=== PATIENT | female | born 1995 | race Caucasian/White ===

== ENCOUNTER 2020-10-21 16:30 | Emergency (ER) | payer OTHER, SELFPAY ==
[2020-10-21 16:40] VITALS: BP 132/86; PULSE 106; RESP 18; TEMP 36.2; O2SAT 98
--- NOTE | 2020-10-21 17:03 | ED.ALLEREA ---
HPI - Allergic Reaction General Chief complaint: Allergic Reaction Stated complaint: Allergic rx to COVID vaccine Time Seen by Provider: 10/21/20 16:32 History of Present Illness HPI narrative: 24 yo female w/ h/o asthma presents to the ED for possible allergic reaction. She just received the second dose of the COVID-19 vaccine. Shortly following that she began to feeling tingling in her lips, and a sensation of swelling in her throat. Observers thought her lips may be bigger than usual. She took benadryl. She had similar, but more mild symptoms after the first dose. No CP, SOB, nausea, rash Related Data Home Medications Medication Instructions Recorded Confirmed albuterol sulfate INHALATION 10/21/20 10/21/20 cetirizine mg 10/21/20 dextroamphetamine-amphetamine 10/21/20 Allergies Allergy/AdvReac Type Severity Reaction Status Date / Time No Known Allergies Allergy Verified 10/21/20 16:47 Review of Systems Review of Systems: All systems reviewed & are unremarkable except as noted in HPI and below Constitutional: Constitutional: Denies fever(s) and Denies weakness ENT: Denies sore throat Cardiovascular: Cardiovascular: Denies chest pain Respiratory: Respiratory: Denies dyspnea Gastrointestinal: Gastrointestinal: Denies abdominal pain and Denies nausea Neurologic: Denies dizziness and Denies weakness Allergic/Immunologic: Allergic/Immunologic: Reports lip swelling and Reports throat swelling PMF Past Medical History Medical History (Updated 10/21/20 @ 19:51 by Carlos Hensley MD) Asthma Social History Social History (Updated 10/21/20 @ 19:51 by Carlos Hensley MD) Smoking status: Never smoker Gender identity (if verbalized by the patient): Female Exam Const: General: healthy appearing, no acute distress and alert Orientation/consciousness: patient oriented x3 HENMT: Head: normal to inspection Other: No significant swelling of the lips tongue pallate or visable portion of the throat. Neck: Neck: normal visual inspection Resp: Effort & Inspection: normal respiratory effort Auscultation: clear to auscultation bilaterally Other: No stridor Cardio: Rate: regular rate Rhythm: regular rhythm GI: GI Palp: Yes Soft to palpation and No Tenderness to palpation present (GI) Skin: General skin exam: normal color Rashes: no rashes Neuro: General: patient oriented x3 and CN's II-XI intact bilaterally Speech: normal speech Extrem: General: normal to inspection Course Vital Signs Vital signs: Vital Signs Temperature 36.2 C L 10/21/20 16:40 Pulse Rate 106 H 10/21/20 16:40 Respiratory Rate 18 10/21/20 16:40 Blood Pressure 132/86 10/21/20 16:40 Pulse Oximetry 98 10/21/20 16:40 Temperature 36.2 C L 10/21/20 16:40 Pulse Rate 83 10/21/20 17:16 Respiratory Rate 25 H 10/21/20 17:16 Blood Pressure 116/91 H 10/21/20 17:16 Pulse Oximetry 99 10/21/20 17:16 MDM - Allergic Reaction MDM Narrative Medical decision making narrative: I see no objective evidence of allergic reaction at this time. I will observe her on the monitor an intervene if her condition changes. After 1 hour she says that her symptoms have resolve and her exam is unchanged. I believe that she is safe for discharge at this time. Differential Diagnosis Differential diagnosis: Likely anaphylaxis, allergic reaction, angioedema, adverse reaction to drug and other (anxiety) Discharge Plan Discharge Clinical Impression: Adverse reaction to drug Qualifiers: Encounter type: initial encounter Qualified Code(s): T50.905A - Adverse effect of unspecified drugs, medicaments and biological substances, initial encounter Patient Disposition: Home, Self-Care Condition: Stable Instructions: Allergies (ED) Prescriptions: No Action cetirizine 10 mg tablet RF: 0 dextroamphetamine-amphetamine 15 mg tablet RF: 0 albuterol sulfate 90 mcg/actuation HFA aerosol inhaler
[2020-10-21 17:16] VITALS: BP 116/91; PULSE 83; RESP 25; O2SAT 99
--- NOTE | 2020-10-21 17:23 | PC.NURSE ---
Pt states all sxs have resolved at this time. Dr. Hensley made aware.
== END 2020-10-21 17:41 | disposition home or self-care (01) ==
PROVIDERS: Emergency Provider Emergency Medicine; PCP Physician Assistant
DX: R09.89 Other specified symptoms and signs involving the circulatory and respiratory systems (principal); R20.2 Paresthesia of skin; T50.B95A Adverse effect of other viral vaccines, initial encounter; J45.909 Unspecified asthma, uncomplicated
CPT/HCPCS: 99281

== ENCOUNTER 2021-10-23 00:09 | Day surgery (SDC) | payer OTHER, SELFPAY ==
[2021-10-12 12:45] VITALS: BMI 47.3
[2021-10-23 11:41] VITALS: BP 135/92; PULSE 83; RESP 16; TEMP 35.9; O2SAT 98; BMI 45.8
--- NOTE | 2021-10-23 11:51 | WPDANESEPPF ---
Anes - Initial Pre Proc Eval Procedure: Operation Date: 10/23/21 13:00 Proposed Procedures p Colonoscopy - Kahlil Wallace MD Date/Time: 10/23/21 11:51 Surgeon: Kahlil Wallace MD Pre Op Diagnosis: hemorrhoids Patient Data Age: 25 Gender: F Height: 1.49 m Weight: 101.2 kg Last Vital Signs Temp 96.6 F L 10/23/21 11:41 Pulse 83 10/23/21 11:41 Resp 16 10/23/21 11:41 BP 135/92 H 10/23/21 11:41 Pulse Ox 98 10/23/21 11:41 Allergies Allergy/AdvReac Type Severity Reaction Status Date / Time No Known Allergies Allergy Verified 10/23/21 11:39 Home Medications Medication Instructions Recorded Confirmed Type albuterol sulfate 1 puff INHALATION PRN PRN 10/21/20 10/23/21 History cetirizine 10 mg PO DAILY 10/21/20 10/23/21 History dextroamphetamine-amphetamine 15 mg PO BID 10/21/20 10/23/21 History Patient hx anesthesia problems: none Family hx anesthesia problems: none Results Review: All pre-operative results and documents have been reviewed as part of the pre-operative evaluation. [facility] Past Medical History Medical History (Updated 09/07/21 @ 15:52 by Nelia Ramires MA) Acrochordon Anemia Asthma Obese Family History Family History (Updated 09/08/21 @ 08:21 by Nelia Ramires MA) Father Malignant neoplasm of prostate Hypertension Depression Mother Asthma Depression Cerebrovascular accident Thyroid disorder Sibling Thyroid disorder Depression Grandparent Diabetes mellitus Depression Hypertension Social History Social History (Updated 09/08/21 @ 08:27 by Nelia Ramires MA) Smoking status: Never smoker Second hand tobacco smoke exposure: No Alcohol intake: current Drinks per week: 1 Alcohol use details: vodka, tequila, whisky, & beer Substance use: never Substance use type: does not use Living arrangements: with family 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 Gender identity (if verbalized by the patient): Female Spiritual care concerns: No Agree to blood products: Yes Anes - Eval Final PreProcedure Day of Procedure 10/23/21 11:51 Patient weight: morbidly obese Heart: regular rate and rhythm Lungs: clear to auscultation Airway: Mallampati scale class II Neurological: alert and oriented Last oral intake: >/= 8 hours ASA classification: III Emergent: no Anesthetic plan: proceed Anesthesia type and monitoring: general GIVS and standard monitoring Results Review: All pre-operative results and documents have been reviewed as part of the pre-operative evaluation. Informed Consent: The patient's anesthetic plan and its attendant risks and benefits were discussed with the patient/family/POA. Questions were solicited and answers provided to the satisfaction of the patient/family/POA.
--- NOTE | 2021-10-23 11:54 | PM.HPGS ---
History of Present Illness History of Present Illness Consent: Risks, benefits, and alternatives have been discussed and questions answered. Patient agrees to proceed with procedure. Chief complaint: hemorrhoids Narrative: Mckayla Orellana is a 25 year old female with sensation of rectal protrusion and anal itching, never had colonoscopy Review of Systems Constitutional: Constitutional: Denies headache(s) and Denies weakness Eyes: Eyes: Denies blurry vision ENT: Reports Normal hearing present, Denies headache(s) and Denies neck pain Cardiovascular: Cardiovascular: Denies chest pain and Denies dyspnea Respiratory: Respiratory: Denies dyspnea Gastrointestinal: Gastrointestinal: Reports no additional gastrointestinal complaints Genitourinary: Genitourinary: Denies dysuria Musculoskeletal: Musculoskeletal: Denies neck pain Integumentary/Breasts: Skin/Breast: Denies dry skin Neurologic: Reports Normal hearing present, Denies headache(s) and Denies weakness Psychiatric: Psychiatric: Denies anxiety Endocrine: Endocrine: Denies change in body appearance Hematologic/Lymphatic: Hematologic/Lymphatic: Denies easy bleeding Allergic/Immunologic: Allergic/Immunologic: Denies urticaria PMFSH Past Medical History Medical History (Updated 10/23/21 @ 11:55 by Kahlil Wallace MD) Acrochordon Anemia Asthma Obese Rectal itching Family History Family History (Updated 09/08/21 @ 08:21 by Nelia Ramires MA) Father Malignant neoplasm of prostate Hypertension Depression Mother Asthma Depression Cerebrovascular accident Thyroid disorder Sibling Thyroid disorder Depression Grandparent Diabetes mellitus Depression Hypertension Social History Social History (Updated 09/08/21 @ 08:27 by Nelia Ramires MA) Smoking status: Never smoker Second hand tobacco smoke exposure: No Alcohol intake: current Drinks per week: 1 Alcohol use details: vodka, tequila, whisky, & beer Substance use: never Substance use type: does not use Living arrangements: with family 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 Gender identity (if verbalized by the patient): Female Spiritual care concerns: No Agree to blood products: Yes Meds Home Medications and Allergies Home Medications Medication Instructions Recorded Confirmed Type albuterol sulfate 1 puff INHALATION PRN PRN 10/21/20 10/23/21 History cetirizine 10 mg PO DAILY 10/21/20 10/23/21 History dextroamphetamine-amphetamine 15 mg PO BID 10/21/20 10/23/21 History Allergies Allergy/AdvReac Type Severity Reaction Status Date / Time No Known Allergies Allergy Verified 10/23/21 11:39 Vital Signs Vital Signs - 24 hr 10/23/21 11:41 Temperature 96.6 F L Pulse Rate 83 Respiratory Rate 16 Blood Pressure 135/92 H Pulse Oximetry 98 Exam Const: General: comfortable and no acute distress HENMT: General nose exam: Normal nares present Eyes: General: appearance normal, both eyes and all related structures Neck: Neck: no JVD Resp: Auscultation: clear to auscultation bilaterally Cardio: Rate: regular rate Rhythm: regular rhythm GI: Inspection: non-distended GI Palp: Yes Soft to palpation Skin: General skin exam: normal color Neuro: General: gait normal Speech: normal speech Extrem: General: normal to inspection Psych: Mental Status: mental status grossly normal Assessment and Plan Assessment and plan (1) Rectal itching: Code(s): L29.0 - Pruritus ani Status: Acute Assessment and Plan: sensation of protrusion and itching, probably hemorrhoids will assess with colonoscopy
[2021-10-23] MEDS: LACTATED RINGERS 1,000 ML 150 ML IV CONT (11:59)
[2021-10-23 12:22] VITALS: BP 128/95; PULSE 96; RESP 20; O2SAT 98
[2021-10-23 12:32] VITALS: BP 119/89; PULSE 67; RESP 17; O2SAT 100
--- NOTE | 2021-10-23 12:41 | SUR.PHASEII ---
RN updated family
[2021-10-23 12:42] VITALS: BP 132/83; PULSE 59; RESP 20; O2SAT 100
== END 2021-10-23 12:50 | disposition home or self-care (01) ==
PROVIDERS: PCP Physician Assistant; Visit Provider Internal Medicine Gastroenterology
PROC: 0DJD8ZZ Inspection of Lower Intestinal Tract, Via Natural or Artificial Opening Endoscopic (ICD-10-PCS; CPT 45378; principal; 2021-10-23 13:00)
DX: K64.9 Unspecified hemorrhoids (principal); D64.9 Anemia, unspecified; J45.909 Unspecified asthma, uncomplicated; E66.01 Morbid (severe) obesity due to excess calories; Z68.42 Body mass index [BMI] 45.0-49.9, adult; Z79.51 Long term (current) use of inhaled steroids; L29.0 Pruritus ani
CPT/HCPCS: 45378; J2704; J7120

== ENCOUNTER 2021-11-15 18:05 | Emergency (ER) | payer OTHER, SELFPAY ==
--- NOTE | ~2021-11-15 | XR_ITS ---
EXAMINATION: XR forearm LT 2V EXAM DATE: 11/15/2021 18:21 INDICATION: Fall on outstretched hand, left forearm pain. TECHNIQUE: Left forearm frontal and lateral projections obtained and reviewed. There is no prior alberto dy for comparison. FINDINGS: There are no acute fractures or dislocations identified. There is no subcutaneous gas. Th e soft tissue is unremarkable. There are no radiopaque foreign bodies. IMPRESSION: 1. XR forearm LT 2V exam without acute osseous findings. Reviewed, dictated and finalized at location G. ER PRESS OPERATOR
[2021-11-15 18:15] VITALS: BP 127/70; PULSE 82; RESP 16; TEMP 37.2; O2SAT 99
--- NOTE | 2021-11-15 18:21 | PC.NURSE ---
PT DECLINED ICE FOR COMFORT
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
== END 2021-11-15 18:44 | disposition home or self-care (01) ==
PROVIDERS: Emergency Provider Nurse Practitioner; PCP Physician Assistant
DX: S63.502A Unspecified sprain of left wrist, initial encounter (principal); X58.XXXA Exposure to other specified factors, initial encounter; J45.909 Unspecified asthma, uncomplicated; E66.9 Obesity, unspecified; Z68.42 Body mass index [BMI] 45.0-49.9, adult
CPT/HCPCS: 73090; 99213; G0463

== ENCOUNTER 2021-11-23 02:20 | Day surgery (SDC) | payer OTHER, SELFPAY ==
[2021-11-10 13:52] VITALS: BMI 47.0
[2021-11-23 12:15] VITALS: BP 138/90; PULSE 86; RESP 16; TEMP 36.3; O2SAT 100
--- NOTE | 2021-11-23 12:35 | WPDHPUPDATE1 ---
History and Physical Update Update Date/Time: 11/23/21 12:35 History and Physical has been reviewed, including an updated exam of the patient. There are NO changes in the patient's condition. Risks, benefits, and alternatives have been discussed and questions answered. Patient agrees to proceed with procedure.
--- NOTE | 2021-11-23 12:36 | W.PM.PROC2 ---
Procedure Note - Detailed Date of Procedure 11/23/21 Pre-op Diagnosis hemorrhoids Post-op Diagnosis same Procedure Performed IRC (infrared coagulation of hemorhoids) Surgeon Kahlil Wallace MD Anesthesia none Indications hemorrhoids Description of Procedure rectal exam no fissure, then introduced anoscope and found grade II internal hemorrhoids, no bleeding. Then used IRC probe and hemorrhoids treated x5, 1.5 seconds each time, patient tolerated procedure. Complications No immediate complications Condition stable
[2021-11-23 12:42] VITALS: BP 131/89; PULSE 89; RESP 16; O2SAT 100
== END 2021-11-23 12:36 | disposition home or self-care (01) ==
PROVIDERS: PCP Physician Assistant; Visit Provider Internal Medicine Gastroenterology
PROC: (CPT 46930; principal; 2021-11-23 12:30)
DX: K64.1 Second degree hemorrhoids (principal); J45.909 Unspecified asthma, uncomplicated; Z79.51 Long term (current) use of inhaled steroids
CPT/HCPCS: 46930

== ENCOUNTER 2022-03-05 16:04 | Outpatient (CLI) | payer OTHER, SELFPAY ==
--- NOTE | ~2022-03-05 | US_ITS ---
EXAMINATION: US OB /maternal detail DATE: 03/05/2022 17:25 INDICATION: survey TECHNIQUE: Multiple obstetric sonographic images performed. FINDINGS: No prior studies for comparison. There is a single living fetus in variable presentation. The placenta is posterior without placenta previa. Amniotic fluid volume is normal. cardiac activity and movement is noted with a heart rate of 150 beats per minute. The following anatomy was identified as normal: 4 chamber heart 3 vessel cord cord insertion kidneys urinary bladder stomach spine diaphragm ventricles cisterna magna cerebellum The following biometric data were obtained: BPD: 45mm corresponds to gestational age 19 weeks 5 days. Head circumference: 161 mm corresponds to gestational age 18 weeks 6 days. Abdominal circumference: 136 mm corresponds to gestational age 19 weeks 0 days. Femur length: 27 mm corresponds to gestational age 18 weeks 3 days. Head circumference to abdominal circumference ratio: 1.18 (normal range for expected gestational age is 1.09-1.26). Estimated weight: 257 grams +/- 39 grams using Hadlock method. IMPRESSION: 1: Single living intrauterine with an estimated gestational age of 19weeks 0days by current ultrasound measurements, with an EDC of 07/30/2022 in variable presentation. 2. Normal survey. Reviewed, dictated and finalized at location A. IMPRESSION: 1: Single living intrauterine with an estimated gestational age of 19 weeks 0days by current ultrasound measurements, with an EDC of 07/30/2022 in va riable presentation. 2. Normal survey.
== END 2022-03-05 16:05 | disposition home or self-care (01) ==
LOC: ANHIMG 16:13
PROVIDERS: PCP Physician Assistant; Visit Provider Obstetrics & Gynecology
DX: Z34.90 Encounter for supervision of normal pregnancy, unspecified, unspecified trimester (principal); Z3A.19 19 weeks gestation of pregnancy
CPT/HCPCS: 76805

== ENCOUNTER 2023-03-24 08:16 | Outpatient (CLI) | payer OTHER, SELFPAY ==
[2023-03-24 19:48] LABS: Basophils Absolute Auto 0.1 K/mm3 (0.0-0.1); Basophils Percent Auto 0.7 % (0.2-1.2); Eosinophils Absolute Auto 0.7 K/mm3 (0-0.3); Eosinophils Percent Auto 5.5 % (0-4.4); Hematocrit 45.4 % (37.0-47.0); Hemoglobin 14.4 g/dL (12.0-15.0); Immature Granulocyte Absolute 0.06 K/mm3 (0.00-0.031); Immature Granulocyte Percent A 0.5 % (0-0.5); Lymphocytes Absolute Auto 2.97 K/mm3 (0.9-3.2); Lymphocytes Percent Auto 24.7 % (18.3-44.2); Mean Corpuscular HGB Conc 31.7 g/dl (32-36); Mean Corpuscular Hemoglobin 29.3 pg (26-34); Mean Corpuscular Volume 92.5 fl (80-100); Mean Platelet Volume 10.1 fl (7.4-10.4); Monocytes Absolute Auto 0.6 K/mm3 (0.1-0.6); Monocytes Percent Auto 4.6 % (2.6-8.5); Neutrophils Absolute Auto 7.7 K/mm3 (1.3-6.7); Platelet Count Result 354 k/mm3 (150-375); Red Blood Count 4.91 M/mm3 (4.2-5.4); Red Cell Distribution Width 13.1 % (11.5-14.5)
[2023-03-24 22:07] LABS: Alanine Aminotransferase 41 U/L (6-35); Albumin Level 4.6 g/dL (3.5-5.1); Alkaline Phosphatase 73 U/L (38-126); Anion Gap 5 mmol/L (8-16); Aspartate Amino Transferase 50 U/L (14-36); Bilirubin,Total 0.8 mg/dL (0.2-1.3); Blood Urea Nitrogen 10 mg/dL (7-17); Calcium 8.9 mg/dL (8.4-10.2); Carbon Dioxide 28 mmol/L (22-30); Chloride 103 mmol/L (98-107); Cholesterol 192 mg/dL (0-200); Estimated Glomerular Filt Rate > 60; Glucose 87 mg/dL (65-110); HDL Direct 50 mg/dL; Potassium 4.2 mmol/L (3.4-5.0); Sodium 136 mmol/L (137-145); Triglycerides 147 mg/dL (<150)
[2023-03-24 22:26] LABS: LDL Cholesterol Direct 112 mg/dL
[2023-03-24 23:10] LABS: Folic Acid 12.2 ng/mL (2.76->20)
[2023-03-25 00:51] LABS: Hemoglobin A1C 4.9 % (<5.7)
[2023-03-25 01:47] LABS: Free T4 Free Thyroxine 1.35 ng/mL (0.78-2.19); Vitamin D 25 Hydroxy 25.6 ng/mL
== END 2023-03-24 08:17 | disposition home or self-care (01) ==
LOC: ANHBWCLAB 08:18
PROVIDERS: PCP Physician Assistant; Visit Provider Physician Assistant
DX: R53.83 Other fatigue (principal); Z13.220 Encounter for screening for lipoid disorders; Z13.1 Encounter for screening for diabetes mellitus
CPT/HCPCS: 36415; 80053; 80061; 82306; 82607; 82746; 83036; 84439; 84443; 85025

== ENCOUNTER 2023-05-05 11:29 | Outpatient (CLI) | payer OTHER, SELFPAY ==
[2023-05-05 20:00] LABS: Alanine Aminotransferase 40 U/L (6-35); Albumin Level 4.5 g/dL (3.5-5.1); Alkaline Phosphatase 70 U/L (38-126); Aspartate Amino Transferase 47 U/L (14-36); Bilirubin,Total 0.5 mg/dL (0.2-1.3)
[2023-05-05 20:13] LABS: Basophils Absolute Auto 0.1 K/mm3 (0.0-0.1); Basophils Percent Auto 0.8 % (0.2-1.2); Eosinophils Absolute Auto 0.7 K/mm3 (0-0.3); Eosinophils Percent Auto 7.1 % (0-4.4); Hematocrit 45.4 % (37.0-47.0); Hemoglobin 14.4 g/dL (12.0-15.0); Immature Granulocyte Absolute 0.06 K/mm3 (0.00-0.031); Immature Granulocyte Percent A 0.6 % (0-0.5); Lymphocytes Absolute Auto 3.01 K/mm3 (0.9-3.2); Lymphocytes Percent Auto 31.9 % (18.3-44.2); Mean Corpuscular HGB Conc 31.7 g/dl (32-36); Mean Corpuscular Hemoglobin 28.9 pg (26-34); Mean Platelet Volume 9.9 fl (7.4-10.4); Monocytes Absolute Auto 0.6 K/mm3 (0.1-0.6); Monocytes Percent Auto 5.8 % (2.6-8.5); Neutrophils Absolute Auto 5.1 K/mm3 (1.3-6.7); Neutrophils Percent Auto 53.8 % (45.5-73.1); Platelet Count Result 392 k/mm3 (150-375); Red Blood Count 4.99 M/mm3 (4.2-5.4); Red Cell Distribution Width 12.3 % (11.5-14.5); White Blood Count 9.4 K/mm3 (4.5-10.0)
[2023-05-05 20:24] LABS: Hepatitis B Surface Antigen Negative (Negative)
[2023-05-05 20:30] LABS: HAV RESULT Negative (Negative); Hepatitis B Core IgM Result Negative (Negative)
[2023-05-05 20:41] LABS: Hepatitis C Virus Antibody Negative (Negative)
[2023-05-08 19:30] LABS: GGT 16 U/L (3-40)
== END 2023-05-05 11:30 | disposition home or self-care (01) ==
PROVIDERS: PCP Physician Assistant; Visit Provider Physician Assistant
DX: D72.829 Elevated white blood cell count, unspecified (principal); R74.01 Elevation of levels of liver transaminase levels
CPT/HCPCS: 36415; 80074; 80076; 82977; 85025

== ENCOUNTER 2023-09-12 00:52 | Day surgery (SDC) | payer OTHER, SELFPAY ==
[2023-09-06 11:24] VITALS: BMI 49.7
--- NOTE | 2023-09-09 09:27 | SUR.PREOP ---
Patient called regarding upcoming procedure. Reviewed preop instructions, appointment times, and procedure prep.
--- NOTE | 2023-09-09 14:59 | PM.HPGS ---
History of Present Illness History of Present Illness Consent: Risks, benefits, and alternatives have been discussed and questions answered. Patient agrees to proceed with procedure. Chief complaint: Epigastric Pain Narrative: Mckayla Orellana is a 27 year old female Referred for endoscopy to investigate epigastric pain. she has a history of acid reflux with symptoms of heartburn and occasional vomiting. She also has a sensation that food is stuck in her throat. She is able to drink water but the sensation will last even after meal. She has not had weight loss. There is concern, because her grandmother developed ulcers and eventually from that. Just a couple weeks ago she was switched from omeprazole to pantoprazole and is doing better with that. Review of Systems Review of Systems: All systems reviewed & are unremarkable except as noted in HPI and below PMFSH Past Medical History Medical History Acrochordon Anemia Asthma Obese Rectal itching Surgical History Surgical History No pertinent past surgical history Family History Family History Father Malignant neoplasm of prostate Hypertension Depression Mother Asthma Depression Cerebrovascular accident Thyroid disorder Sibling Thyroid disorder Depression Grandparent Diabetes mellitus Depression Hypertension Social History Social History Smoking status: Never smoker Second hand tobacco smoke exposure: No Alcohol intake: never Drinks per week: 1 Alcohol use details: SOCIALLY Substance use: never Substance use type: does not use Living arrangements: with family Occupation/Education: occupation 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 Gender identity (if verbalized by the patient): Female Spiritual care concerns: No Agree to blood products: Yes Meds Home Medications and Allergies Home Medications Medication Instructions Recorded Confirmed Type albuterol sulfate 90 mcg/actuation 1 puff inhalation PRN PRN Cough 10/21/20 09/12/23 History aerosol inhaler cetirizine 10 mg tablet 10 mg PO DAILY 10/21/20 09/12/23 History dextroamphetamine-amphetamine 15 15 mg PO BID 10/21/20 09/12/23 History mg tablet famotidine 40 mg tablet 40 mg PO DAILY 09/06/23 09/12/23 History pantoprazole 40 mg tablet,delayed 40 mg PO DAILY 09/06/23 09/12/23 History release Allergies Allergy/AdvReac Type Severity Reaction Status Date / Time No Known Allergies Allergy Verified 09/12/23 11:52 Exam Const: General: alert Orientation/consciousness: patient oriented x3 Resp: Auscultation: clear to auscultation bilaterally Cardio: Rhythm: regular rhythm GI: GI Palp: Yes Soft to palpation and No Tenderness to palpation present (GI) Neuro: General: patient oriented x3 Assessment and Plan Assessment and plan (1) Epigastric pain: Code(s): R10.13 - Epigastric pain Status: Acute Assessment and Plan: EGD with possible biopsy or dilatation or cautery.
[2023-09-12 11:40] VITALS: BP 134/91; PULSE 69; RESP 18; TEMP 36.2; O2SAT 100; BMI 49.6
[2023-09-12] MEDS: LACTATED RINGERS 1,000 ML 150 ML IV CONT (12:03)
--- NOTE | 2023-09-12 12:29 | WPDANESEPPF ---
Anes - Initial Pre Proc Eval Procedure: Operation Date: 09/12/23 13:00 Proposed Procedures p Esophagogastroduodenoscopy - Mike Valles MD Date/Time: 09/12/23 12:29 Surgeon: Mike Valles MD Pre Op Diagnosis: Epigastric Pain Patient Data Age: 27 Gender: F Height: 1.47 m Weight: 107.7 kg Last Vital Signs Temp 97.2 F L 09/12/23 11:40 Pulse 69 09/12/23 11:40 Resp 18 09/12/23 11:40 BP 134/91 H 09/12/23 11:40 Pulse Ox 100 09/12/23 11:40 O2 Del Method Room Air 09/12/23 11:40 Allergies Allergy/AdvReac Type Severity Reaction Status Date / Time No Known Allergies Allergy Verified 09/12/23 11:52 Home Medications Medication Instructions Recorded Confirmed Type albuterol sulfate 90 mcg/actuation 1 puff inhalation PRN PRN Cough 10/21/20 09/12/23 History aerosol inhaler cetirizine 10 mg tablet 10 mg PO DAILY 10/21/20 09/12/23 History dextroamphetamine-amphetamine 15 15 mg PO BID 10/21/20 09/12/23 History mg tablet famotidine 40 mg tablet 40 mg PO DAILY 09/06/23 09/12/23 History pantoprazole 40 mg tablet,delayed 40 mg PO DAILY 09/06/23 09/12/23 History release Patient hx anesthesia problems: none Family hx anesthesia problems: none Results Review: All pre-operative results and documents have been reviewed as part of the pre-operative evaluation. [facility] Past Medical History Medical History Acrochordon Anemia Asthma Obese Rectal itching Surgical History Surgical History No pertinent past surgical history Family History Family History Father Malignant neoplasm of prostate Hypertension Depression Mother Asthma Depression Cerebrovascular accident Thyroid disorder Sibling Thyroid disorder Depression Grandparent Diabetes mellitus Depression Hypertension Social History Social History Smoking status: Never smoker Second hand tobacco smoke exposure: No Alcohol intake: never Drinks per week: 1 Alcohol use details: SOCIALLY Substance use: never Substance use type: does not use Living arrangements: with family Occupation/Education: occupation 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 Informed Consent: The patient's anesthetic plan and its attendant risks and benefits were discussed with the patient/family/POA. Questions were solicited and answers provided to the satisfaction of the patient/family/POA.
[2023-09-12] MEDS: SIMETHICONE ORAL SUSPENSION 20 MG/0.3 ML 30 ML BOTTLE 0.6 ML IRRIGATION (12:37)
[2023-09-12 12:43] VITALS: BP 120/77; PULSE 83; RESP 19; O2SAT 100
[2023-09-12 12:53] VITALS: BP 127/84; PULSE 80; RESP 24; O2SAT 100
[2023-09-12 13:03] VITALS: BP 119/87; PULSE 62; RESP 20; O2SAT 100
== END 2023-09-12 13:10 | disposition home or self-care (01) ==
PROVIDERS: PCP Physician Assistant; Visit Provider Internal Medicine Gastroenterology
PROC: 0DJ08ZZ Inspection of Upper Intestinal Tract, Via Natural or Artificial Opening Endoscopic (ICD-10-PCS; CPT 43235; principal; 2023-09-12 13:00)
DX: K21.9 Gastro-esophageal reflux disease without esophagitis (principal); D64.9 Anemia, unspecified; J45.909 Unspecified asthma, uncomplicated; E66.01 Morbid (severe) obesity due to excess calories; Z68.42 Body mass index [BMI] 45.0-49.9, adult; Z79.51 Long term (current) use of inhaled steroids; Z80.42 Family history of malignant neoplasm of prostate; Z82.49 Family history of ischemic heart disease and other diseases of the circulatory system
CPT/HCPCS: 43235; J2704; J7120

== ENCOUNTER 2023-09-16 08:54 | Outpatient (CLI) | payer OTHER, SELFPAY ==
--- NOTE | ~2023-09-16 | US_ITS ---
US abdomen complete EXAMINATION: US Abdomen Complete INDICATION: Epigastric pain PROCEDURE: Realtime High Resolution abdomen ultrasound. COMPARISON: No prior studies for comparison FINDINGS: Gallbladder within normal limits. No gallstones, pericholecystic fluid, gallbladder wall t hickening or biliary dilatation. Common bile duct measures 4.5 mm. Liver echotexture is increased, consistent with fatty infiltration.. Pancreas within normal limits. Pancreatic tail is obscured by bowel gas. Spleen is unremarkeable. Renal echotexture is within norm al limits bilaterally without hydronephrosis, contour deforming mass or renal stone. Right kidney daron sures 10.2 cm. Left kidney measures 10.4 cm. There is a small 1.3 cm right renal cyst with layering m ilk of calcium. Visualized aspects of the aorta and IVC are within normal limits. Portal vein is patent. No sonograph ic Whitley's sign indicated by the technologist. IMPRESSION: 1: Fatty infiltration of the liver. 2: Right renal cyst measuring 1.3 cm with layering milk of calcium. Reviewed, dictated and finalized at location B. [employer]
--- NOTE | ~2023-09-16 | XR_ITS ---
EXAMINATION: XR UGIAC wo kub DATE: 09/16/2023 10:52 INDICATION: Gastroesophageal reflux disease TECHNIQUE: The patient drank thick barium, gas-producing crystals, and thin barium. A total of 472 fl uoroscopic images of the esophagus, stomach, and proximal small bowel were obtained. Fluoroscopy expo sure time was 1.4 minutes. Total DAP was 14.148 Gycm^2 COMPARISON: None. FINDINGS: The esophagus is normal without mass or stricture. Esophageal motility is normal. There is no hiatal hernia. There was no gastroesophageal reflux with provocative maneuvers. A small diverticul um arising from the second portion of the duodenum. The stomach and proximal small bowel are otherwis e normal. IMPRESSION: 1. Very small duodenal diverticulum. Otherwise normal upper GI study. Reviewed, dictated and finalized at location A. [employer]
== END 2023-09-16 08:55 | disposition home or self-care (01) ==
PROVIDERS: PCP Physician Assistant; Visit Provider Physician Assistant
DX: K57.10 Diverticulosis of small intestine without perforation or abscess without bleeding (principal); N28.1 Cyst of kidney, acquired; K76.0 Fatty (change of) liver, not elsewhere classified; R74.01 Elevation of levels of liver transaminase levels; K21.9 Gastro-esophageal reflux disease without esophagitis
CPT/HCPCS: 74246; 76700

== ENCOUNTER 2024-09-17 15:37 | Outpatient (CLI) | payer OTHER, MEDICAID, SELFPAY ==
[2024-09-17 16:31] VITALS: BP 113/67; PULSE 84; BMI 59.2
[2024-09-17 16:46] VITALS: BP 94/69; PULSE 102
[2024-09-17 16:49] LABS: Basophils Absolute Auto 0.1 K/mm3 (0.0-0.1); Basophils Percent Auto 0.5 % (0.2-1.2); Eosinophils Absolute Auto 0.4 K/mm3 (0-0.3); Hematocrit 34.6 % (37.0-47.0); Hemoglobin 11.5 g/dL (12.0-15.0); Immature Granulocyte Absolute 0.08 K/mm3 (0.00-0.031); Immature Granulocyte Percent A 0.7 % (0-0.5); Lymphocytes Absolute Auto 2.44 K/mm3 (0.9-3.2); Lymphocytes Percent Auto 22.1 % (18.3-44.2); Mean Corpuscular HGB Conc 33.2 g/dl (32-36); Mean Corpuscular Hemoglobin 27.4 pg (26-34); Mean Corpuscular Volume 82.4 fl (80-100); Monocytes Absolute Auto 0.7 K/mm3 (0.1-0.6); Monocytes Percent Auto 6.7 % (2.6-8.5); Neutrophils Absolute Auto 7.3 K/mm3 (1.3-6.7); Platelet Count Result 266 k/mm3 (150-375); Red Cell Distribution Width 13.4 % (11.5-14.5)
[2024-09-17 16:53] VITALS: BP 124/80; PULSE 88
[2024-09-17 17:01] VITALS: BP 124/74; PULSE 76
[2024-09-17 17:01] LABS: Alanine Aminotransferase 13 U/L (6-35); Albumin Level 3.4 g/dL (3.5-5.1); Alkaline Phosphatase 114 U/L (38-126); Anion Gap 5 mmol/L (4-12); Aspartate Amino Transferase 18 U/L (14-36); Bilirubin,Total 0.3 mg/dL (0.2-1.3); Blood Urea Nitrogen 9 mg/dL (7-17); Calcium 8.6 mg/dL (8.4-10.2); Carbon Dioxide 21 mmol/L (22-30); Chloride 107 mmol/L (98-107); Estimated Glomerular Filt Rate > 60; Glucose 87 mg/dL (65-110); Potassium 3.8 mmol/L (3.4-5.0); Sodium 133 mmol/L (137-145); Uric Acid 5.4 mg/dL (2.5-7.5)
[2024-09-17 17:08] LABS: Add Urine Microscopic? YES; Appearance Urine Turbid (Clear); Bacteria Urine 4+ /hpf; Bilirubin Urine Negative (Negative); Blood Urine Negative (Negative); Color Urine Yellow (Yellow); Glucose Urine UA Negative (Negative); Ketones Urine Negative (Negative); Leukocyte Esterase Ur 2+ LEU/UL (Negative); Need Manual Microscopic Reviewed; Nitrate Urine Negative (Negative); Non Pathogenic Casts 0-2; Protein Urine Trace mg/dL (Negative); RBC Urine 21-50 /hpf (0-2); Specific Grav Ur 1.013 (1.001-1.035); Squamous Epithelial Cell Urine Moderate /hpf (Few); Urobilinogen Urine 0.2 mg/dL (<2.0); WBC Urine 21-50 /hpf (0-3)
[2024-09-17 17:16] VITALS: BP 124/75; PULSE 83
[2024-09-17 17:20] LABS: Creatinine Urine 73.6 mg/dL; Total Protein Urine Random 11 mg/dL; Ur Ttl Prot Creatinine Ratio 0.15 mg/mg (0-0.20)
[2024-09-17 17:32] VITALS: BP 128/64; PULSE 81
[2024-09-24 16:53] LABS: Chenodeoxycholic Acid 0.6 umol/L (< OR = 3.9); Cholic Acid <0.5 umol/L (< OR = 2.8); Deoxycholic Acid <0.5 umol/L (< OR = 2.3); Total Bile Acids <1.5 umol/L (< OR = 8.3)
== END 2024-09-17 17:45 | disposition home or self-care (01) ==
LOC: ANHOBOP 15:47 → ANHOBPP 09-24 08:29
PROVIDERS: PCP Physician Assistant; Visit Provider Obstetrics & Gynecology
DX: O13.9 Gestational [pregnancy-induced] hypertension without significant proteinuria, unspecified trimester (principal); Z3A.00 Weeks of gestation of pregnancy not specified
CPT/HCPCS: 36415; 59025; 80053; 81001; 82542; 82570; 84156; 84550; 85025; 87086; 99199

== ENCOUNTER 2024-09-28 15:56 | Outpatient (CLI) | payer OTHER, MEDICAID, SELFPAY ==
[2024-09-28 16:27] VITALS: BP 156/92; PULSE 79
[2024-09-28 16:31] VITALS: BP 156/93; PULSE 83
[2024-09-28 16:34] LABS: Basophils Absolute Auto 0.1 K/mm3 (0.0-0.1); Basophils Percent Auto 0.5 % (0.2-1.2); Eosinophils Absolute Auto 0.4 K/mm3 (0-0.3); Eosinophils Percent Auto 3.6 % (0-4.4); Hemoglobin 12.6 g/dL (12.0-15.0); Immature Granulocyte Absolute 0.08 K/mm3 (0.00-0.031); Immature Granulocyte Percent A 0.7 % (0-0.5); Immature Platelet Fraction Pct 7.8 % (0.9-11.2); Lymphocytes Absolute Auto 2.71 K/mm3 (0.9-3.2); Lymphocytes Percent Auto 25.3 % (18.3-44.2); Mean Corpuscular HGB Conc 33.2 g/dl (32-36); Mean Corpuscular Hemoglobin 27.3 pg (26-34); Mean Corpuscular Volume 82.4 fl (80-100); Mean Platelet Volume 11.4 fl (7.4-10.4); Monocytes Absolute Auto 0.7 K/mm3 (0.1-0.6); Monocytes Percent Auto 6.9 % (2.6-8.5); Neutrophils Absolute Auto 6.7 K/mm3 (1.3-6.7); Platelet Count Result 282 k/mm3 (150-375); Red Blood Count 4.61 M/mm3 (4.2-5.4); Red Cell Distribution Width 13.6 % (11.5-14.5); White Blood Count 10.7 K/mm3 (4.5-10.0)
[2024-09-28 16:37] LABS: Add Urine Microscopic? NO; Appearance Urine Clear (Clear); Bilirubin Urine Negative (Negative); Blood Urine Negative (Negative); Color Urine Yellow (Yellow); Glucose Urine UA Negative (Negative); Ketones Urine Negative (Negative); Leukocyte Esterase Ur Negative LEU/UL (Negative); Nitrate Urine Negative (Negative); Protein Urine Negative (Negative)
[2024-09-28 16:42] LABS: Creatinine Urine 61.9 mg/dL; Total Protein Urine Random 11 mg/dL; Ur Ttl Prot Creatinine Ratio 0.18 mg/mg (0-0.20)
[2024-09-28 16:44] LABS: Alanine Aminotransferase 14 U/L (6-35); Albumin Level 3.6 g/dL (3.5-5.1); Alkaline Phosphatase 133 U/L (38-126); Anion Gap 5 mmol/L (4-12); Aspartate Amino Transferase 23 U/L (14-36); Bilirubin,Total 0.4 mg/dL (0.2-1.3); Blood Urea Nitrogen 7 mg/dL (7-17); Calcium 8.9 mg/dL (8.4-10.2); Carbon Dioxide 21 mmol/L (22-30); Chloride 106 mmol/L (98-107); Estimated Glomerular Filt Rate > 60; Glucose 89 mg/dL (65-110); Potassium 4.3 mmol/L (3.4-5.0); Sodium 132 mmol/L (137-145); Uric Acid 4.8 mg/dL (2.5-7.5)
[2024-09-28 16:46] VITALS: BP 150/88; PULSE 78
[2024-09-28 16:57] LABS: Platelet Estimate Adequate (Adequate); Schistocytes None Seen
== END 2024-09-28 17:30 | disposition home or self-care (01) ==
LOC: ANHOBOP 16:02 → ANHLDR 16:04
PROVIDERS: PCP Physician Assistant; Visit Provider Obstetrics & Gynecology
DX: O13.9 Gestational [pregnancy-induced] hypertension without significant proteinuria, unspecified trimester (principal); Z3A.00 Weeks of gestation of pregnancy not specified
CPT/HCPCS: 36415; 59025; 80053; 81003; 82570; 84156; 84550; 85025; 85055; 99199

== ENCOUNTER 2024-09-29 16:46 | Inpatient (IN) | payer OTHER, MEDICAID, SELFPAY ==
[2024-09-29] VITALS (25 sets, daily range): BP systolic 123–154; BP diastolic 73–112; PULSE 79–93; TEMP 36.6–36.7; BMI 60.8
--- NOTE | 2024-09-29 16:46 | LDADM ---
This patient, Mckayla Orellana, was admitted to Labor/Delivery/Recovery 104 on 09/29/24 at 16:46. Plans for labor, pain management and were discussed with patient. Patient/family oriented to hospital policies and general routines including ID bracelet, bed and alarms, visiting hours, pain management, procedures, bathroom and other care routines, personal items, smoking policy, room service/diet and guest tray routines, infant security routines, and visiting hours. Patient/Family are encouraged to report perceived risks to care and to ask questions if they do not understand what they are told or what they should do. See OBIX for further documentation.
[2024-09-29 17:41] LABS: Basophils Percent Auto 0.4 % (0.2-1.2); Eosinophils Absolute Auto 0.3 K/mm3 (0-0.3); Eosinophils Percent Auto 2.4 % (0-4.4); Hematocrit 35.5 % (37.0-47.0); Hemoglobin 11.9 g/dL (12.0-15.0); Immature Granulocyte Absolute 0.09 K/mm3 (0.00-0.031); Immature Granulocyte Percent A 0.8 % (0-0.5); Lymphocytes Absolute Auto 2.44 K/mm3 (0.9-3.2); Lymphocytes Percent Auto 21.7 % (18.3-44.2); Mean Corpuscular HGB Conc 33.5 g/dl (32-36); Mean Corpuscular Hemoglobin 27.2 pg (26-34); Mean Corpuscular Volume 81.2 fl (80-100); Mean Platelet Volume 10.9 fl (7.4-10.4); Monocytes Absolute Auto 0.6 K/mm3 (0.1-0.6); Monocytes Percent Auto 5.4 % (2.6-8.5); Neutrophils Absolute Auto 7.8 K/mm3 (1.3-6.7); Neutrophils Percent Auto 69.3 % (45.5-73.1); Platelet Count Result 313 k/mm3 (150-375); Red Blood Count 4.37 M/mm3 (4.2-5.4); Red Cell Distribution Width 13.4 % (11.5-14.5); White Blood Count 11.3 K/mm3 (4.5-10.0)
[2024-09-29 17:52] LABS: Alanine Aminotransferase 14 U/L (6-35); Albumin Level 3.5 g/dL (3.5-5.1); Alkaline Phosphatase 139 U/L (38-126); Anion Gap 4 mmol/L (4-12); Aspartate Amino Transferase 20 U/L (14-36); Bilirubin,Total 0.3 mg/dL (0.2-1.3); Blood Urea Nitrogen 7 mg/dL (7-17); Calcium 8.9 mg/dL (8.4-10.2); Carbon Dioxide 21 mmol/L (22-30); Chloride 107 mmol/L (98-107); Estimated Glomerular Filt Rate > 60; Glucose 108 mg/dL (65-110); Potassium 3.8 mmol/L (3.4-5.0); Sodium 132 mmol/L (137-145); Uric Acid 5.4 mg/dL (2.5-7.5)
[2024-09-29 18:01] LABS: Rapid Plasma Reagin Non-Reactive (NonReactive)
[2024-09-29] MEDS: DINOPROSTONE 10 MG VAG INSERT VAGINAL (18:18)
[2024-09-29 18:33] LABS: HIV 1/2 Ab P24 Ag Result Negative (Negative)
[2024-09-29] MEDS: ONDANSETRON INJ 4 MG/2 ML VIAL IV PUSH (23:41)
[2024-09-30] VITALS (226 sets, daily range): BP systolic 78–158; BP diastolic 42–126; PULSE 56–135; RESP 15–19; TEMP 36.2–37.1; O2SAT 89–100
[2024-09-30] MEDS: fentaNYL CITRATE INJ (*CRX) 100 MCG/2 ML VIAL IV PUSH (02:30)
[2024-09-30] MEDS: OXYTOCIN 30 UNITS/NS 500 ML 30 UNITS/500 ML BAG IV CONT (05:27)
[2024-09-30] MEDS: LACTATED RINGERS 1,000 ML 125 ML IV CONT ×3 (05:32→13:02)
--- NOTE | 2024-09-30 06:47 | P.PNAN_ITS ---
Anes - Eval Pre Procedure Procedure: labor epidural Date/Time: 09/30/24 06:47 Surgeon: ami Preop Diagnosis: pain during labor Pre Op Diagnosis: Induction of Labor Patient Data Age: 28 Gender: F Height: 1.47 m Weight: 132 kg Last Vital Signs Temp 36.2 C L 09/30/24 06:32 Pulse 84 09/30/24 06:46 BP 122/73 09/30/24 06:46 O2 Del Method Room Air 09/29/24 22:52 Allergies Allergy/AdvReac Type Severity Reaction Status Date / Time No Known Allergies Allergy Verified 09/29/24 17:50 Home Medications ?Medication ?Instructions ?Recorded ?Confirmed ?Type albuterol sulfate 90 mcg/actuation 1 puff inhalation PRN PRN Cough 10/21/20 09/25/24 History aerosol inhaler cetirizine 10 mg tablet 10 mg PO DAILY 10/21/20 09/29/24 History vit no.95-ferrous 1 tablet PO DAILY 09/25/24 09/29/24 History fumarate 28 mg-folic acid 800 mcg tablet () Laboratory Tests 09/29/24 17:00 WBC 11.3 H K/mm3 (4.5-10.0) RBC 4.37 M/mm3 (4.2-5.4) Hgb 11.9 L g/dL (12.0-15.0) Hct 35.5 L % (37.0-47.0) MCV 81.2 fl (80-100) MCH 27.2 pg (26-34) MCHC 33.5 g/dl (32-36) RDW 13.4 % (11.5-14.5) Plt Count 313 k/mm3 (150-375) MPV 10.9 H fl (7.4-10.4) Immature Gran % (Auto) 0.8 H % (0-0.5) Neut % (Auto) 69.3 % (45.5-73.1) Lymph % (Auto) 21.7 % (18.3-44.2) [place] % (Auto) 5.4 % (2.6-8.5) Eos % (Auto) 2.4 % (0-4.4) Baso % (Auto) 0.4 % (0.2-1.2) Lymph # (Auto) 2.44 K/mm3 (0.9-3.2) [place] # (Auto) 0.6 K/mm3 (0.1-0.6) Eos # (Auto) 0.3 K/mm3 (0-0.3) Baso # (Auto) 0.0 K/mm3 (0.0-0.1) Abs Immat Gran (auto) 0.09 H K/mm3 (0.00-0.031) Absolute Neuts (auto) 7.8 H K/mm3 (1.3-6.7) Absolute Nucleated RBC 0.000 K/mm3 (0.0-0.012) Nucleated RBC % 0.0 % (0.0-0.2) Sodium 132 L mmol/L (137-145) Potassium 3.8 mmol/L (3.4-5.0) Chloride 107 mmol/L (98-107) Carbon Dioxide 21 L mmol/L (22-30) Anion Gap 4 mmol/L (4-12) BUN 7 mg/dL (7-17) Creatinine 0.60 L mg/dL (0.7-1.0) Estim Creat Clear Calc Not Reportable Estimated GFR > 60 (59 - ) Glucose 108 mg/dL (65-110) Uric Acid 5.4 mg/dL (2.5-7.5) Calcium 8.9 mg/dL (8.4-10.2) Total Bilirubin 0.3 mg/dL (0.2-1.3) AST 20 U/L (14-36) ALT 14 U/L (6-35) Alkaline Phosphatase 139 H U/L (38-126) Total Protein 7.0 g/dL (6.3-8.2) Albumin 3.5 g/dL (3.5-5.1) RPR Non-reactive (NonReactive) HIV 1&2 Ab/P24 Ag 4thGn Negative (Negative) Blood Type O Positive Antibody Screen Negative Patient hx anesthesia problems: none Family hx anesthesia problems: none Results Review: All pre-operative results and documents have been reviewed as part of the pre- operative evaluation. [facility]LY [facility] Past Medical History Medical History Rectal itching Acrochordon Anemia Obese Asthma Surgical History Surgical History No pertinent past surgical history Family History Family History Father Malignant neoplasm of prostate Hypertension Depression Mother Asthma Depression Cerebrovascular accident Thyroid disorder Sibling Thyroid disorder Depression Grandparent Diabetes mellitus Depression Hypertension Social History Social History Smoking status: Never smoker Second hand tobacco smoke exposure: No Alcohol intake: never Drinks per week: 1 Alcohol use details: SOCIALLY Substance use: never Substance use type: does not use Do You Feel Safe in your Home?: Yes Lack of Transportation: No Lack of Food: Never True Current Housing: I Have Housing Concerned About Future Housing: No Difficulty Paying Gas/Electric Bills: No Difficulty Paying for Meds: No Currently Unemployed: No Education: Trade/Vocational Certificate Difficulty w/ Childcare or Family Care: No Living arrangements: with family Occupation/Education: occupation 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
[2024-09-30] MEDS: ONDANSETRON INJ 4 MG/2 ML VIAL IV PUSH ×2 (08:14→18:18)
--- NOTE | 2024-09-30 08:25 | PM.IMHP ---
H&P: HPI History of Present Illness Date/Time: 09/30/24 08:25 Chief Complaint: Here for induction of labor Narrative: 28 y/o at 38 weeks with gestational HTN and rising bp. First labor was induced because of preeclampsia at 37 weeks. She has no headache, no visual field change, no abdominal pain. We had offered induction of labor. Cervidil overnight, has been withdrawn. She is now comfortable with epidural. Review of Systems Review of Systems: All systems reviewed & are unremarkable except as noted in HPI and below PMFSH Past Medical History Medical History Rectal itching Acrochordon Anemia Obese Asthma Surgical History Surgical History No pertinent past surgical history Family History Family History Father Malignant neoplasm of prostate Hypertension Depression Mother Asthma Depression Cerebrovascular accident Thyroid disorder Sibling Thyroid disorder Depression Grandparent Diabetes mellitus Depression Hypertension Social History Social History Smoking status: Never smoker Second hand tobacco smoke exposure: No Alcohol intake: never Drinks per week: 1 Alcohol use details: SOCIALLY Substance use: never Substance use type: does not use Do You Feel Safe in your Home?: Yes Lack of Transportation: No Lack of Food: Never True Current Housing: I Have Housing Concerned About Future Housing: No Difficulty Paying Gas/Electric Bills: No Difficulty Paying for Meds: No Currently Unemployed: No Education: Trade/Vocational Certificate Difficulty w/ Childcare or Family Care: No Living arrangements: with family Occupation/Education: occupation 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 [employer] Gender identity (if verbalized by the patient): Female Spiritual care concerns: No Agree to blood products: Yes Meds Home Medications and Allergies Home Medications ?Medication ?Instructions ?Recorded ?Confirmed ?Type albuterol sulfate 90 mcg/actuation 1 puff inhalation PRN PRN Cough 10/21/20 09/25/24 History aerosol inhaler cetirizine 10 mg tablet 10 mg PO DAILY 10/21/20 09/29/24 History vit no.95-ferrous 1 tablet PO DAILY 09/25/24 09/29/24 History fumarate 28 mg-folic acid 800 mcg tablet () Allergies Allergy/AdvReac Type Severity Reaction Status Date / Time No Known Allergies Allergy Verified 09/29/24 17:50 Vital Signs Vital Signs - 24 hr 09/29/24 17:35 09/29/24 17:46 09/29/24 18:01 Temperature Pulse Rate 83 81 80 Blood Pressure 151/103 H 152/97 H 154/86 H Pulse Oximetry Oxygen Delivery 09/29/24 18:31 09/29/24 18:46 09/29/24 19:01 Temperature Pulse Rate 90 79 87 Blood Pressure 147/95 H 153/99 H 145/100 H Pulse Oximetry Oxygen Delivery 09/29/24 19:16 09/29/24 19:31 09/29/24 19:46 Temperature Pulse Rate 80 86 93 Blood Pressure 152/102 H 142/99 H 136/86 Pulse Oximetry Oxygen Delivery 09/29/24 20:00 09/29/24 20:01 09/29/24 20:16 Temperature 36.6 C Pulse Rate 81 86 Blood Pressure 152/87 H 140/88 Pulse Oximetry Oxygen Delivery 09/29/24 20:31 09/29/24 20:46 09/29/24 21:01 Temperature Pulse Rate 82 84 89 Blood Pressure 136/91 H 143/93 H 144/99 H Pulse Oximetry Oxygen Delivery 09/29/24 21:16 09/29/24 21:31 09/29/24 21:46 Temperature Pulse Rate 82 86 90 Blood Pressure 138/95 H 133/76 142/93 H Pulse Oximetry Oxygen Delivery 09/29/24 22:00 09/29/24 22:01 09/29/24 22:16 Temperature 36.7 C Pulse Rate 91 88 Blood Pressure 131/75 124/78 Pulse Oximetry Oxygen Delivery 09/29/24 22:31 09/29/24 22:46 09/29/24 22:52 Temperature Pulse Rate 91 83 Blood Pressure 137/96 H 124/75 Pulse Oximetry Oxygen Delivery Room Air 09/29/24 23:01 09/29/24 23:16 09/30/24 00:00 Temperature 36.6 C Pulse Rate 81 Blood Pressure 123/73 125/112 H Pulse Oximetry Oxygen Delivery 09/30/24 00:25 09/30/24 02:23 09/30/24 04:57 Temperature Pulse Rate 86 75 94 Blood Pressure 126/62 154/102 H 144/89 H Pulse Oximetry Oxygen Delivery 09/30/24 05:00 09/30/24 05:31 09/30/24 05:46 Temperature 36.7 C Pulse Rate 87 86 Blood Pressure 131/76 143/79 H Pulse Oximetry Oxygen Delivery 09/30/24 06:01 09/30/24 06:32 09/30/24 06:46 Temperature 36.2 C L Pulse Rate 85 84 Blood Pressure 137/91 H 122/73 Pulse Oximetry Oxygen Delivery 09/30/24 07:01 09/30/24 07:16 09/30/24 07:29 Temperature Pulse Rate 78 79 Blood Pressure 131/73 134/79 Pulse Oximetry 98 Oxygen Delivery 09/30/24 07:31 09/30/24 07:34 09/30/24 07:39 Temperature Pulse Rate 78 Blood Pressure 138/77 Pulse Oximetry 98 97 Oxygen Delivery 09/30/24 07:44 09/30/24 07:46 09/30/24 07:47 Temperature Pulse Rate 78 75 85 Blood Pressure 140/69 135/77 124/76 Pulse Oximetry 97 99 Oxygen Delivery 09/30/24 07:51 09/30/24 07:53 09/30/24 07:55 Temperature Pulse Rate 92 101 H 99 Blood Pressure 125/70 124/63 122/53 L Pulse Oximetry 97 Oxygen Delivery 09/30/24 07:56 09/30/24 07:58 09/30/24 08:01 Temperature Pulse Rate 93 93 Blood Pressure 125/69 122/70 Pulse Oximetry 97 95 Oxygen Delivery 09/30/24 08:04 09/30/24 08:06 09/30/24 08:07 Temperature Pulse Rate 90 90 Blood Pressure 120/68 113/64 Pulse Oximetry 97 Oxygen Delivery 09/30/24 08:10 09/30/24 08:11 09/30/24 08:13 Temperature Pulse Rate 100 Blood Pressure 97/61 L 114/87 Pulse Oximetry 98 Oxygen Delivery 09/30/24 08:15 09/30/24 08:16 09/30/24 08:17 Temperature Pulse Rate 84 90 Blood Pressure 131/76 138/78 Pulse Oximetry 100 Oxygen Delivery 09/30/24 08:19 09/30/24 08:22 09/30/24 08:23 Temperature Pulse Rate 102 H Blood Pressure 132/74 140/118 H Pulse Oximetry 96 96 Oxygen Delivery Exam Const: Orientation/consciousness: patient oriented x3 Other: Well-developed, well-nourished female in no acute distress. Neck: Thyroid: thyroid normal Lymphatic: no lymphadenopathy noted (in neck, axilla or inguinal nodes) Resp: Effort & Inspection: normal respiratory effort Auscultation: clear to auscultation bilaterally Cardio: Rate: regular rate Rhythm: regular rhythm Heart sounds: S1 normal heart sound present and S2 normal heart sound present GI: Other: ABD: Soft, nontender, nondistended, gravid. NST has been 140 reactive, now with some occasional variable decelerations TOCO: contractions every 3-4 min. No guarding or rebound tenderness. No hepatosplenomegaly. : General: Yes no CVA tenderness Other: Cervix 2/50/-2. AROM with clear fluid. IUPC placed. Back/Spine/Pelvis: Back: no CVA tenderness Skin: General skin exam: normal color and no rashes or lesions noted Neuro: General: patient oriented x3 Extrem: Other: Extremities: nontender with no edema Psych: Mental Status: mental status grossly normal Affect: normal affect H&P: Results Labs Labs: Short CBC 09/29/24 Range/Units 17:00 WBC 11.3 H (4.5-10.0) K/mm3 Hgb 11.9 L (12.0-15.0) g/dL Hct 35.5 L (37.0-47.0) % Plt Count 313 (150-375) k/mm3 BMP 09/29/24 17:00 Sodium 132 L Potassium 3.8 Chloride 107 Carbon Dioxide 21 L BUN 7 Creatinine 0.60 L Glucose 108 Calcium 8.9 Liver Function 09/29/24 Range/Units 17:00 Total Bilirubin 0.3 (0.2-1.3) mg/dL AST 20 (14-36) U/L ALT 14 (6-35) U/L Alkaline Phosphatase 139 H (38-126) U/L Albumin 3.5 (3.5-5.1) g/dL Assessment and Plan Assessment and plan (1) Term : Code(s): Z34.90 - Encounter for supervision of normal , unspecified, unspecified trimester Status: Acute Assessment and Plan: A: IUP at 38 weeks with gestational HTN, worsening bp control. P: Offered induction of labor. Reviewed risks, benefits, alternatives in detail, and she agreed. S/P Cervidil, now receiving oxytocin. Anticipate . (2) Gestational hypertension affecting second : Code(s): O13.9 - Gestational [-induced] hypertension without significant proteinuria, unspecified trimester Status: Acute
--- NOTE | 2024-09-30 19:25 | W.PM.OBCSD ---
OB - Delivery Note Procedure Delivery date: 09/30/24 Pre-op diagnosis: Non-Reassuring Status Post-op Diagnosis: Same Procedure Performed: Primary Surgeon: Nitin Cotto MD Anesthesia type: Epidural Description of Procedure/Findings: The patient was taken the operating room.? She was prepped and draped in dorsal supine position with a leftward tilt.? This was done after spinal anesthetic was applied.? A low-transverse skin incision was made and carried down till of the fascia with the knife.? The fascial incision was made with the knife.? The fascial incision was extended laterally with Jauregui scissors.? The fascia was tented upward superiorly and inferiorly the rectus muscles were dissected off bluntly.? The rectus muscles were the midline.? The preperitoneal fat and peritoneum were dissected open bluntly at the superior aspect of the rectus muscles.? The peritoneal incision was extended superior and inferior with good position of bladder.? The uterine incision was made with a scalpel down to the level of the amniotic cavity.? The amniotic cavity was entered bluntly.? The infant was delivered.? The cord was clamped and cut and the infant was handed off to waiting pediatric staff.? Cord bloods were obtained.? The placenta was removed manually.? The uterus was exteriorized.? The uterus was cleared of all clots, debris and membranes.? The uterus was closed in 0 Vicryl running lock fashion.? An imbricating over a was placed along the incision line as well.? The uterus was returned to the abdomen.? The gutters were cleared of all clots and debris.? The fascia was closed with 0 Vicryl running fashion.? The subcutaneous tissue was irrigated pinpoint bleeders were cauterized.? The skin was closed with subcuticular absorbable kathi.? The skin incision line was covered with glue.? The patient tolerated the procedure well.? She has taken recovery room in stable condition.? Sponge lap and needle counts were correct x2.?
--- NOTE | 2024-09-30 19:43 | PM.OBPNLAB ---
Pain Control Date/time seen: 09/30/24 19:43 Assessment and Plan Comments: She demonstrated slow progress in labor with oxytocin at 2 mU/min. BP have been in normal range and her pain was under good control with epidural. At 1800 the FHR tracing was reactive. At 1804 she began to have FHR decelerations. I was phoned at 1832 as she had a bradycardia. While I was en route to the hospital, nursing staff called another local OB, Dr. Cotto, and found he was closer to the hospital. Because the FHR bradycardia did not respond to resuscitative measures, she was taken to the OR for emergent . Please see Dr. Cotto's note for details. Time of delivery was 190.
[2024-09-30] MEDS: AZITHROMYCIN 500 MG/NS 250 ML 500 MG/250 ML BAG 250 MG IVPB (19:45)
[2024-09-30] MEDS: ceFAZolin 2 GM/D5W 50 ML 2 GM/50 ML BAG IVPB (19:45)
[2024-09-30] MEDS: HYDROmorphone HCL INJ (*CRX) 1 MG/ML SYR 0.5 MG IV PUSH ×3 (20:55→22:00)
[2024-09-30] MEDS: OXYTOCIN 30 UNITS/NS 500 ML 30 UNITS/500 ML BAG 125 UNITS IV CONT (22:01)
[2024-09-30] MEDS: LIDOCAINE 5% PATCH 1 PATCH (22:10)
[2024-09-30 22:51] LABS: Amphetamine Screen Urine Negative (Negative); Barbiturate Screen Urine Negative (Negative); Benzodiazepines Screen Urine Negative (Negative); Cannabinoid Screen Urine Negative (Negative); Cocaine Screen Urine Negative (Negative); Methadone Screen Urine Negative (Negative); Opiate Screen Urine Positive (Negative); Phencyclidine Screen Urine Negative (Negative)
[2024-09-30] MEDS: ACETAMINOPHEN 325 MG TABLET 650 MG PO (23:03)
[2024-09-30] MEDS: KETOROLAC 15 MG/ML VIAL (*BKC) IV PUSH (23:04)
[2024-09-30] MEDS: LORATADINE 10 MG TABLET PO (23:24)
[2024-10-01] VITALS (7 sets, daily range): BP systolic 107–151; BP diastolic 64–99; PULSE 75–96; RESP 14–18; TEMP 36.4–37.3; O2SAT 96–99
--- NOTE | 2024-10-01 00:30 | PC.NURSE ---
2220 09/30/2024 Patient's pericare done. Patient resting comfortably in bed. Patient take in bed to the nursery to visit baby in Level II nursery. Mother's significant other accompanied mother to visit baby. Mother visited with baby for approximately 20 minutes. Mother then taken to room 112 for assessment and rest. Mother oriented to room, visiting hours, plan of care for mother and baby, and safety and security measures. Parents state understanding.
[2024-10-01] MEDS: HYDROcodone/acetaminophen (*CRX) 5-325 MG TABLET 1 TAB PO (02:51)
[2024-10-01] MEDS: FUROSEMIDE INJ 40 MG/4 ML VIAL 10 MG IV PUSH (03:06)
[2024-10-01] MEDS: ACETAMINOPHEN 325 MG TABLET 650 MG PO ×3 (05:15→17:58)
[2024-10-01] MEDS: KETOROLAC 15 MG/ML VIAL (*BKC) IV PUSH ×3 (05:15→18:00)
[2024-10-01] MEDS: DEXTROSE 5%/0.45% SOD CHL 1,000 ML 125 ML IV CONT (05:51)
--- NOTE | 2024-10-01 06:29 | P.PNOB_ITS ---
OB - PN: Subj Subjective Date/time seen: 10/01/24 06:29 Patient comments: no complaints, pain well controlled and tolerating diet [place] baby status: doing well OB - PN: Obj Data Labs 09/29/24 17:00 09/29/24 17:00 Labs: Laboratory Results - last 24 hr 09/30/24 22:28 Urine Opiates Screen Positive A Urine Methadone Screen Negative Ur Barbiturates Screen Negative Ur Phencyclidine Scrn Negative Ur Amphetamine Screen Negative U Benzodiazepines Scrn Negative Urine Cocaine Screen Negative U Cannabinoids Screen Negative OB - PN A/P Assessment and Plan (1) Gestational hypertension affecting second : Code(s): O13.9 - Gestational [-induced] hypertension without significant proteinuria, unspecified trimester Status: Acute (2) Term : Code(s): Z34.90 - Encounter for supervision of normal , unspecified, unspecified trimester Status: Acute Plan routine care Time Spent With Patient Time: Total time spent is greater than 50% in coordination of care (as documented) at patient's floor/unit and/or counseling patient: Exam 2 Const: General: cooperative, healthy appearing and comfortable Nutritional Appearance: obese Orientation/consciousness: patient oriented x3 Other: Well-developed, well-nourished female in no acute distress. HENMT: Head: normal to inspection Neck: Thyroid: thyroid normal Lymphatic: no lymphadenopathy noted (in neck, axilla or inguinal nodes) Resp: Effort & Inspection: normal respiratory effort Auscultation: clear to auscultation bilaterally Cardio: Rate: regular rate Rhythm: regular rhythm Heart sounds: S1 normal heart sound present and S2 normal heart sound present GI: Inspection: normal to inspection and incision ( wound clean dry and intact) Other: ABD: Soft, nontender, nondistended, gravid. NST has been 140 reactive, now with some occasional variable decelerations TOCO: contractions every 3-4 min. No guarding or rebound tenderness. No hepatosplenomegaly. : General: Yes no CVA tenderness Other: Cervix 2/50/-2. AROM with clear fluid. IUPC placed. Back/Spine/Pelvis: Back: no CVA tenderness Skin: General skin exam: normal color and no rashes or lesions noted Neuro: General: patient oriented x3 Extrem: Other: Extremities: nontender with no edema Psych: Mental Status: mental status grossly normal Affect: normal affect
--- NOTE | 2024-10-01 06:33 | P.DS_ITS ---
DS: Admitting Diagnosis Discharge Date 10/03/2024 Admitting Diagnosis elevated blood pressure at term DS: Discharge Diagnosis Discharge Diagnosis (1) Gestational hypertension affecting second : Code(s): O13.9 - Gestational [-induced] hypertension without significant proteinuria, unspecified trimester Status: Acute (2) Term : Code(s): Z34.90 - Encounter for supervision of normal , unspecified, unspecified trimester Status: Acute DS: Summary Hospital Course Reason for hospitalization: patient was admitted for induction of labor the p.m. of 1221 24 she underwent emergent low-transverse section Hospital Course: patient's hospital course unremarkable she remained afebrile. She was up, voiding without difficulty, eating regular diet, ambulating, generally without complaints. Time Spent with Patient Time attestation: Total time spent providing and/or coordinating discharge services: Exam Const: General: cooperative, healthy appearing and comfortable Nutritional Appearance: overweight Orientation/consciousness: oriented to person, oriented to place and oriented to time Resp: Effort & Inspection: normal respiratory effort Cardio: Rate: regular rate Rhythm: regular rhythm Heart sounds: S1 normal heart sound present and S2 normal heart sound present GI: Inspection: normal to inspection and incision ( Wound is clean dry and intact) DS: Data Data Completed and Pending Labs on day of discharge: Labs from last 24 hours 09/30/24 22:28 Urine Opiates Screen Positive A Urine Methadone Screen Negative Ur Barbiturates Screen Negative Ur Phencyclidine Scrn Negative Ur Amphetamine Screen Negative U Benzodiazepines Scrn Negative Urine Cocaine Screen Negative U Cannabinoids Screen Negative Discharge Plan Discharge Attending physician on discharge: Imtiaz Lipscomb Discharging Clinician: Imtiaz Lipscomb Patient Disposition: Home, Self-Care Activity: may shower, no straining, may drive after 2 weeks and pelvic rest Diet: regular Wound Care Instructions: incision open to air Discharge Instructions: Call or return if temperature above 100.4? F, increased abdominal pain, increased vaginal bleeding or any new problems. Education: Mom and Baby Guide Given to: Mother Follow-Up: Call your delivering provider's office for an appointment to be seen in: 4 Weeks Mom and baby should come [facility] the [facility] for the follow-up appointment. Appointment Date/Time: October 04, 2024 at 10:00 am What to expect at your follow-up visit: Physical Assessment Call [phone] if you are unable to keep your appointment time. BREAST CARE: * Wear a snug supportive bra. * For engorgement discomfort: Breast Feeding: * Apply warm moist washcloths * Express milk as needed to relieve engorgement * Wear loose clothing * For sore nipples: * Identify correct latch-on * Apply warm moist washcloths before and after nursing * Air dry nipples after nursing * May apply Lansinoh cream to nipples ABDOMINAL INCISION: * Allow incision to air dry * Do NOT use lotions for powders on your incision * When showering, allow soap and water to run over the incision, but do not wash incision PERINEAL CARE: * Until bleeding stops, use your patrick bottle after urinating * Change your pad frequently throughout the day * No tub baths until seen by your physician - You may shower ACTIVITY: * Rest as much as possible. * Do not exercise or lift anything heavier than your baby (such as laundry or other children.) * Avoid stairs or driving as much as possible. * Do not put anything into the vagina. No douching, tampons, or sexual activity until seen by physician. NOTIFY PHYSICIAN IF YOU HAVE ANY QUESTIONS OR IF ANY OF THE FOLLOWING SYMPTOMS OCCUR: * If your incision becomes red, swollen, or more painful than what you have experienced in the hospital. * If your vaginal bleeding becomes foul smelling. * If your vaginal bleeding becomes more heavy than a period or if your bleeding changes from pink to bright red. However, you may pass an occasional walnut- sized clot once or twice for the first week . * If you experience a sharp, shooting pain in you calves. * If you discover a hard, reddened area on your breast or if you experience flu- like symptoms. DIET: * Eat regular, well-balanced meals. * Drink plenty of fluids daily. Patient Language: Icelandic Stand Alone Forms: General Discharge Information Follow-up/Referrals: Imtiaz Lipscomb MD [Physician] - 4 Weeks Discharge Medications: New hydrocodone-acetaminophen 5-300 mg tablet 1 tablet PO Q4H PRN (Reason: pain) Qty: 20 0RF ibuprofen 600 mg tablet 600 mg PO Q6H PRN (Reason: cramps) Qty: 30 0RF Continued cetirizine 10 mg tablet 10 mg PO DAILY albuterol sulfate 90 mcg/actuation HFA aerosol inhaler 1 puff INHALATION PRN PRN (Reason: Cough) PNV cmb#95-ferrous fumarate-FA [] 28 mg iron- 800 mcg tablet 1 tablet PO DAILY Date of admission: 09/29/24 16:46 Primary Care Provider: ReginaKaley Admitting Provider: Imtiaz Lipscomb Attending physician on admission: Imtiaz Lipscomb Condition: Stable
--- NOTE | 2024-10-01 09:00 | PC.NURSE ---
Patient set up with her own Spectra breast pump due to [baby in level 2]. Instructions given on cleaning, care, usage, that there should be no pain, pumping schedule for milk production, collection, and storage of human milk. Patient was assessed for correct placement, flange size (24mm), to pump for adequate milk production every 3 hours (8 times in 24 hours) 1-2 times at night. Baby is off CPAP and will try to breastfeed within the next hour, so we will pump after the attempt as needed.?Mother voiced understanding of the education shared along with mom/baby guide and the pump measurement, flange fit handout for additional resource information. Reported to the Primary RN.
[2024-10-01] MEDS: SIMETHICONE 80 MG TAB.CHEW PO ×3 (09:13→17:59)
[2024-10-01] MEDS: DOCUSATE SODIUM 100 MG CAPSULE PO ×2 (09:13→17:59)
[2024-10-01] MEDS: MULTIVIT/MIN/PREN/FOL AC/IRON TABLET 1 TAB PO (09:13)
[2024-10-01] MEDS: LORATADINE 10 MG TABLET PO (09:14)
[2024-10-01 09:26] LABS: Basophils Absolute Auto 0.1 K/mm3 (0.0-0.1); Basophils Percent Auto 0.4 % (0.2-1.2); Eosinophils Absolute Auto 0.3 K/mm3 (0-0.3); Eosinophils Percent Auto 1.6 % (0-4.4); Hematocrit 33.7 % (37.0-47.0); Hemoglobin 10.7 g/dL (12.0-15.0); Immature Granulocyte Absolute 0.08 K/mm3 (0.00-0.031); Immature Granulocyte Percent A 0.5 % (0-0.5); Lymphocytes Absolute Auto 1.53 K/mm3 (0.9-3.2); Lymphocytes Percent Auto 9.2 % (18.3-44.2); Mean Corpuscular HGB Conc 31.8 g/dl (32-36); Mean Corpuscular Volume 84.9 fl (80-100); Mean Platelet Volume 11.2 fl (7.4-10.4); Monocytes Percent Auto 5.9 % (2.6-8.5); Neutrophils Absolute Auto 13.7 K/mm3 (1.3-6.7); Neutrophils Percent Auto 82.4 % (45.5-73.1); Platelet Count Result 269 k/mm3 (150-375); Red Blood Count 3.97 M/mm3 (4.2-5.4); Red Cell Distribution Width 13.8 % (11.5-14.5); White Blood Count 16.6 K/mm3 (4.5-10.0)
--- NOTE | 2024-10-01 10:07 | WPDANLDNPN2 ---
Anes-Prog Note L&D-Neuraxial Date/Time: 10/01/24 10:07 Patient feedback: Patient satisfied with post-operative pain management.
--- NOTE | 2024-10-01 10:07 | WPDANLDPN2 ---
Anes-Prog Note L&D Date/Time: 10/01/24 10:07 Neuro status: Neuro function grossly intact. Cardiovascular status: normal Respiratory status: normal Airway patency: baseline Mental status: baseline Post-Op hydration status: normal Vital Signs: Last Vital Signs Temp 37.1 C 09/30/24 22:48 Pulse 84 10/01/24 03:15 Resp 16 10/01/24 03:15 BP 150/87 H 10/01/24 03:15 Pulse Ox 98 10/01/24 03:15 O2 Del Method Room Air 10/01/24 08:00 Pain score (VAS): 0 I/O: Intake & Output 09/30/24 10/01/24 10/01/24 23:59 07:59 15:59 Intake Total 1025.8 500 Output Total 755 650 Balance 270.8 -150 Post-procedural complaints: none Patient feedback: Patient satisfied with anesthetic care.
--- NOTE | 2024-10-01 10:28 | PC.NURSE ---
Observed mother latching to the [left] breast in [cradle] position. [was] able to maintain an appropriate latch. Mother [declines] nipple pain/discomfort [throughout feeding]. Encouraged mother to keep infant awake and nursing at the breast for 15 minutes. Mother taught to listen for infant swallowing during feedings. Stayed with mother throughout the feeding in the first floor nursery. Mom educated on colostrum and expectations in the immediate period. Mom would like to supplement with formula after this , baby's blood glucose was 53 and his D10 was not able to be turned down. Mother voiced understanding of the education shared, to call for assistance if the does not latch or if there is discomfort with . name/number on communication board. Reported to the primary nursery RN.
--- NOTE | 2024-10-01 11:40 | PC.NURSE ---
Patient called out regarding the color of her pumped colostrum. It is clary in appearance. Assured her this is normal and that it is safe for baby to eat. She is keeping the pumped milk at the bedside until the next feeding time. admission packet given and reviewed. Primary RN updated.
--- NOTE | 2024-10-01 13:00 | PC.NURSE ---
Called to first floor nursery to assist with . Baby was enticed with some pumped milk on his tongue and then he latched eagerly. He sucked lazily off and on for about five minutes with stimulation to suck, effectively nursing for 2-3 minutes. Mom then gave the 9ml of expressed milk and he took it from the bottle well. Mom agreed to offer some formula as well, but baby was very sleepy and wouldn't suck on the bottle nipple. Reported to nursery RN.
[2024-10-01] MEDS: LABETALOL HCL 100 MG TABLET 200 MG PO (14:42)
[2024-10-01] MEDS: HYDROcodone/acetaminophen (*CRX) 10-325 MG TABLET 1 TAB PO (14:44)
[2024-10-01] MEDS: ONDANSETRON INJ 4 MG/2 ML VIAL IV PUSH (14:45)
[2024-10-02] MEDS: ACETAMINOPHEN 325 MG TABLET 650 MG PO ×5 (00:07→18:34)
[2024-10-02] MEDS: IBUPROFEN 600 MG TABLET PO ×5 (00:07→18:34)
[2024-10-02 04:30] VITALS: BP 120/79; PULSE 87; RESP 16; TEMP 36.8; O2SAT 99
--- NOTE | 2024-10-02 06:44 | PM.OBPNVD ---
OB - PN: Subj Subjective Date/time seen: 10/02/24 06:44 Patient comments: no complaints, pain well controlled, tolerating diet and flatus present [place] baby status: doing well OB - PN: Obj Data Labs 10/01/24 09:05 09/29/24 17:00 Labs: Laboratory Results - last 24 hr 10/01/24 09:05 WBC 16.6 H RBC 3.97 L Hgb 10.7 L Hct 33.7 L MCV 84.9 MCH 27.0 MCHC 31.8 L RDW 13.8 Plt Count 269 MPV 11.2 H Immature Gran % (Auto) 0.5 Neut % (Auto) 82.4 H Lymph % (Auto) 9.2 L [place] % (Auto) 5.9 Eos % (Auto) 1.6 Baso % (Auto) 0.4 Lymph # (Auto) 1.53 [place] # (Auto) 1.0 H Eos # (Auto) 0.3 Baso # (Auto) 0.1 Abs Immat Gran (auto) 0.08 H Absolute Neuts (auto) 13.7 H Absolute Nucleated RBC 0.000 Nucleated RBC % 0.0 OB - PN A/P Assessment and Plan (1) Gestational hypertension affecting second : Code(s): O13.9 - Gestational [-induced] hypertension without significant proteinuria, unspecified trimester Status: Acute (2) Term : Code(s): Z34.90 - Encounter for supervision of normal , unspecified, unspecified trimester Status: Acute Plan Routine care Time Spent With Patient Time: Total time spent is greater than 50% in coordination of care (as documented) at patient's floor/unit and/or counseling patient: Review of Systems Review of Systems: All systems reviewed & are unremarkable except as noted in HPI and below Exam Const: General: cooperative, healthy appearing and comfortable Orientation/consciousness: oriented to person, oriented to place and oriented to time Resp: Effort & Inspection: normal respiratory effort Cardio: Rate: regular rate Rhythm: regular rhythm Heart sounds: S1 normal heart sound present and S2 normal heart sound present GI: Inspection: normal to inspection (Fundus firm below the umbilicus) and incision (Clean dry and intact)
[2024-10-02 08:05] VITALS: BP 132/79; PULSE 75; RESP 16; TEMP 36.8; O2SAT 99
[2024-10-02] MEDS: DOCUSATE SODIUM 100 MG CAPSULE PO ×2 (09:49→17:15)
[2024-10-02] MEDS: MULTIVIT/MIN/PREN/FOL AC/IRON TABLET 1 TAB PO (09:49)
[2024-10-02] MEDS: SIMETHICONE 80 MG TAB.CHEW PO ×3 (09:49→17:15)
[2024-10-02] MEDS: LORATADINE 10 MG TABLET PO (09:49)
[2024-10-02 11:49] VITALS: BP 131/79; PULSE 76; RESP 16; TEMP 36.8; O2SAT 100
[2024-10-02 17:10] VITALS: BP 124/78
[2024-10-02 20:05] VITALS: BP 132/80; PULSE 81; RESP 16; TEMP 37.1; O2SAT 99
[2024-10-03 00:25] VITALS: BP 128/78; PULSE 76; RESP 16; TEMP 37.2; O2SAT 100
[2024-10-03] MEDS: ACETAMINOPHEN 325 MG TABLET 650 MG PO ×2 (00:32→06:58)
[2024-10-03] MEDS: IBUPROFEN 600 MG TABLET PO ×2 (00:32→06:58)
[2024-10-03 04:13] VITALS: BP 126/83; PULSE 68; RESP 16; TEMP 36.9; O2SAT 100
[2024-10-03 05:23] VITALS: BP 124/86
[2024-10-03] MEDS: DOCUSATE SODIUM 100 MG CAPSULE PO (06:58)
[2024-10-03] MEDS: SIMETHICONE 80 MG TAB.CHEW PO (06:58)
[2024-10-03] MEDS: MULTIVIT/MIN/PREN/FOL AC/IRON TABLET 1 TAB PO (06:58)
[2024-10-03] MEDS: LORATADINE 10 MG TABLET PO (06:59)
[2024-10-03 07:00] VITALS: BP 117/67; PULSE 71; RESP 20; TEMP 36.6; O2SAT 97
[2024-10-03] MEDS: LIDOCAINE 5% PATCH 1 PATCH TRANSDERM (07:05)
--- NOTE | 2024-10-03 08:19 | P.PNOB_ITS ---
OB - PN: Subj Subjective Date/time seen: 10/03/24 08:20 Narrative: Pain OK. Tolerating diet. Would like to go home. OB - PN: Obj Data Labs 10/01/24 09:05 09/29/24 17:00 OB - PN A/P Plan day: 3 Comments: A: POD#3, doing well. P: Home to f/u 4 weeks. Exam 2 Narrative: AVSS ABD soft, nontender, fundus firm. Incision c/d/i. EXT nontender
--- NOTE | 2024-10-03 08:20 | PM.OBDSVD ---
DS: Admitting Diagnosis Discharge Date 10/03/24 Admitting Diagnosis IUP at 38 weeks Gestational hypertension DS: Discharge Diagnosis Discharge Diagnosis (1) delivery delivered: Code(s): O82 - Encounter for delivery without indication Status: Acute (2) Gestational hypertension affecting second : Code(s): O13.9 - Gestational [-induced] hypertension without significant proteinuria, unspecified trimester Status: Acute OB - DS: Summary OB Procedures : None OB Procedures Intrapartum: OB Procedures: : None Peripartum Data Procedures: Procedures Operation Date: 09/30/24 18:40 Actual Procedure Side Surgeon p Section Not Applicable Nitin Cotto MD Time Spent with Patient Time attestation: Total time spent providing and/or coordinating discharge services: DS: Data Data Completed and Pending Pending studies at discharge: Pending at discharge 10/01/24 06:47 Surgical [PTH] Routine Discharge Plan Discharge Attending physician on discharge: Imtiaz Lipscomb Discharging Clinician: Imtiaz Lipscomb Patient Disposition: Home, Self-Care Activity: may shower, no straining, may drive after 2 weeks and pelvic rest Diet: regular Wound Care Instructions: incision open to air Discharge Instructions: Call or return if temperature above 100.4? F, increased abdominal pain, increased vaginal bleeding or any new problems. Patient Language: Upper Sorbian Stand Alone Forms: General Discharge Information Follow-up/Referrals: Imtiaz Lipscomb MD [Physician] - 4 Weeks Discharge Medications: New hydrocodone-acetaminophen 5-300 mg tablet 1 tablet PO Q4H PRN (Reason: pain) Qty: 20 0RF ibuprofen 600 mg tablet 600 mg PO Q6H PRN (Reason: cramps) Qty: 30 0RF Continued cetirizine 10 mg tablet 10 mg PO DAILY albuterol sulfate 90 mcg/actuation HFA aerosol inhaler 1 puff INHALATION PRN PRN (Reason: Cough) PNV cmb#95-ferrous fumarate-FA [] 28 mg iron- 800 mcg tablet 1 tablet PO DAILY Date of admission: 09/29/24 16:46 Primary Care Provider: DanikaKaley Admitting Provider: Imtiaz Lipscomb Attending physician on admission: Imtiaz Lipscomb Condition: Stable
[2024-10-04 10:05] VITALS: BP 145/86; PULSE 89; RESP 18; TEMP 36.6; O2SAT 99
--- OUTSIDE RECORDS SUMMARY | 2024-10-06 23:21 | XMS_ITS | Encounter Summary ---
Author Organization [email or web address] Care Team Providers Care Dispatcher Service Name Role Phone Klaey Tapia Primary Care Provider [phone] Encounter Details Date Type Department Care Team (Latest Contact Info) Description 04/27/2021 Travel Social History Tobacco Use Types Packs/Day Years Used Date Smoking Tobacco: Never Smokeless Tobacco: Never Alcohol Use Standard Drinks/Week Comments Yes 5 (1 standard drink = 0.6 oz pur e alcohol) Comments No Sex and Gender Information Value Date Recorded Sex Assigned at Not on file Legal Sex Female 7:52 PM CDT Gender Identity Not on file Sexual Orientation Not on file COVID-19 Exposure Response Date Recorded In the last month, have you been in contact with someone who was confirmed or suspected to have Coronavirus / COVID-19? No / Unsure 04/27/2021 9:19 PM CDT documented as of this encounter Plan of Treatment Not on file documented as of this encounter Visit Diagnoses Not on filedocumented in this encounter Care Teams Dispatcher Service Relationship Specialty Start Date End Date Kaley Tapia PA PCP - General Family Medicine 06/18/16 documented as of this encounter
--- OUTSIDE RECORDS SUMMARY | 2024-10-06 23:21 | XMS_ITS | Clinical Summary ---
Author Organization [facility] Address [address] [place] [address] Phone Care Team Providers Care Music Arranger Name Role Phone Kaley Tapia Primary Care Provider [phone] Allergies No known active allergies Medications beclomethasone (QVAR) 80 MCG/ACT Aerosol Solution take 2 Puffs by inhalation daily. Active ALBUTEROL SULFATE INIndications:p rn take 1 Inhaler by inhalation every 6 hours. Indications: prn Active acetaminophen-c odeine (TYLENOL #3) 300-30 MG Tablet Take 1-2 Tabs by mouth every 6 hours as needed for Pain. 10 Tab 0 6 Active baclofen (LIORESAL) 10 MG Tablet Take 1 Tab by mouth nightly as needed. 9 Tab 0 6 Active ibuprofen (MOTRIN) 800 MG Tablet Take 1 Tab by mouth every 8 hours. 270 Tab 3 6 Active Social History Tobacco Use Types Packs/Day Years Used Date Smoking Tobacco: Never Smokeless Tobacco: Never Alcohol Use Standard Drinks/Week Comments Yes 5 (1 standard drink = 0.6 oz pur e alcohol) Comments No Sex and Gender Information Value Date Recorded Sex Assigned at Not on file Legal Sex Female 7:52 PM CDT Gender Identity Not on file Sexual Orientation Not on file Last Filed Vital Signs Vital Sign Reading Time Taken Comments Blood Pressure 125/79 04/28/2021 12:38 AM CDT Pulse 88 04/28/2021 12:38 AM CDT Temperature 36.2 ??C (97.1 ??F) 04/27/2021 9:20 PM CD T Respiratory Rate 16 04/28/2021 12:38 AM CDT Oxygen Saturation 98% 04/28/2021 12:38 AM CDT Inhaled Oxygen Concentration - - Weight 104.3 kg (230 lb) 04/27/2021 9:20 PM CDT Height 147.3 cm (4' 10 ) 04/27/2021 9:20 PM CDT Body Mass Index 48.07 04/27/2021 9:20 PM CDT Plan of Treatment Health Maintenance Due Date Last Done Comments Hepatitis C Virus (HCV) Screening 1993 Pap Smear 2014 Cervical Cancer Screening (CCS) 2023 HPV/Cotest 2023 Influenza Immunization (#1) 06/10/202406/2020, 07/20/2019, 05/26/2018 SARS-COV-2 Immunization ( season) 2024 09/07/2021, 10/21/2020, 09/30/2020 Respiratory Syncytial Virus (RSV) Immunization (Adult) (1 - 1-dose 75+ series) 2068 Hepatitis B Immunization Completed 994, 02/01/1994, 1993 DTaP/Tdap/Td Immunization Discontinued 2016, 03/22/1995, 07/09/1994, Additional history exists TdaP Immunization Completed 10/18/2016 Meningococcal Immunization (ACWY) Aged Out No longer eligible based on patient's age to complete this topic Pneumococcal Immunization Combined Aged Out No longer eligible based on patient's age to complete this topic Rotavirus Immunization Aged Out No lo nger eligible based on patient's age to complete this topic Insurance MEDICAID [employer] Care Teams Music Arranger Relationship Specialty Start Date End Date Kaley Tapia PA PCP - General Family Medicine 06/18/16
--- OUTSIDE RECORDS SUMMARY | 2024-10-06 23:21 | XMS_ITS | Referral Summary ---
Author Organization [facility] Address [address] [place] [address] Care Team Providers Care Dining Car Steward Name Role Phone Kaley Tapia Primary Care Pr ovider Allergies No known active allergies Medications albuterol (PROAIR RESPICLICK) 90 mcg/actuation inhaler Inhale 2 puffs every 4 (four) hours as needed for wheezing 12/21/2016 Active cetirizine (ZyrTEC) 10 mg capsule Take 10 mg by mouth daily 07/18/2018 Active HYDROcodone-james taminophen (NORCO) 5-325 mg per tabletIndicatio ns:Pain Take 1 tablet by mouth every 4 (four) hours as needed for pain 12 tablet 07/19/2022 Active ibuprofen (ADVIL,MOTRIN) 600 mg tabletIndicatio ns:Cramps Take 1 tablet (600 mg total) by mouth every 6 (six) hours as needed for pain 30 tablet 1 07/19/2022 Active Active Problems Problem Noted Date Diagnosed Date 36 weeks gestation of 07/16/2022 Immunizations Name Administration Dates Next Due Influenza, Unspecified 07/05/2022 Tdap 06/29/2022 Social History Tobacco Use Types Packs/Day Years Used Date Smoking Tobacco: Never Tobacco Cessation:Counseling Given: Not Answered AUDIT-C Answer Date Recorded Q1: How often do you have a drink containing alc ohol? Never 07/16/2022 Average Number of Drinks Not on file 022 Frequency of Binge Drinking Not on file 04/2022 Personal Safety Answer Date Recorded Have you ever been in or are you currently in a harmful physical or emotional relationship or is someone making you feel afraid or unsafe? 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 Gender Identity Not on file Sexual Orientation Not on file Last Filed Vital Signs Vital Sign Reading Time Taken Comments Blood Pressure 130/89 06/03/2023 3:54 PM CDT Pulse 97 06/03/2023 3:54 PM CDT Temperature 36 ??C (96.8 ??F) 06/03/2023 3:54 PM CDT Respiratory Rate 18 06/03/2023 3:54 PM CDT Oxygen Saturation 100% 06/03/2023 3:54 PM CDT Inhaled Oxygen Concentration - - Weight 109.3 kg (241 lb) 06/03/2023 3:54 PM CDT Height 147.3 cm (4' 10 ) 06/03/2023 3:54 PM CDT Body Mass Index 50.37 06/03/2023 3:54 PM CDT Plan of Treatment Not on file Insurance [facility] Advance Directives For more information, please contact: [phone] * Full Code (Latest Code Status on File) Date Activated Date Inactivated Comments 07/17/2022 10:59 PM 07/19/2022 8:51 PM * Full Code Date Activated Date Inactivated Comments 07/16/2022 7:26 PM 07/17/2022 10:59 PM Full CPR in case of cardiopulmonary arrest Healthcare Agents on File Name Relationship Healthcare Agent [facility] Communication Trever Bishop Significant Other Health Care Agent Care Teams Dining Car Steward Relationship Specialty Start Date End Date Kaley Tapia PA PCP - General 04/19/21
--- OUTSIDE RECORDS SUMMARY | 2024-10-06 23:21 | XMS_ITS | Encounter Summary ---
Author Organization [facility] Healthcare Address [address] [place] [address] Care Team Providers Care Rental Manager Name Role Phone Kaley Tapia Primary Care Pr ovider Reason for Visit * Reason Comments Vaginal Bleeding - Encounter Details Date Type Department Care Team (Late st Contact Info) Description 06/03/2023 3:49 PM CDT - 06/03/2023 8:30 PM CDT Emergency [facility] Emergency Department [address] [place] [address] Discharge Disposition: Left without being seen Social History Tobacco Use Types Packs/Day Years Used Date Smoking Tobacco: Never AUDIT-C Answer Date Recorded Q1: How often [...] on file 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 Gender Identity Not on file Sexual Orientation Not on file documented as of this encounter Last Filed Vital Signs Vital Sign Reading [...] Mass Index 50.37 06/03/2023 3:54 PM CDT documented in this encounter Medications at Time of Discharge albuterol (PROAIR RESPICLICK) 90 mcg/actuation inhaler Inhale 2 puffs every 4 (four) hours as needed for wheezing 12/21/2016 cetirizine (ZyrTEC) 10 mg capsule Take 10 mg by mouth daily 07/18/2018 HYDROcodone-aceta minophen (NORCO) 5-325 mg per tabletIndications :Pain Take 1 tablet by mouth every 4 (four) hours as needed for pain 12 tablet 07/19/2022 ibuprofen (ADVIL,MOTRIN) 600 mg tabletIndications :Cramps Take 1 tablet (600 mg total) by mouth every 6 (six) hours as needed for pain 30 tablet 1 07/19/2022 documented as of this encounter Discharge Disposition Disposition Code Departure Means Destination Left without being seen documented in this encounter ED Notes * Genny Bianchi RN - 06/03/2023 3:53 PM CDT Patient arrives for evaluation of vaginal bleeding and left lower abdominal pain x3 days. Patient states she is 5 weeks . documented in this encounter Plan of Treatment Not on file documented as of this encounter Procedures Procedure Name Priority Date/Time Associated Diagnosis Comments US OB UNDER 14 WEEKS W ENDOVAGINAL ED 06/03/2023 5:34 PM CDT DIFFERENTIAL AUTO STAT 06/03/2023 4:0 0 PM CDT CBC WITH AUTO DIFFERENTIAL STAT 06/03/2023 4:00 PM CDT HC BLD TYPING ABO STAT 06/03/2023 4:0 0 PM CDT HCG, BLOOD, QUANTITATIVE STAT 06/03/2023 4:00 PM CDT documented in this encounter Results * US Ob Under 14 Weeks W Endovaginal (06/03/2023 5:34 PM CDT) Anatomical Region Laterality Modality Abdomen N/A Ultrasound 06/03/2023 5:58 PM CDT Narrative 06/03/2023 6:05 PM CDT EXAM DESCRIPTION: ?? US OB UNDER 14 WEEKS W ENDOVAGINAL REASON FOR STUDY: ?? vaginal bleeding approx 5 weeks preg ?? Vaginal bleeding, LLQ dull pain x 3 days. Patient states blood was brownish in color. ?? Beta-hCG: ?83 TECHNIQUE: ?? Transabdominal and transvaginal ??images acquired of the pelvis. COMPARISON: ?? None FINDINGS: UTERUS: ??Uterus grossly normal in size. ??Cervix 3.4 cm. ??Endometrial stripe 1.4 cm. OTHER PELVIS: ??Ovaries appear normal. ??No free fluid. IMPRESSION: No acute abnormality or intrauterine/ectopic gestation identified. ?? Endometrial stripe 1.4 cm. ?? THIS IS AN ELECTRONICALLY VERIFIED FINAL REPORT 06/03/2023 6:05 PM - Electronically signed by ??Seth Grant M.D. AR: ROSALINDA D: ??06/03/2023 6:05 PM T: ??06/03/2023 6:05 PM Report ID: [id number] Reading Location: ??[id number] Procedure Note Seth Grant MD - 06/03/2023 EXAM DESCRIPTION: US OB UNDER 14 WEEKS W ENDOVAGINAL REASON FOR STUDY: vaginal bleeding approx 5 weeks preg Vaginal bleeding, LLQ dull pain x 3 days. Patient states blood wasbrownish in color. Beta-hC TECHNIQUE: Transabdominal and transvaginal images acquired of thepelvis. COMPARISON: None FINDINGS: UTERUS: Uterus grossly normal in size. Cervix 3.4 cm. Endometrialstripe 1.4 cm. OTHER PELVIS: Ovaries appear normal. No free fluid. IMPRESSION: No acute abnormality or intrauterine/ectopic gestation identified. Endometrial stripe 1.4 cm. THIS IS AN ELECTRONICALLY VERIFIED FINAL REPORT 06/03/2023 6:05 PM - Electronically signed by Seth Grant M.D. AR: ROSALINDA Report ID: [id number] Reading Location: [place] [address] [place] John Fang FISCAL MANAGER IMG OB US PROCEDURES Final Result * (ABNORMAL) Differential, auto (06/03/2023 4:00 PM CDT) Neutrophil abs 4.3 1.7 - 6.5 K/cumm [facility] ([facility]) Imm gran abs 0.1 0.0 - 0.1 K/cumm [facility]) Lymphocyte abs 3.0 0.8 - 3.3 K/cumm [facility]) Monocyte abs 0.5 0.2 - 0.8 K/cumm [facility]) Eosinophil abs 0.6(H) 0.0 - 0.5 K/cumm [facility]) Basophil abs 0.1 0.0 - 0.1 K/cumm [facility]) Neutrophil pct 50.0 % [facility] ([facility]) Comment: Interpretive Data Percent cell count reference ranges are not reported, since discordance with absolute values may lead to misinterpretation of CBC data. Current Interpretive Data was last revised on 2018. Imm gran pct 0.8 % [facility]) Comment: Interpretive Data Percent cell count reference ranges are not reported, since discordance with absolute values may lead to misinterpretation of CBC data. Current Interpretive Data was last revised on 2018. Lymphocyte pct 35.0 % [facility] Comment: Interpretive Data Percent cell count reference ranges are not reported, since discordance with absolute values may lead to misinterpretation of CBC data. Current Interpretive Data was last revised on 2018. Monocyte pct 6.1 % [facility] ([facility]) Comment: Interpretive Data Percent cell count reference ranges are not reported, since discordance with absolute values may lead to misinterpretation of CBC data. Current Interpretive Data was last revised on 2018. Eosinophil pct 7.2 % [facility] ([place]) Comment: Interpretive Data Percent cell count reference ranges are not reported, since discordance with absolute values may lead to misinterpretation of CBC data. Current Interpretive Data was last revised on 2018. Basophil pct 0.9 % [facility] ([place]) Comment: Interpretive Data Percent cell count reference ranges are not reported, since discordance with absolute values may lead to misinterpretation of CBC data. Current Interpretive Data was last revised on 2018. Blood 06/03/2023 4:0 0 PM CDT 06/03/2023 4:04 PM CDT Geeta Royal MD LAB BLOOD ORDERABLES Cheri l Result Performing Organization Address City/[facility]/ZIP Co de Phone Number [facility] ([place]) [address] [facility] [place] [address] * ABO/Rh (06/03/2023 4:00 PM CDT) ABO/Rh O Positive [facility] ([place]) Blood 06/03/2023 4:00 PM CDT 06/03/2023 4:04 PM CDT Geeta Royal MD LAB BLOOD BANK TEST ORDER DANIELLE Final Result Performing Organization Address City/[facility] Co de Phone Number [facility] ([place]) [address] [facility] [place] [address] * (ABNORMAL) hCG, blood, quantitative (06/03/2023 4:00 PM CDT) hCG, quant 83.0(H) 0.0 - 5.0 IUnits/L [facility] ([place]) Comment: Interpretive Data Non- Female premenopausal: < or = 5.0 IUnits/L Men: < 5.0 IUnits/L Weeks of Gestation ? Reference Interval ?? 3 to 6 ? 5.8-31,795 IUnits/L ?? 7 to 10 ? 3,697-186,977 IUnits/L ??12 to 15 ?27,832- 70,791 IUnits/L ??16 to 18 ? 9,040- 58,179 IUnits/L The Branden hCG Beta Quant assay procedure was used. Results from different manufacturers or methods may not be comparable. Serial testing should be performed using the same method. Current Interpretive Data was last revised on 2022. Blood 06/03/2023 4:00 PM CDT 06/03/2023 4:04 PM CDT Geeta Royal MD LAB BLOOD ORDERABLES Edit ed Result - Final [facility] ([place]) [address] [facility] [place] [address] * CBC with auto differential (06/03/2023 4:00 PM CDT) WBC 8.6 3.8 - 9.9 K/cumm [facility]) Hgb 13.2 11.9 - 15.5 g/dL [facility] Hct 39.7 35.6 - 45.5 % [facility] Plt 367 150 - 400 K/cumm [facility] MPV 9.6 9.1 - 12.3 fL [facility] RBC 4.57 3.90 - 5.20 M/cumm [facility] MCV 86.9 81.3 - 96.4 fL [facility] MCH 28.9 27.1 - 33.3 pg [facility] MCHC 33.2 32.3 - 35.7 g/dL [facility] RDW CV 12.1 11.1 - 14.9 % [facility] RDW SD 38.4 35.7 - 48.1 fL [facility]) NRBC abs 0.00 0.00 - 0.01 K/cumm [facility] ([facility]) Blood (Blood, Venous) 06/03/2023 4:00 PM CDT 06/03/2023 4:04 PM CDT Geeta Royal MD LAB BLOOD ORDERABLES Chrei reed Result [facility] ([facility]) 1 [facility] [place] [address] documented in this encounter Visit Diagnoses Not on filedocumented in this encounter Care Teams Rental Manager Relationship Specialty Start Date End Date Kaley Tapia PA PCP - General 04/19/21 documented as of this encounter
--- OUTSIDE RECORDS SUMMARY | 2024-10-06 23:21 | XMS_ITS | Clinical Summary ---
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 Gender Identity Not on file Sexual Orientation Not on file Obstetrics History Para Term AB IAB SAB Ectopic Multiple Livin g Live Births 1 1 1 0 1 1 Date Outcome GA Total Labor Labor/2nd/3rd Weight Sex Type Anes PTL Radha A1 A5 Name Clin 022 Term 37w 0d 4h 03m 2h 16m/1h 38m/0h 09m 2.671 kg (5 lb 14.2 oz) M Vag-S pont Epidu ral,L ocal N Livin g 9 9 CAMPB VENESSA,B OYHEA THER Hollie Kohli MD Complications:None Delivery Location:This [facility] Last Filed Vital Signs Vital Sign Reading [...] 06/03/2023 3:54 PM CDT Plan of Treatment Health Maintenance Due Date Last Done Comments Cervical Cancer Screening 1993 Depression Screening 1993 Hepatitis C Screening 1993 Pneumococcal vaccine <65 (1 of 2 - PCV) 1999 Varicella Vaccines (1 of 2 - 13+ 2-dose series) 2006 Regular Well Visit/Exam 18-64 2011 Covid-19 Vaccine ( season) 2024 06/21/2022, 09/07/2021, 06/22/2021, Additional history exists Influenza Vaccine (#1) 2024 , 07/14/2021, 07/14/2021, Additional history exists DTaP/Tdap/Td Vaccine (7 - Td or Tdap) 06/29/2032 06/29/2022, 10/18/2016, 03/22/1995, Additional history exists HPV Vaccines Aged Out No longer eligi ble based on patient's age to complete this topic Insurance [facility] Advance Directives For more information, please contact: [phone] * Full Code (Latest Code Status on File) Date Activated Date Inactivated Comments 07/17/2022 10:59 PM 07/19/2022 8:51 PM * Full Code Date Activated Date Inactivated Comments 07/16/2022 7:26 PM 07/17/2022 10:59 PM Full CPR in case of cardiopulmonary arrest Healthcare Agents on File Name Relationship Healthcare Agent [facility] p Communication Trever Bishop Significant Other Health Care Agent 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
--- OUTSIDE RECORDS SUMMARY | 2024-10-06 23:21 | XMS_ITS | Data Portability ---
Author Organization [facility] Address [address] [place] [address] Care Team Providers Care Pigs Feet Finisher Name Role Phone RAD HAWTHORNE Assistant [employer] Assessment Encounter Date Assessment Date Assessment LastModified by Organization Details LastModified Time 08/10/2022 08/10/2022 continuing BP meds for now back in 3 weeks for PP exam Not available 08/10/2022 12:08:10 08/31/2022 08/31/2022 normal PP visit after first delivery was induced at 37 weeks because of PIH baby had RSV recently, doing well now plans condoms for contraception as is still Not available 08/31/2022 11:35:34 06/20/2023 06/20/2023 Unclear where her BHCG is today, will get quant and arrange f/u as needed. Not available 06/20/2023 15:13:07 Plan of Treatment Reminders Order Date Submit Date Provider Last Modified By Organization Details Last Modified Time Details Appointments None recorded. Lab cytology report, thin prep, smear or scraping, cervical or vaginal 2021 022 [facility], [address], [address], [place], [address], 16:13:05 test, urine 2022 023 In-Office Order, Internal Use Only DO Not Attach Compendium DO Not Attach Compendium, Do Not Delete/merge, [id number] 15:11:59 HCG, intact + beta subunit, quant, serum or plasma 2022 023 [facility], [address], [address], [place], [address], 11:21:31 test, urine 2022 023 In-Office Order, Internal Use Only DO Not Attach Compendium DO Not Attach Compendium, Do Not Delete/merge, [id number] 11:07:07 Referral None recorded. Procedures None recorded. Surgeries None recorded. Imaging None recorded. Medication Orders None recorded. Patient TargetsNo targets recorded. Patient Instructions Encounter Date Encounter Id Patient Instructions Last Modified By Organization Details Last Modified Time 08/10/2022 [id number] edinburgh depression scale* Not available 08/10/2022 12:08:11 08/31/2022 [id number] edinburgh depression scale* Not available 08/31/2022 11:25:33 06/20/2023 [id number] miscarriage: car e instructions Not available 06/20/2023 15:11:59 03/16/2024 [id number] A healthy lifestyle: care instructions [email or web address] Not available 04/08/2024 19:17:31 Reason for Referral None Reported. Results Created Date Observation Date Name Description Value Unit Range Abnormal Flag Note LastModifiedBy Organization Detail LastModifiedTime 07/16/2007/16/2022 urina lysis , dipst ick Protein Trace Not Available In-Office Order Internal Use Only DO Not Attach Compendium DO Not Attach Compendium, Do Not Delete/merge, [id number] 07/15/2022 15:20:36 07/16/20 22 07/16/2022 urina lysis , dipst ick Glucose Negati ve Not Available In-Office Order Internal Use Only DO Not Attach Compendium DO Not Attach Compendium, Do Not Delete/merge, [id number] 07/15/2022 15:20:36 08/10/20 22 08/10/2022 edinb urgh postn atal depre ssion scale * Score 3 Not Available In-Office Order Internal Use Only DO Not Attach Compendium DO Not Attach Compendium, Do Not Delete/merge, [id number] 08/10/2022 11:49:48 08/31/20 22 09/08/2022 IGP, RFX APTIM A HPV ASCU diagnosis: Dany SMITH FOR INTRA EPITH ELIAL LESIO N OR RUBÉN ROSENBERG . Not Available [facility] ([facility]) [address] [place], [address], 09/08/2022 16:13:05 08/31/20 22 09/08/2022 IGP, RFX APTIM A HPV ASCU specimen adequacy: Dany middleton Satis facto ry for evalu ation . No endoc ervic al compo nent is ident ified . Not Available [facility] ([facility]) [address] [place], [address], 09/08/2022 16:13:05 08/31/20 22 09/08/2022 IGP, RFX APTIM A HPV ASCU clinician provided ICD10: Dany middleton Z39.2 Not Available [facility] ([facility]) [address] [place], [address], 09/08/2022 16:13:05 08/31/20 22 09/08/2022 IGP, RFX APTIM A HPV ASCU performed by: Mikaela Nichols (ASCP ) Not Available [facility] ([facility]) [address] [place], [address], 09/08/2022 16:13:05 08/31/20 22 09/08/2022 IGP, RFX APTIM A HPV ASCU . . Not Available [facility] ([facility]) [address] [place], [address], 09/08/2022 16:13:05 08/31/20 22 09/08/2022 IGP, RFX APTIM A HPV ASCU note: Commen t The Pap smear is a scree modesta test desig bella to aid in the detec tion of amaya ligna nt and malig nant condi tions of the uteri ne cervi x. It is not a diagn ostic proce dure and shoul d not be used as the sole means of detec ting cervi pepper cance r. Both false -posi tive and false -nega tive repor ts do occur . Not Available [facility] ([facility]) [address] [facility], [place], [address], 09/08/2022 16:13:05 08/31/20 22 09/08/2022 IGP, RFX APTIM A HPV ASCU test methodology: Commen t This liqui d based ThinP rep(R ) pap test was scree bella with the use of an image guide alyson santos. Not Available [facility] ([facility]) [address] [facility], [place], [address], 09/08/2022 16:13:05 08/31/20 22 09/08/2022 IGP, RFX APTIM A HPV ASCU . Commen t The HPV DNA refle x crite alfredo were not met with this speci men resul t there fore, no HPV testi ng was perfo rmed. Not Available [facility] ([facility]) [address] [facility], [place], [address], 09/08/2022 16:13:05 08/31/20 22 08/31/2022 edinb urgh postn atal depre ssion scale * Score 3 Not Available In-Office Order Internal Use Only DO Not Attach Compendium DO Not Attach Compendium, Do Not Delete/merge, [id number] 08/31/2022 11:19:21 06/20/20 23 06/21/2023 HCG,B ETA SUBUN IT, QNT HCG,beta subunit,qnt, serum 57 mIU/m L Femal e (Non- pregn ant) 0 - 5 (Post menop ausal ) 0 - 8 Femal e (Preg nant) Weeks of Gesta tion 3 6 - 71 4 10 - 750 5 217 - 7138 6 973 - 16475 7 2915 -5822 63 8 98641 -9594 71 9 94204 -1650 10 10 98228 -0709 77 12 57441 -4300 12 14 18375 - 74939 15 38892 - 96942 16 9781 - 35575 17 1084 - 50710 18 7768 - 14063 Branden ECLIA metho dolog y Not Available [facility] ([facility]) [address] [facility], [place], [address], 06/21/2023 11:21:31 06/20/20 23 06/20/2023 pregn yousif test, urine HCG positi ve Not Available In-Office Order Internal Use Only DO Not Attach Compendium DO Not Attach Compendium, Do Not Delete/merge, [id number] 06/20/2023 14:48:17 06/29/20 23 06/29/2023 pregn yousif test, urine HCG negati ve Not Available In-Office Order Internal Use Only DO Not Attach Compendium DO Not Attach Compendium, Do Not Delete/merge, [id number] 06/29/2023 17:02:55 06/06/20 23 US, obste tric, 1st trime ster No observ ation record ed. [email or web address] Not Available 2022 09:57:35 Result Notes None recorded. 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 Active 2023 Tiana More[place] [facility] 4 12:28:16 Leukocyt osis 745427421 Active 2023 T[place] [facility] 4 12:28:26 Gastroes ophageal reflux disease 891879815 Active 2023 T[place] [facility] 4 12:28:33 Attentio n deficit hyperact ivity disorder 496744390 Active 2023 Tiana [place] [facility] 4 12:28:57 Obesity 897165144 Active 2023 MAISHA Lanier Attn: Accounting ,[address] [place], [address] , [facility] - [facility] 4 19:17:28 Body mass index 40+ - severely obese 736170773 Active 2023 MAISHA Lanier Attn: Accounting ,[address] [place], [address] , [facility] - [facility] 4 19:17:29 Problem Notes None recorded. Procedures Surgical History Date Name Laterality Status Provider Name and Address Organization Details Recorded Time 08/31/20 Date of Last Pap Smear completed CHANDLER Frost [facility] 09/08/2022 16:38:49 colonoscopy completed CHANDLER Frost [facility] 01/20/2022 10:10:32 Imaging Results Imaging Date Name Status LastModified by Organiz ation Details LastModified Time 06/06/2023 US, obstetric, 1st trimester completed [email or web address] Information not available 06/06/2023 09:57:35 Procedure Notes None recorded. Medical Equipment None Reported. Allergies No known drug allergies Medications Name Sig Start Date Stop Date Status Note LastModified by Organization Details LastModified Time amoxicillin 500 mg capsule TAKE 2 CAPSULES BY MOUTH TWICE DAILY 06/20 completed Not Available Not Available Not Available labetalol 200 mg tablet TAKE 1 TABLET BY MOUTH TWICE DAILY 03/16 completed Not Available Not Available Not Available valacyclovi r 1 gram tablet active Not Available Not Available Not Available hydrocodone 5 mg-acetamin ophen 325 mg tablet TAKE 1 TO TWO TABLETS BY MOUTH EVERY 4 HOURS NEEDED FOR PAIN 03/16 completed Not Available Not Available Not Available ondansetron HCl 4 mg tablet TAKE 1 TO 2 TALETS BY MOUTH EVERY 6-8 HOURS FOR NAUSEA 03/16 completed Not Available Not Available Not Available prednisone 20 mg tablet TAKE 3 TABLETS BY MOUTH EVERY DAY FOR 2 DAYS THEN TAKE 2 TABLETS BY MOUTH EVERY DAY FOR 2 DAYS THEN TAKE 1 TABLET BY MOUTH EVERY DAY FOR 2 DAYS 06/11 completed Not Available Not Available Not Available valacyclovi r 500 mg tablet TAKE 1 TABLET BY MOUTH EVERY DAY 01/20 completed Not Available Not Available Not Available sulfamethox azole 800 mg-trimetho prim 160 mg tablet TAKE 1 TABLET BY MOUTH TWICE DAILY FOR 10 DAYS 01/20 completed Not Available Not Available Not Available cephalexin 500 mg capsule TAKE 1 CAPSULE BY MOUTH FOUR TIMES DAILY FOR 10 DAYS 06/20 completed Not Available Not Available Not Available pantoprazol e 40 mg tablet,sajan yed release TAKE 1 TABLET EVERY DAY BY ORAL ROUTE IN THE MORNING. active Not Available Not Available No t Available dextroamphe tamine-amph etamine 20 mg tablet TAKE 1 TABLET BY MOUTH TWICE DAILY active Not Available Not Available No t Available dextroamphe tamine-amph etamine 15 mg tablet TAKE 1 TABLET BY MOUTH TWICE DAILY 01/20 completed Not Available Not Available Not Available mupirocin 2 % topical ointment APPLY TOPICALLY TO RASH THREE TIMES DAILY FOR 7 DAYS 01/20 completed Not Available Not Available Not Available methylpredn isolone 4 mg tablets in a dose pack FOLLOW PACKAGE DIRECTION S 01/20 completed Not Available Not Available Not Available albuterol sulfate HFA 90 mcg/actuati on aerosol inhaler INHALE 2 PUFFS EVERY 4-6 HOURS BY INHALATIO N ROUTE NEEDED. active Not Available Not Available No t Available Zyrtec active Not Available Not Availa ble Not Available Vitals Date Recorded Body height Body mass index (BMI) Body weight Systolic blood pressure Diastolic blood pressure Provider Name and Address Organization Details Last Updated DateTime 08/10/2022 147.32 cm 52.2 kg/m2 527629.3 7 g 134 mm[Hg] 88 mm[Hg] Heidy Hernandez Radha [facility] 2 11:48:09 Date Recorded Body height Body mass index (BMI) Body weight Systolic blood pressure Diastolic blood pressure Provider Name and Address Organization Details Last Updated DateTime 08/31/2022 147.32 cm 52.9 kg/m2 808148.2 3 g 130 mm[Hg] 86 mm[Hg] Heidy Hernandez Radha [facility] 2 11:17:39 Date Recorded Body height Body mass index (BMI) Body weight Systolic blood pressure Diastolic blood pressure Provider Name and Address Organization Details Last Updated DateTime 06/20/2023 147.32 cm 50.4 kg/m2 288022.7 6 g 128 mm[Hg] 76 mm[Hg] Heidy Hernandez Radha [facility] 3 15:03:21 Date Recorded Body height Provider Name an d Address Organization Details Last Updated DateTime 06/29/2023 147.32 cm China Jiang RN [facility] 023 17:02:01 Date Recorded Body height Body mass index (BMI) Body weight Respiratory rate Oxygen saturation Oxygen saturation in Arterial blood by Pulse oximetry Heart rate Systolic blood pressure Diastolic blood pressure Provider Name and Address Organization Details Last Updated DateTime 4 147.32 cm 53.9 kg/m2 616045. 83 g 20 /min 99 % 99 % 96 /min 110 mm[Hg] 72 mm[Hg] Lauren Nelson MA [facility] 4 15:46:51 Social History Question Answer Notes LastModified by Organizat ion Details LastModified Time Tobacco Smoking Status Never Smoker Heidy Hernandez Radha [facility] 01/20/2022 10:10:07 Do You Have An Advance Directive? No Information not available 03/16/2024 What Is Your Level Of Alcohol Consumption? None Information not available 01/20/2022 Are You Blind Or Do You Have Difficulty Seeing? No Glasses Information not available 03/16/2024 What Is Your Level Of Caffeine Consumption? Occasional Information not available 03/16/2024 In The 14 Days Before Symptom Onset, Have You Had Close Contact With A Laboratory-confir med COVID-19 While That Case Was Ill? No Information not available 01/20/2022 In The 14 Days Before Symptom Onset, Have You Had Close Contact With A Person Who Is Under Investigation For COVID-19 While That Person Was Ill? No Information not available 01/20/2022 Have You Been To An Area Known To Be High Risk For COVID-19? No Information not available 01/20/2022 Are You Currently Employed? Yes [email or web address] Information not available 12/12/2023 Are You Deaf Or Do You Have Serious Difficulty Hearing? No Information not available 03/16/2024 What Type Of Diet Are You Following? REGULAR [email or web address] Information not available 12/12/2023 What Is Your Occupation? [employer] Information not available 03/16/2024 What Was The Date Of Your Most Recent Tobacco Screening? 03/16/2024 Information not available 03/16/2024 Do You Use Protection During Sex? No Information not available 01/20/2022 What Is Your Relationship Status? Single [email or web address] Information not available 12/12/2023 Do You Use Your Seat Belt Or Car Seat Routinely? Yes [email or web address] Information not available 12/12/2023 Are You Sexually Active? Yes Information not available 01/20/2022 Do You Have Smoke And Carbon Monoxide Detectors In Your Home? Yes [email or web address] Information not available 12/12/2023 Do You Feel Stressed (tense, Restless, Nervous, Or Anxious, Or Unable To Sleep At Night)? [id number] Information not available 03/16/2024 Do You Use Any Illicit Or Recreational Drugs? No Information not available 01/20/2022 Do You Use Sunscreen Routinely? Yes [email or web address] Information not available 12/12/2023 Has Tobacco Cessation Counseling Been Provided? Yes Information not available 03/16/2024 On What Date Was Tobacco Cessation Counseling Provided? 03/16/2024 Information not available 03/16/2024 Do You Or Have You Ever Used Any Other Forms Of Tobacco Or Nicotine? No Information not available 01/20/2022 Sex: Female Functional Status Question Answer Note LastModified by Organization D etails LastModified Time Are you able to care for yourself? Yes [email or web address] Information n ot available 12/12/2023 Mental Status None recorded. Family History Relationship Description Onset Age of this Age Resolved Age Notes LastModified by Organization Details LastModified Time Father Carcinoma of prostate [email or web address] Not available 2021 10:09:14 Father Hypertensive disorder [email or web address] Not available 2021 10:09:39 Father Hypercholest erolemia [email or web address] Not available 2021 10:09:50 Mother Cerebrovascu lar accident [email or web address] Not available 10:09:23 Medical History Condition Response Asthma Y Headaches Y Gynecological History Statement/Question Response Date of LMP 01/09/2024 Sexually Active? Y On BCP's at Conception? N Menses Monthly N STIs/STDs N HPV Vaccine N Date of Last Pap Smear 08/31/2022 Sexual Problems? N Current Control Method Age at Menarche 8 LMP Definite Obstetrics History GPAL:G 2 P 1 0 1 1 Type Value Full Term 1 Spontaneous 1 Living 1 Total 2 Immunizations Vaccine Type Date Status Note Provider Nam e and Address Organization Details Recorded Time DTP 4 completed Heidy Hernandez [place]MA [place] [facility] 06/11/2022 13:57:25 Hib, unspecified formulation 4 completed Heidy [place] [facility] 06/11/2022 13:57:25 COVID-19, mRNA, LNP-S, PF, 30 mcg/0.3 mL dose 1 completed Heidy [place] [facility] 06/11/2022 13:57:25 Hib, unspecified formulation 4 completed Heidy [place] [facility] 06/11/2022 13:57:25 OPV 4 completed Heidy [place] [facility] 06/11/2022 13:57:25 Tdap 7 completed Heidy [place] [facility] 06/11/2022 13:57:25 DTP 4 completed Heidy Mary, [place] [facility] 06/11/2022 13:57:25 OPV 5 completed Heidy Mary, [place] [facility] 06/11/2022 13:57:25 OPV 4 completed Heidy Mary, [place] [facility] 06/11/2022 13:57:25 Hep B, adolescent or pediatric 4 completed Heidy Mary, [place] [facility] 06/11/2022 13:57:25 Influenza, split virus, quadrivalent, preservative 9 completed Heidy Mary, [place] [facility] 06/11/2022 13:57:25 Hep B, adolescent or pediatric 4 completed Heidy Hernandez, [place] [facility] 06/11/2022 13:57:25 COVID-19, mRNA, LNP-S, PF, 30 mcg/0.3 mL dose 0 completed Heidy Hernandez, [place] [facility] 06/11/2022 13:57:25 Influenza, split virus, quadrivalent, PF 8 completed Heidy Hernandez, [place] [facility] 06/11/2022 13:57:25 MMR 5 completed Heidy Hernandez, [place] [facility] 06/11/2022 13:57:25 Hep B, adolescent or pediatric 4 completed Heidy Hernandez, [place] [facility] 06/11/2022 13:57:25 DTP-Hib 5 completed Heidy Mary, [place] [facility] 06/11/2022 13:57:25 Influenza, split virus, trivalent, preservative 1 completed Heidy Mary, [place] [facility] 06/11/2022 13:57:25 Influenza, split virus, quadrivalent, PF 0 completed Heidy Hernandez, [place] [facility] 06/11/2022 13:57:25 Hib, unspecified formulation 4 completed Heidy Hernandez, [place] [facility] 06/11/2022 13:57:25 COVID-19, mRNA, LNP-S, PF, 30 mcg/0.3 mL dose 1 completed Heidy Hernandez, [place] [facility] 06/11/2022 13:57:25 DTP 4 completed Heidy Valladaresce, [place] [facility] 06/11/2022 13:57:25 COVID-19, mRNA, LNP-S, bivalent, PF, 30 mcg/0.3 mL dose 2 completed Heidy Hernandez, [place] [facility] 06/29/2022 17:09:15 Influenza, split virus, quadrivalent, PF 2 completed Heidy [place] [facility] 07/16/2022 15:01:50 Tdap 2 completed [place]idy [place] [facility] 07/16/2022 15:01:51 Tdap 4 completed Lauren [place] [facility] 08/23/2024 15:20:43 Respiratory syncytial virus (RSV) vaccine, unspecified 4 completed Lauren [place] [facility] 08/23/2024 15:21:58 influenza, unspecified formulation 4 completed Lauren eNlson [place] [facility] 08/23/2024 15:22:53 Past Encounters Encounter ID Performer Location Encounter Start Date Encounter Closed Date Diagnosis/Indication Diagnosis SNOMED-CT Code Diagnosis ICD10 Code [id number] MD Seth Hickman 14 [facility] [place] [address] 01/20/2022 09:44:14 01/21/2022 06:04:56 Normal 80356941 Z34.90 [id number] MD Seth Hickman 14 OB [facility] [place] [address] 02/12/2022 14:10:53 02/15/2022 05:51:06 Normal 42734226 Z34.90 [id number] MD Seth Hickman [address] [place] [address] 03/12/2022 10:00:44 03/15/2022 08:05:46 Normal 33433811 Z34.90 [id number] MD Seth Hickman [address] [place] [address] 04/09/2022 13:40:28 04/13/2022 07:46:50 Normal 30057628 Z34.90 [id number] MD Seth Hickman [address] [place] [address] 04/30/2022 14:37:53 05/03/2022 15:11:46 Normal 33590938 Z34.90 [id number] MD Seth Hickman [address] [place] [address] 05/21/2022 10:02:07 05/24/2022 09:50:08 Normal 66917029 Z34.90 [id number] MD Seth Hickman 14 [address] [place] [address] 06/11/2022 13:45:03 06/15/2022 09:57:56 Normal 37333931 Z34.90 [id number] MD Seth Hickman [address] [place] [address] 06/29/2022 14:23:40 06/30/2022 08:25:41 Normal 43869867 Z34.90 Administra tion of diphtheria, pertussis, and tetanus vaccine 068297250 Z23 [id number] MD Seth Hickman [address] [place] [address] 07/16/2022 14:38:51 07/19/2022 08:39:54 Normal 63724215 Z34.90 Pre-eclampsia 191075205 O14.93 [id number] MD Seth Hickman [address] [place] [address] 07/23/2022 14:08:41 07/26/2022 09:17:11 Transient hypertension of - delivered 812079716 O13.9 [id number] Rad Hawthorne MD [place] [address] [place] [address] 07/28/2022 10:02:08 08/04/2022 12:33:41 Transient hypertension of - delivered 184511070 O13.9 [id number] Rad Hawthorne MD [place] [address] [place] [address] 08/10/2022 11:34:37 08/13/2022 13:29:36 care 576693638 Z39.2 Transient hypertension of - delivered 013737198 O13.9 [id number] Rad Hawthorne MD [place] [address] [place] [address] 08/31/2022 10:42:22 09/01/2022 16:29:05 care [id number] Z39.2 [id number] Rad Hawthorne MD [place] [address] OB [address] [place] [address] 06/20/2023 14:44:31 06/22/2023 11:36:51 Miscarriage [id number] O03.9 [id number] China Jiang RN [place] [address] [place] [address] 06/29/2023 16:52:40 06/30/2023 10:53:05 Miscarriage [id number] O03.9 [id number] MAISHA Lanier [facility] [place] [address] [place] [address] 03/16/2024 15:32:59 04/09/2024 16:08:15 Attention deficit hyperactivity disorder 013676216 F90.9 24187470 Z33.1 Body mass index 40+ - severely obese 659337441 Z68.43 Obesity 503116479 E66.8 Health Concerns Section Related Observation LastModified by Organization Detai ls LastModified Time None Recorded Concern Status LastModified by Organization Details LastModified Time None Recorded Advance Directives Directive N: Payers Encounter Date Sequence Insurance Name Policy Number Policy Montesinos Covered Member ID Montesinos Member ID Guarantor Name 08/10/2022 1 [facility] ON OR AFTER 04/09/21 (MEDICAID REPLACEMENT - HMO) Mckayla Orellana [id number] Mckayla Orellana 08/31/2022 1 [facility] ON OR AFTER 04/09/21 (MEDICAID REPLACEMENT - HMO) Mckayla Orellana [id number] Mckayla Orellana 06/20/2023 1 [facility] ON OR AFTER 04/09/21 (MEDICAID REPLACEMENT - HMO) Mckayla Orellana [id number] Mckayla Orellana 06/29/2023 1 [facility] ON OR AFTER 04/09/21 (MEDICAID REPLACEMENT - HMO) Mckayla Orellana [id number] Mckayla Orellana 03/16/2024 1 [facility] [id number] Mckayla Orellana [id number] Mckayla Orellana 03/16/2024 2 [facility] (MEDICARE REPLACEMENT/A DVANTAGE - HMO) Mckayla Orellana [id number] Mckayla Orellana Notes Date Note Type Note Provider Name and Address Organization Details Recorded Time 08/10/2022 text/html BP looks goodpatient feeling good Rad Hawthorne MD Attn: Accounting[address] [place], [address], [facility] 08/10/2022 12:08:25 06/20/2023 text/html SAB bleeding sti ll ongoing test faintly + today Of note on 06/03 her BHCG was 83 Rad Hawthorne MD Attn: Accounting[address] [place], [address], [facility] 06/20/2023 15:13:19 03/16/2024 text/html ADHD hx. pt is n ow off medication after recently finding out she is . 10 weeks gestation. MAISHA Lanier Attn: Accounting[address] [place], [address], [facility] 04/08/2024 19:17:43 OBGyn Episode Ob Episode Information Episode Created Date Number of Fetuses Patient Bloodtype Patient rh Status Prepregnancy Weight lbs Domestic Partner Domestic Partner Phone Father Name Security Compliance Specialist Status 01/21/20 22 1 O Positive CLOSED Fetus Data First Name Last Name Admitted to NICU Weight (g) Sex Living Outcome Pediatric Complications Fetus ID Race Codes Race Delivery Type false 2664.85 3 M true Full Term [id number] 2106-3 White Vaginal Connor Calculation CONNOR Calculation Method Initial Connor Date Initial Exam Date Initial Exam Provider Initial Ultrasound Date Last Menstrual Period Date Ultra Sound Weeks Gestation Conception by IVF Embryo Age at Transfer Date of Transfer 08/07/2001/21/20 20 [email or web address]/05/2022 10/31/2021 19 Eighteen To Twenty Week Connor Update Ultra Sound Date Fundal Height At Umbil Quickening Date Ultra Sound Latest Weeks Gestation Final Connor Confirmed By Final Connor Confirmed Date Final Connor Date Ultra Sound Latest Days Gestation 0 04/09/2022 08/07/20 22 0 Pre- Flowsheet Flowsheet Date 01/20/2022 Murillo Score Blood Edema Fundus Height Fundus Units Glucose Ketones Leukocytes Nitrite Labor Signs Protein Cervic Dilation Cervic Effacement Cervic Station 11 wks 0cm 0% -4 Type Weight in lbs Pre/Post Dialysis Refused With clothes 241.557768587588 BP Diastolic BP Location Tested BP Systolic BP Type 70 114 sitting Fetus Heart Rate Present A 172 Present Fetus Movement Comments doing well with first pregna ncy. Good FHTsno n/vOtherwise healthy, non-smoker Flowsheet Date 02/12/2022 Murillo Score Blood Edema Fundus Height Fundus Units Glucose Ketones Leukocytes Nitrite Labor Signs Protein Cervic Dilation Cervic Effacement Cervic Station none 14 wks none neg Type Weight in lbs Pre/Post Dialysis Refused With clothes 244.415383764394 BP Diastolic BP Location Tested BP Systolic BP Type 76 118 sitting Fetus Heart Rate Present A 152 Present Fetus Movement Comments Doing well, no complaintsall labs looked good, plan US in 3 weeks before next apt. Flowsheet Date 03/12/2022 Murillo Score Blood Edema Fundus Height Fundus Units Glucose Ketones Leukocytes Nitrite Labor Signs Protein Cervic Dilation Cervic Effacement Cervic Station 18 wks none neg Type Weight in lbs Pre/Post Dialysis Refused With clothes 251.56095781675 BP Diastolic BP Location Tested BP Systolic BP Type 76 112 sitting Fetus Heart Rate Present A 155 Present Fetus Movement A Yes Comments HAd US done, no report avail able as of yet. Per pt. she was 2 weeks further along Boy per US as wellwill await official report.feeling good, no issues Flowsheet Date 04/09/2022 Murillo Score Blood Edema Fundus Height Fundus Units Glucose Ketones Leukocytes Nitrite Labor Signs Protein Cervic Dilation Cervic Effacement Cervic Station 22 wks Type Weight in lbs Pre/Post Dialysis Refused With clothes 255.982091153060 BP Diastolic BP Location Tested BP Systolic BP Type 68 118 sitting Fetus Heart Rate Present A 154 Present Fetus Movement A Yes Comments doing well, no issuesUS actu ally confirmed EDC of 08/07 ( was off 8 days)back in 3 weeks Flowsheet Date 04/30/2022 Murillo Score Blood Edema Fundus Height Fundus Units Glucose Ketones Leukocytes Nitrite Labor Signs Protein Cervic Dilation Cervic Effacement Cervic Station none 25 cm Type Weight in lbs Pre/Post Dialysis Refused With clothes 261.53720519178 BP Diastolic BP Location Tested BP Systolic BP Type 70 114 sitting Fetus Heart Rate Present A 145 Present Fetus Movement A Yes Comments doing wellsugar test before next visitgood spirits Flowsheet Date 05/21/2022 Murillo Score Blood Edema Fundus Height Fundus Units Glucose Ketones Leukocytes Nitrite Labor Signs Protein Cervic Dilation Cervic Effacement Cervic Station none 29 cm none neg Type Weight in lbs Pre/Post Dialysis Refused With clothes 261.331856019146 BP Diastolic BP Location Tested BP Systolic BP Type 72 118 sitting Fetus Heart Rate Present A 143 Present Fetus Movement A Yes Comments doing well, no new issuesgoo d spiritspassed sugartest Flowsheet Date 06/11/2022 Murillo Score Blood Edema Fundus Height Fundus Units Glucose Ketones Leukocytes Nitrite Labor Signs Protein Cervic Dilation Cervic Effacement Cervic Station none 32 cm none neg Type Weight in lbs Pre/Post Dialysis Refused With clothes 268.178799537093 BP Diastolic BP Location Tested BP Systolic BP Type 70 124 sitting Fetus Heart Rate Present A 160 Present Fetus Movement A Yes Comments doing well, no complaints.ac tive baby, plan GBS next visit Flowsheet Date 06/29/2022 Murillo Score Blood Edema Fundus Height Fundus Units Glucose Ketones Leukocytes Nitrite Labor Signs Protein Cervic Dilation Cervic Effacement Cervic Station none 34 cm none neg Type Weight in lbs Pre/Post Dialysis Refused With clothes [phone] BP Diastolic BP Location Tested BP Systolic BP Type 88 122 sitting Fetus Heart Rate Present A 145 Present Fetus Movement A Yes Comments doing well. No new issues. G BS done todaydiscussed pre-eclampsia, PIH, short stature, c/s risks, etclabor precautions Flowsheet Date 07/16/2022 Murillo Score Blood Edema Fundus Height Fundus Units Glucose Ketones Leukocytes Nitrite Labor Signs Protein Cervic Dilation Cervic Effacement Cervic Station trace 35 cm none trace 0cm 70% -3 Type Weight in lbs Pre/Post Dialysis Refused With clothes 276.825446095057 BP Diastolic BP Location Tested BP Systolic BP Type 100 156 sitting Fetus Heart Rate Present A 144 Present Fetus Movement A Yes Comments Patient with BILLINGSLEY and visual c hanges along with elevated BPs.Had been seen by Dr Persaud earlier in the week on L&D and was found to have an elevated P/C ratio.Will plan induction for pre-eclampsia tonight.risks/benefits discussed, anxious to proceed. Flowsheet Date 07/23/2022 Murillo Score Blood Edema Fundus Height Fundus Units Glucose Ketones Leukocytes Nitrite Labor Signs Protein Cervic Dilation Cervic Effacement Cervic Station Type Weight in lbs Pre/Post Dialysis Refused With clothes 253.512831030651 BP Diastolic BP Location Tested BP Systolic BP Type 96 148 sitting Fetus Heart Rate Present Fetus Movement Comments Menstrual History Last Menstrual Date Menses Monthly On Bcp Conception Prior Menses Frequency Hcg Plus Date Menarche Onset Age 0110/31/2021 true false 10 Genetic Screening And Infection History Question Response Note Patient's Age Will Be 35 Years Or Older At Estim ated Date of Delivery false Thalassemia (Greek, Togolese, Mediterranean, Or Background): MCV < 80 false Neural Tube Defect (Meningomyelocele, Spina Bifi da, Or Anencephaly) false Congenital Heart Defect false Down Syndrome false Lavon-Sachs (eg, Presybeterian, Cajun, Macedonian-[place]) f alse Jony Disease false Sickle Cell Disease Or Trait () false Hemophilia Or Other Blood Disorders false Muscular Dystrophy false Cystic Fibrosis false Geovanna's Chorea false Mental Retardation/Autism false If Yes, Was Person Tested For Fragile X? false Other Inherited Genetic Or Chromosomal Disorder false Maternal Metabolic Disorder (eg, Type 1 Diabetes , PKU) false Patient Or Baby's Father Had A Child With Defects Not Listed Above false Recurrent Loss, Or A Stillbirth false Medications (including Suppl ements, Vitamins, Herbs, OTC Drugs), Illicit/Recreational Drugs, Alcohol false If Yes, Agent(s) And Strength/Dosage false Any Other Genetic History false Live With Someone With TB Or Exposed To TB false Patient Or Partner Has History Of Genital Herpes false Rash Or Viral Illness Since Last Menstrual Perio d false History Of STD, Gonorrhea, Chlamydia, HPV, Syphi lis false Other Infection History false History of HIV false History of Hepatitis false Prior GBS-infected child false Delivery Information Delivery Date Delivery Type Labor Anesthesia Weeks Gestation Incision Type Labor Labor Length Hrs Delivered By Post Complications Tubal Sterilization Discharge Date Comments 2 Induce d Regional-Ep idural 37 false Rad [place] MD false [facility] for pre-eclam psia Discharge Information Feeding Method Contraceptive Method Maternal HG B and HCT Levels Combination
--- OUTSIDE RECORDS SUMMARY | 2024-10-06 23:21 | XMS_ITS | Data Portability ---
Author Organization [place] - [facility], Main Office Address [address] [place] [address] Assessment No assessment recorded. Plan of Treatment Reminders Order Date Submit Date Provider Last Modified By Organization Details Last Modified Time Details Appointments None recorded. Lab lipid panel, serum 2022 023 [email or web address], [address], [place], [address], 3 16:15:21 HbA1c (hemoglobin A1c), blood 2022 023 [email or web address], [address], [place], [address], 3 16:15:21 TSH + free T4, serum 2022 023 [email or web address] [facility], [address], [place], [address], 3 16:15:20 vitamin B12 + folate, serum or blood 2022 023 [email or web address] 146 [facility], [address], [place], [address], 3 16:15:20 iron + TIBC + ferritin, serum 2022 023 [email or web address] [facility], [address], [place], [address], 3 16:15:20 CMP, serum or plasma 2022 023 [facility], [address], [place], [address], 3 16:15:20 CBC w/ auto diff 2022 023 BEATRICE [facility], [address], [place], [address], 3 09:29:48 vitamin D, 25-hydroxy, total, serum 2022 023 [facility] 146 [facility], [address], [place], [address], 3 16:15:21 Referral None recorded. Procedures upper endoscopy procedure (EGD) (PROC) 2022 023 BEATRICE Valles MD, [address], [place], [address], 3 14:10:56 Surgeries None recorded. Imaging RF, upper gastrointes tinal tract, w/ contrast PO 2022 023 [facility] (Imaging), [address], [place], [address], 3 15:10:48 US, abdomen, complete 2022 023 [email or web address] [facility] (Imaging), [address], [place], [address], 3 15:07:55 Medication Orders pantoprazol e 40 mg tablet,sajan yed release 2022 023 [id number], [address], [place], [address], 3 20:50:04 Patient TargetsNo targets recorded. Patient InstructionsNo instructions recorded. Reason for Referral None Reported. Results Created Date Observation Date Name Description Value Unit Range Abnormal Flag Note LastModifiedBy Organization Detail LastModifiedTime 11/20/19 22 11/15/2021 XR, forea rm No observ ation record ed. [id number] [facility] [address], [place], [address], 12/08/2022 18:04:48 01/09/20 22 10/23/2021 colon oscop y proce dure (PROC ) No observ ation record ed. [id number] Not Available 12/08/2022 18:04:48 09/12/20 23 09/12/2023 upper endos copy proce dure (EGD) (PROC ) No observ ation record ed. [email or web address] Mike Valles MD [address], [place], [address], 09/12/2023 17:31:44 09/16/20 23 09/16/2023 RF, upper gastr ointe rose l tract , w/ contr ast PO No observ ation record ed. [email or web address] [facility] (Imaging) [address], [place], [address], 10/27/2023 10:21:46 Result Notes None recorded. 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 Active 2021 CHANDLER Lawson, [employer] [facility] 3 12:28:30 Fever 873216647 Active Not Available [facility] 3 18:03:38 Body mass index 40+ - severely obese 618119331 Active Not Available [facility] 3 18:03:38 Vomiting 270288500 Active Not Available [employer] 3 18:03:38 Fatigue 97816101 Active 2022 MAISHA Lanier [address], [address], [place], [address] , [facility] 3 12:51:05 Leukocytosis 678219008 Active 2022 MAISHA Lanier [address], [address], [place], [address] , [facility] 3 22:44:32 Liver enzymes level above reference range 061193304 Active 2022 MAISHA Lanier [address], [address], [place], [address] , [facility] 3 22:44:52 Asthma 635889197 Active 2022 CHANDLER Lawson null, [place] - [facility] 3 11:05:17 Herpes labialis 7494804 Active 2022 MAISHA Lanier [address], [address], [place], [address] , [facility] 3 13:22:30 Burning epigastric pain 27879900 Active 2022 MAISHA Lanier [address], [address], [place], [address] , [facility] 3 15:10:37 Acid reflux 963300456 Active 2022 MAISHA Lanier [address], [place], [address] , [facility] 3 15:10:40 Nausea and vomiting 43415333 Active 2022 MAISHA Lanier [address], [place], [address] , [facility] 3 15:10:45 Problem Notes None recorded. Procedures Surgical History Date Name Laterality Status Provider Name and Address Organization Details Recorded Time 08/31/2022 Date of Last Pap Smear completed Not Available [facility] 12/08/2022 18:02:46 other completed Not Available [facility] 10/2022 18:02:47 Imaging Results Imaging Date Name Status LastModified by Organization Details LastModified Time 10/23/2021 colonoscopy procedure (PROC) completed [id number] Information not available 12/08/2022 18:04:48 11/15/2021 XR, forearm completed [id number] [facility] [address], [place], [address], 12/08/2022 18:04:48 09/12/2023 upper endoscopy procedure (EGD) (PROC) completed [place] [address] Mike Valles MD [address], [place], [address], 09/12/2023 17:31:44 09/16/2023 RF, upper gastrointestinal tract, w/ contrast PO completed [address] (Imaging) [address], [place], [address], 10/27/2023 10:21:46 Procedure Notes None recorded. Medical Equipment None Reported. Allergies No known drug allergies Medications Name Sig Start Date Stop Date Status Note LastModified by Organization Details LastModified Time cyclobenzap rine 10 mg tablet Take 1 tablet 3 times a day by oral route as needed. active Not Available Not Available No t Available amoxicillin 500 mg capsule TAKE 2 CAPSULES BY MOUTH TWICE DAILY 03/21 completed Not Available Not Available Not Available fluconazole 100 mg tablet TK 1 T PO D FOR 7 DAYS 11/13 completed Not Available Not Available Not Available Qvar 80 mcg/actuati on Metered Aerosol oral inhaler Inhale 1 puff twice a day by inhalatio n route. 11/14 completed Not Available Not Available Not Available prednisone 10 mg tablet 12/21 completed Not Available Not Available Not Available labetalol 200 mg tablet TAKE 1 TABLET BY MOUTH TWICE DAILY 09/21 completed Not Available Not Available Not Available cetirizine 10 mg tablet TK 1 T PO D active Not Available Not Available No t Available ibuprofen 800 mg tablet 12/21 completed Not Available Not Available Not Available fluconazole 150 mg tablet Take 1 tablet every day by oral route as needed for 1 day. active Not Available Not Available No t Available valacyclovi r 1 gram tablet TAKE 2 TABLETS BY MOUTH EVERY 12 HOURS NEEDED FOR 1 DAY active Not Available Not Available No t Available hydrocodone 5 mg-acetamin ophen 325 mg tablet TAKE 1 TO TWO TABLETS BY MOUTH EVERY 4 HOURS NEEDED FOR PAIN active Not Available Not Available No t Available ondansetron HCl 4 mg tablet TAKE 1 TO 2 TALETS BY MOUTH EVERY 6-8 HOURS FOR NAUSEA active Not Available Not Available No t Available prednisone 20 mg tablet TAKE 3 TABLETS BY MOUTH EVERY DAY FOR 2 DAYS THEN TAKE 2 TABLETS BY MOUTH EVERY DAY FOR 2 DAYS THEN TAKE 1 TABLET BY MOUTH EVERY DAY FOR 2 DAYS 09/21 completed Not Available Not Available Not Available clindamycin HCl 150 mg capsule 12/21 completed Not Available Not Available Not Available acetaminoph en 300 mg-codeine 30 mg tablet 12/21 completed Not Available Not Available Not Available valacyclovi r 500 mg tablet TAKE 1 TABLET BY MOUTH EVERY DAY 09/07 completed Not Available Not Available Not Available sulfamethox azole 800 mg-trimetho prim 160 mg tablet TAKE 1 TABLET BY MOUTH TWICE DAILY FOR 10 DAYS 09/07 completed Not Available Not Available Not Available amoxicillin 500 mg tablet 05/08 completed Not Available Not Available Not Available amoxicillin 875 mg tablet TK 1 T PO BID FOR 14 DAYS active Not Available Not Available No t Available Denavir 1 % topical cream 11/13 completed Not Available Not Available Not Available baclofen 10 mg tablet 12/21 completed Not Available Not Available Not Available Focalin 5 mg tablet Take 1 tablet twice a day by oral route as directed. 08/16 completed Not Available Not Available Not Available cephalexin 500 mg capsule TAKE 1 CAPSULE BY MOUTH FOUR TIMES DAILY FOR 10 DAYS 03/21 completed Not Available Not Available Not Available pantoprazol e 40 mg tablet,sajan yed release Take 1 tablet every day by oral route in the morning. 2022 active Not Available Not Available Not Avai lable dextroamphe tamine-amph etamine 20 mg tablet Take 1 tablet twice a day by oral route. active Not Available Not Available No t Available dextroamphe tamine-amph etamine 15 mg tablet TAKE 1 TABLET BY MOUTH TWICE DAILY active Not Available Not Available No t Available diclofenac sodium 75 mg tablet,sajan yed release Take 1 tablet twice a day by oral route with meals. active Not Available Not Available No t Available acetaminoph en 300 mg-codeine 60 mg tablet 12/21 completed Not Available Not Available Not Available mupirocin 2 % topical ointment APPLY TOPICALLY TO RASH THREE TIMES DAILY FOR 7 DAYS 09/07 completed Not Available Not Available Not Available ibuprofen 600 mg tablet Take 1 tablet every 6 hours by oral route for 5 days. 12/21 completed Not Available Not Available Not Available methylpredn isolone 4 mg tablets in a dose pack FOLLOW PACKAGE DIRECTION S 09/07 completed Not Available Not Available Not Available albuterol sulfate HFA 90 mcg/actuati on aerosol inhaler Inhale 2 puffs every 4-6 hours by inhalatio n route as needed. active Not Available Not Available No t Available SSD 1 % topical cream APPLY TO BURN THREE TIMES DAILY active Not Available Not Available No t Available betamethaso ne valerate 0.12 % topical foam KELVIN EXT AA BID PRF ECZEMA RASH 09/07 completed Not Available Not Available Not Available Adderall 10 mg tablet 01/17 completed Not Available Not Available Not Available azithromyci n 500 mg tablet 07/26 completed Not Available Not Available Not Available Prilosec OTC 20 mg tablet,sajan yed release Take 1 tablet every day by oral route. 2015 active Not Available Not Available Not Avai lable dexmethylph enidate ER 10 mg capsule,ext ended release [id number] 50 Take 1 capsule every day by oral route. 08/16 completed Not Available Not Available Not Available dexmethylph enidate ER 20 mg capsule,ext ended release [id number]- 50 Take 1 capsule every day by oral route. 10/18 completed Not Available Not Available Not Available omeprazole active Not Available Not Av ailable Not Available famotidine active Not Available Not Av ailable Not Available Tums active Not Available Not Availa ble Not Available Zantac 75 PRN 09/07 completed Not Available Not Available Not Available Zyrtec 10 mg capsule Take by oral route. 2017 active Not Available Not Available Not Avai lable Estarylla 0.25 mg-35 mcg tablet TK 1 T PO QD 12/18 completed Not Available Not Available Not Available albuterol sulfate 90 mcg/actuati on breath activated powder inhaler Inhale 2 puffs every 4 hours by inhalatio n route. 09/07 completed Not Available Not Available Not Available Vitals Date Recorded Body mass index (BMI) Body height Oxygen saturation Oxygen saturation in Arterial blood by Pulse oximetry Heart rate Body temperature Body weight Systolic blood pressure Diastolic blood pressure Provider Name and Address Organization Details Last Updated DateTime 1 47.3 kg/m2 148.59 cm 98 % 98 % 97 /min 97.5 [degF] 102248. 25 g 120 mm[Hg] 80 mm[Hg] Not Available [facility] 3 18:02:57 Date Recorded Body mass index (BMI) Body height Oxygen saturation Oxygen saturation in Arterial blood by Pulse oximetry Heart rate Respiratory rate Body temperature Body weight Systolic blood pressure Diastolic blood pressure Provider Name and Address Organization Details Last Updated DateTime 2 52.4 kg/m2 148.59 cm 97 % 97 % 90 /min 16 /min 97.9 [degF] 110348. 05 g 128 mm[Hg] 80 mm[Hg] Not Available [facility] 3 18:02:57 Date Recorded Body height Body temperature Body mass index (BMI) Body weight Respiratory rate Heart rate Oxygen saturation Oxygen saturation in Arterial blood by Pulse oximetry Systolic blood pressure Diastolic blood pressure Provider Name and Address Organization Details Last Updated DateTime 3 148.59 cm 97.2 [degF] 49.9 kg/m2 183520. 95 g 16 /min 98 /min 98 % 98 % 128 mm[Hg] 82 mm[Hg] CHANDLER Lawson [employer] [facility] 3 12:37:38 Date Recorded Body height Provider Name an d Address Organization Details Last Updated DateTime 08/30/2023 148.59 cm CHANDLER Lawson [facility] 08/30/2023 14:44:59 Date Recorded Body mass index (BMI) Body weight Heart rate Oxygen saturation Oxygen saturation in Arterial blood by Pulse oximetry Systolic blood pressure Diastolic blood pressure Provider Name and Address Organization Details Last Updated DateTime 3 49.1 kg/m2 324604. 58 g 87 /min 97 % 97 % 122 mm[Hg] 84 mm[Hg] Alicia Turner MA [place] - [facility] 3 14:50:37 Social History Question Answer Notes LastModified by [employer] Details LastModified Time Tobacco Smoking Status Never Smoker Not Available [facility] 12/08/2022 18:02:35 What Is Your Level Of Alcohol Consumption? Moderate [id number] Information not available 12/08/2022 What Is Your Level Of Caffeine Consumption? Moderate [id number] Information not available 12/08/2022 How Much Tobacco Do You Chew? None [id number] Information not available 12/08/2022 What Type Of Diet Are You Following? REGULAR [id number] Information not available 12/08/2022 Which Illicit Or Recreational Drugs Have You Used? 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 Yes [id number] Information not available 12/08/2022 How Much Tobacco Do You Smoke? No [id number] Information not available 12/08/2022 How Many Years Have You Smoked Tobacco? 0 [id number] Information not available 12/08/2022 Do You Or Have You Ever Used Any Other Forms Of Tobacco Or Nicotine? No [email or web address] Information not available 03/21/2023 Sex: Unknown Functional Status Question Answer Note LastModified by [employer] Details LastModified Time What is your exercise level? Occasional [id number] Information not available 12/08/2022 Mental Status None recorded. Family History Relationship Description Onset Age of this Age Resolved Age Notes LastModified by Organization Details LastModified Time Mother Cerebrovascu lar accident [id number] Not available 12/08/2022 18:02:48 Mother Disorder of thyroid gland [id number] Not available 12/08/2022 18:02:48 Mother Depressive disorder [id number] Not available 12/08/2022 18:02:48 Mother Asthma [id number] Not available 12/08/2022 18:02:48 Mother Anxiety disorder [id number] Not available 12/08/2022 18:02:48 Father Hypertensive disorder [id number] [id number] Not available 12/08/2022 18:02:48 Father Alcoholism [id number] Not available 12/08/2022 18:02:48 Father Depressive disorder [id number] Not available 12/08/2022 18:02:48 Medical History Condition Response NERVE DISEASE N BLINDNESS N RHEUMATIC FEVER N KIDNEY STONES N BLADDER PROBLEMS N OTHER # 1 N POLIO N LUNG DISEASE/DISORDER N COPD N RADIATION / CHEMOTHERAPY N Other # 2 N BLOOD DISEASES N SURGERY N EAR OR HEARING PROBLEMS N MUMPS N BOWEL PROBLEMS N DEPRESSION (INCLUDING POST ) N STROKE/TIA N ULCERS N BENIGN PROSTATIC HYPERPLASIA N MEASLES N MYOCARDIAL INFARCTION N OBESITY Y GERD/NAUSEA N ANEURYSM N URINARY/BLADDER/KIDNEY PROBLEMS N CORONARY ARTERY DISEASE (CAD) N INPATIENT PSYCH CARE N ADDICTION CONCERNS N ENDOMETRIOSIS N Impotence N USE OF BLOOD THINNERS N SKIN PROBLEMS Y GASTROINTESTINAL DISORDER N PERIPHERAL VASCULAR DISEASE N MUSCLE,JOINT OR BONE PROBLEMS N GASTROINTESTINAL BLEEDING N BLOOD CLOTS N ASTHMA Y CATARACTS N ERECTILE DYSFUNCTION N VARICOSITIES N GI PROBLEMS N Low Testosterone N INFERTILITY N AIDS/HIV N LIVER DISEASE N MALE HYPOGONADISM N HYPERTENSION N Deficiency N ANXIETY DISORDER N BLOOD TRANSFUSION N ANEMIA/BLOOD DISORDER N CHRONIC EAR INFECTIONS N BRONCHITIS N TUBERCULOSIS N GLAUCOMA N FOOT PROBLEM N DIVERTICULITIS N SLEEP APNEA N CHICKENPOX N INFECTIOUS DISEASE N HEART ARRHYTHMIA N PROSTATE N INSOMNIA N HIGH CHOLESTEROL / HYPERLIPIDEMIA N HYPERTHYROIDISM N EYE PROBLEMS N NEUROLOGICAL PROBLEMS N EDEMA N CHRONIC PAIN SYNDROME N HYPOTHYROIDISM N CAROTID BLOCKAGE N CONSTIPATION N BACK / NECK PROBLEMS N HAVE YOU BEEN HOSPITALIZED OR SEEN IN [facility] IN THE PAST YEAR ? N ATHEROSCLEROSIS N BREAST PROBLEMS N DIALYSIS N ECZEMA N OSTEOPOROSIS N ARTHRITIS N NO SIGNIFICANT PAST MEDICAL HISTORY N APPENDICITIS N DIABETES, TYPE N BAD TEETH N ENT N HEARTBURN / REFLUX N AUTISM SPECTRUM DISORDER (ASD) N HEPATITIS / LIVER DISEASE N PULMONARY DISEASE N GOUT N SLEEP DISORDER N ALZHEIMER'S DISEASE N Brain Problems N HERPES N DEMENTIA N HEADACHES/MIGRAINES Y SEIZURES/EPILEPSY N VASCULAR DISEASE N PACEMAKER N Blood Disorder N DIZZINESS N HEART DISEASE/HEART PROBLEMS N KIDNEY DISEASE N MULTIPLE SCLEROSIS N CARDIAC ARRHYTHMIA Y CANCER: SPECIFY N ANESTHESIA COMPLICATIONS N ATRIAL FIBRILLATION N Gall Stones N PULMONARY EMBOLISM N AUTOIMMUNE DISEASE N Gynecological History Statement/Question Response Abnormal Pap N Date of LMP 09/16/2022 Sexually Active? Y STIs/STDs N Date of Last Pap Smear 08/31/2022 Current Control Method Condoms Age at Menarche 8 Obstetrics History GPAL:G 0 P 0 0 0 0 Immunizations Vaccine Type Date Status Note Provider Nam e and Address Organization Details Recorded Time Influenza, split virus, quadrivalent, preservative 1 completed Not Available [facility] 12/08/2022 18:04:43 COVID-19, mRNA, LNP-S, PF, 30 mcg/0.3 mL dose 1 completed Not Available [facility] 12/08/2022 18:04:43 COVID-19, mRNA, LNP-S, PF, 30 mcg/0.3 mL dose 1 completed Not Available [facility] 12/08/2022 18:04:43 COVID-19, mRNA, LNP-S, PF, 30 mcg/0.3 mL dose 0 completed Not Available [facility] 12/08/2022 18:04:43 influenza, unspecified formulation 6 completed Not Available [facility] 12/08/2022 18:04:43 influenza, unspecified formulation 5 completed Not Available [facility] 12/08/2022 18:04:43 Past Encounters Encounter ID Performer Location Encounter Start Date Encounter Closed Date Diagnosis/Indication Diagnosis SNOMED-CT Code Diagnosis ICD10 Code [id number] [facility] [address] [place] [address] 12/18/2020 00:00:00 01/02/2021 00:56:22 [id number] [facility] [address] [place] [address] 09/07/2021 00:00:00 09/07/2021 21:49:41 [id number] [facility] [address] [place] [address] 09/21/2022 00:00:00 10/07/2022 17:08:04 [id number] MAISHA Lanier [facility] [address] [place] [address] 03/21/2023 12:26:25 03/21/2023 12:56:05 Fatigue 22445593 R53.83 Diabetes m ellitus screening 444905807 Z13.1 Cholesterol screening 27 5942392 Z13.220 Long-term drug therapy 760986724 Z79.899 Attention deficit hyperactivity disorder, predominantly inattentive type 89780453 F90.0 [id number] MAISHA Lanier [facility] [address] [place] [address] 08/30/2023 14:44:13 08/30/2023 15:15:48 Burning epigastric pain 35649312 R10.13 Acid reflux 780617231 K2 1.9 Nausea and vomiting 1693 2000 R11.2 Health Concerns Section Related Observation LastModified by Organization Detai ls LastModified Time None Recorded Concern Status LastModified by Organization Details LastModified Time None Recorded Advance Directives Directive None Recorded Payers Encounter Date Sequence Insurance Name Policy Number Policy Montesinos Covered Member ID Montesinos Member ID Guarantor Name 03/21/2023 1 [facility] ON OR AFTER 04/09/21 (MEDICAID REPLACEMENT - HMO) Mckayla Orellana [id number] Mckayla Orellana 08/30/2023 1 [facility] ON OR AFTER 04/09/21 (MEDICAID REPLACEMENT - HMO) Mckayla Orellana [id number] Mckayla Orellana Notes Date Note Type Note Provider Name and Address Organization Details Recorded Time 12/18/2020 text/html Adult ADHDReport ed bypatient.Timing of Symptoms:chronic ADHD Context:increased productivity at work; improved school performance; able to set limits with obligations; no dysfunction in family; no financial problems ADHD Severity:moderate Modifying factors:medication adherence: greater than 90% ADHD Associated Symptoms Inattention:able to pay attention; well organized; does not make careless mistakes; attention to detail; not forgetful; no difficulty focusing; not bored easily; no daydreaming; no confusion; no difficulty processing information; no difficulty following instructions;easily distracted ADHD Associated Symptoms Impulsivity:patient; does not interrupt conversations/activit ies; does not blurt out inappropriate comments; shows emotion with restraint ADHD Associated Symptoms Hyperactivity:does not fidget/squirm; no excessive talking; does not run/move in inappropriate situations; not constantly in motion; no difficulty with quiet tasks/activitiesNotes :very stable and sx controlled on medication.Generic HPI TemplateReported bypatient.Notes:Pt presents today via telehealth for routine follow up.Reflux/GERDReporte d bypatient.Symptomshea rtburn Severity:improving Duration:present 1-4 years Onset/Timing:occasion al Context:non-smoker Alleviating Factors:medication Aggravating Factors:worsened by food Associated Symptoms:no frequent coughing; no feeling of fullness/mass in throat; no hoarseness; no food getting stuck; no belching/burping; no nausea; not vomiting blood; no regurgitation; no shortness of breath; no chest pain; no difficulty swallowing; no pain when swallowing; no throat pain;heartburn Not Available [facility] [employer] [facility] [employer] 01/02/2021 00:56:22 09/07/2021 text/html Adult ADHDReport ed bypatient.ADHD Context:increased productivity at work; improved school performance; able to set limits with obligations; no dysfunction in family; no financial problems Modifying factors:medication adherence: greater than 90% ADHD Associated Symptoms Inattention:able to pay attention; well organized; does not make careless mistakes; not easily distracted; attention to detail; not forgetful; no difficulty focusing; not bored easily; no daydreaming; no confusion; no difficulty processing information; no difficulty following instructions ADHD Associated Symptoms Impulsivity:patient; does not interrupt conversations/activit ies; does not blurt out inappropriate comments; shows emotion with restraint ADHD Associated Symptoms Hyperactivity:does not fidget/squirm; no excessive talking; does not run/move in inappropriate situations; not constantly in motion; no difficulty with quiet tasks/activitiesReflu x/GERDReported bypatient.Symptomshea rtburn Quality:burning Severity:improving Duration:present 1-4 years Onset/Timing:occasion al Context:non-smoker; positional; new medications: Alleviating Factors:medication; proton pump inhibitors Aggravating Factors:lying down;worsened by food Associated Symptoms:no frequent coughing; no hoarseness; no food getting stuck; no vomiting; not vomiting blood; no regurgitation; no shortness of breath; no chest pain; no difficulty swallowing; no pain when swallowing; no decreased appetite; no weight loss; no fatigue; no throat pain; no bloating; no early satiety;heartburn Not Available [facility] 09/07/2021 21:49:41 09/21/2022 text/html Adult ADHDReport ed bypatient.Timing of Symptoms:chronic; doesnt matter time of day. ADHD Duration:years ADHD Context:increased productivity at work; improved school performance; able to set limits with obligations; no dysfunction in family; no financial problems ADHD Severity:worse (since she hasnt been on meds w/) Modifying factors:medications as directed (wanting to go back on med.) ADHD Associated Symptoms Inattention:does not make careless mistakes; attention to detail; no difficulty processing information; no difficulty following instructions;unable to pay attention;poorly organized;easily distracted;forgetful; difficulty focusing;bored easily;daydreaming;ea sily confused ADHD Associated Symptoms Impulsivity:patient; does not interrupt conversations/activit ies; shows emotion with restraint;blurts out inappropriate comments ADHD Associated Symptoms Hyperactivity:does not run/move in inappropriate situations; no difficulty with quiet tasks/activities;fidg ets/squirms;excessive talking;constantly in motion Not Available [facility] 10/07/2022 17:08:04 03/21/2023 text/html Adult ADHDReport ed bypatient.Timing of Symptoms:chronic ADHD Context:increased productivity at work; improved school performance; able to set limits with obligations; no dysfunction in family; no financial problems Modifying factors:medications as directed ADHD Associated Symptoms Inattention:able to pay attention; well organized; does not make careless mistakes; not easily distracted; attention to detail; not forgetful; no difficulty focusing; not bored easily; no daydreaming; no confusion; no difficulty processing information; no difficulty following instructions ADHD Associated Symptoms Impulsivity:patient; does not interrupt conversations/activit ies; does not blurt out inappropriate comments; shows emotion with restraint ADHD Associated Symptoms Hyperactivity:does not fidget/squirm; no excessive talking; does not run/move in inappropriate situations; not constantly in motion; no difficulty with quiet tasks/activitiesFatig ueReported bypatient.Quality:con tinuous Severity:normal sleep patterns; normal activity;worsening Duration:constant Timing:worse Context:symptoms do not improve on weekends/vacations;pr oblems/stress at work or home Modifying Factors:no new stressors in life Associated Symptoms:no drug/alcohol withdrawal; no depression; no anxiety; no sleep disturbances; no snoring; periods of not breathing (apnea) have not been observed; no recent change in weight MAISHA Lanier [address] [address], [place], [id number], [facility] 04/08/2023 23:29:57 08/30/2023 text/html Abdominal PainReported bypatient.Location[facility] Quality:burning Duration:started: (3 days ago) Onset/Timing:worse Associated Symptoms:heartburnRef lux/GERDReported bypatient.Quality:bur [place] Severity:worsening; moderate Duration:present for 1-6 months Onset/Timing:daily; occurs immediately after meals Context:non-smoker; no drug/alcohol abuse; no drug alcohol withdrawal;related to any meal;related to spicy foods;positional Alleviating Factors:nothing helps Aggravating Factors:lying down;worsened by food Associated Symptoms:nausea;vomit ing;regurgitation;hea rtburn [facility]ISHA Lanier [address] [facility] [address], [place], [address], [facility] 09/01/2023 21:01:44 OBGyn Episode No OBEpisode recorded.
--- OUTSIDE RECORDS SUMMARY | 2024-10-06 23:21 | XMS_ITS | Encounter Summary ---
Author Organization [facility] Address [address] 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 Name Role Phone Kaley Tapia Primary Care Provider [phone] Reason for Visit * Reason Comments Abdominal Pain Encounter Details Date Type Department Care Team (Late st Contact Info) Description 04/27/2021 9:24 PM CDT - 04/28/2021 12:40 AM CDT Emergency [facility] Emergency [address] [place] [address] Chandan Borges MD [address] [place] [address] Right flank pain Discharge Disposition: Discharged to home or Selfcare Social History Tobacco Use Types Packs/Day Years [...] PM CDT documented as of this encounter Last Filed [...] Mass Index 48.07 04/27/2021 9:20 PM CDT documented in this encounter Discharge Instructions * Attachments The following attachments cannot be sent through Care Everywhere. * Abdominal Pain, Unknown Cause, (Female) (Japanese) documented in this encounter Medications at Time of Discharge acetaminophen-co deine (TYLENOL #3) 300-30 MG Tablet Take 1-2 Tabs by mouth every 6 hours as needed for Pain. 10 Tab 0 06/18/2016 ALBUTEROL SULFATE INIndications:pr n take 1 Inhaler by inhalation every 6 hours. Indications: prn baclofen (LIORESAL) 10 MG Tablet Take 1 Tab by mouth nightly as needed. 9 Tab 0 06/18/2016 beclomethasone (QVAR) 80 MCG/ACT Aerosol Solution take 2 Puffs by inhalation daily. ibuprofen (MOTRIN) 800 MG Tablet Take 1 Tab by mouth every 8 hours. 270 Tab 3 06/18/2016 documented as of this encounter ED Notes * Maurizio Padilla RN - 04/28/2021 12:39 AM CDT Patient discharged. Discharge instructions and patient educational material reviewed with patient; questions and concerns addressed; patient verbalizes understanding, using teach back. Patient was given 0 prescriptions. Patient was informed of the need to follow up with PCP for ongoing care or return for worsening symptoms. Patient ambulatory to ER exit with vaishnavi as responsible democrat. SL D/C'edwith Mykel cath intact. Pt alert and oriented x 4 with respirations that are even and unlabored attime of discharge * Maurizio Padilla RN - 04/27/2021 11:34 PM CDT Patient is resting in room with call light at bedside. Patient informed about wait time and verbalizes understanding. Patient denies needs at this time and verbalizes understanding that RN will complete hourly rounding. * Maurizio Padilla RN - 04/27/2021 10:17 PM CDT Pt medicated per provider orders. Pt educated on intended effects and side effects of medication and verbalized understanding, able to provide teach back of education. * Chandan Borges MD - 04/27/2021 9:43 PM CDT Chief Complaint Patient presents with ??? Abdominal Pain Patient is 25-year-old female who presents emergency room with right flank pain ring. Patient states she started having symptoms yesterday of discomfort in the right side of her chest. Patient statesshe had dysuria and urinary frequency. 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 She states that noted leukocytes and blood present so she was started on Bactrim. She has taken 1 dose of this so far. While she was at home this evening she developed severe pain in the right flank region that doubled her over. He states he had a episode of diarrhea. She is very nauseated also. No current facility-administered medications for this encounter. Current Outpatient Medications Medication Sig Dispense Refill ??? acetaminophen-codeine (TYLENOL #3) 300-30 MG Tablet Take 1-2 Tabs by mouth every 6 hours as needed for Pain. 10 Tab 0 ??? ALBUTEROL SULFATE IN take 1 Inhaler by inhalation every 6 hours. Indications: prn ??? baclofen (LIORESAL) 10 MG Tablet Take 1 Tab by mouth nightly as needed. 9 Tab 0 ??? beclomethasone (QVAR) 80 MCG/ACT Aerosol Solution take 2 Puffs by inhalation daily. ??? ibuprofen (MOTRIN) 800 MG Tablet Take 1 Tab by mouth every 8 hours. 270 Tab 3 No Known Allergies Past Medical History Positives Diagnosis Date ??? Asthma No past surgical history on file. Social History Socioeconomic History ??? Marital status: Single Spouse name: Not on file ??? Number of children: Not on file ??? Years of education: Not on file ??? Highest education level: Not on file Occupational History ??? Not on file Tobacco Use ??? Smoking status: Never Smoker ??? Smokeless tobacco: Never Used Substance and Sexual Activity ??? Alcohol use: Yes Alcohol/week: 3.0 oz Types: 5 Cans of beer per week ??? Drug use: No ??? Sexual activity: Not on file Other Topics Concern ??? Not on file Social History Narrative ??? Not on file Social Determinants of Health Social determinant risk not applicable to this patient. BP 148/90 Pulse 109 Temp 97.1 ??F (36.2 ??C) (Temporal) Resp 16 Ht 4' 10 (1.473 m) Wt 230 lb (104.3 kg) SpO2 98% BMI 48.07 kg/m?? Review of Systems Constitutional: Negative for activity change, appetite change, chills and fever. HENT: Negative for congestion, ear pain, rhinorrhea, sore throat and trouble swallowing. Eyes: Negative for pain and visual disturbance. Respiratory: Negative for cough, shortness of breath and wheezing. Cardiovascular: Negative for chest pain. Gastrointestinal: Negative for abdominal pain, diarrhea, nausea and vomiting. Genitourinary: Negative for difficulty urinating and dysuria. Musculoskeletal: Negative for arthralgias and back pain. Skin: Negative for pallor. Neurological: Negative for headaches. Hematological: Negative for adenopathy. Psychiatric/Behavioral: Negative for confusion. All other systems reviewed and are negative. Physical Exam Vitals and nursing note reviewed. Constitutional: General: She is not in acute distress. Appearance: She is well-developed. She is not diaphoretic. HENT: Head: Normocephalic and atraumatic. Right Ear: External ear normal. Left Ear: External ear normal. Eyes: Conjunctiva/sclera: Conjunctivae normal. Pupils: Pupils are equal, round, and reactive to light. Neck: Trachea: No tracheal deviation. Cardiovascular: Rate and Rhythm: Normal rate and regular rhythm. Heart sounds: Normal heart sounds. No murmur heard. Pulmonary: Effort: Pulmonary effort is normal. No respiratory distress. Breath sounds: Normal breath sounds. No wheezing or rales. Abdominal: General: Bowel sounds are normal. There is no distension. Palpations: Abdomen is soft. There is no hepatomegaly or splenomegaly. Tenderness: There is abdominal tenderness in the right upper quadrant. There is right CVA tenderness. There is no left CVA tenderness, guarding or rebound. Hernia: No hernia is present. Musculoskeletal: General: Normal range of motion. Cervical back: Normal range of motion. Skin: General: Skin is warm and dry. Neurological: Mental Status: She is alert and oriented to person, place, and time. Cranial Nerves: No cranial nerve deficit. Procedures Imaging Results CT RENAL STONE STUDY (ABDOMEN AND PELVIS W/O CONTRAST) (Final result) Result time 04/27/21 23:17:[address] ABDOMEN PELVIS W/O CONTRAST Final result by Lissett Lawrence MD (04/27/21 23:17:48) Impression: IMPRESSION: No urinary tract calcification or obstruction, as above. Shotty lymph nodes scattered throughout the retroperitoneum which are nonspecific. Narrative: EXAM DESCRIPTION: CT RENAL STONE STUDY (ABDOMEN AND PELVIS W/O CONTRAST) REASON FOR STUDY: Flank pain, kidney stone suspected Right lower abdominal and right flank pain, onset 1930 hours today, burning, frequency and blood in urine TECHNIQUE: CT scan of the abdomen and pelvis performed without intravenous and without oral contrast using helical scanning technique. Reconstructed coronal and sagittal MPR images reviewed. All images stored on PACS. Automated exposure control was used as a dose optimization technique for this examination. COMPARISON: None available FINDINGS: The sensitivity for detection of visceral lesions is diminished without the use of intravenous contrast. LOWER CHEST: Normal heart size. No pericardial effusion. Mild linear scar/atelectatic change at the lower lungs. LIVER: Normal size. No identified cystic or solid masses. GALLBLADDER: No stones identified. No wall thickening or inflammatory changes. BILE DUCTS: No intrahepatic or extrahepatic ductal dilatation. SPLEEN: Normal size. No focal lesions. PANCREAS: No identified cystic or solid masses. No significant calcifications. No adjacent inflammation or peripancreatic fluid collections. Pancreatic duct not dilated. ADRENALS: Normal. KIDNEYS/URINARY TRACT: Tiny hypodensity at the right renal midpole laterally is too small to characterize. No definite lesion on the left. No urinary tract calcification or obstruction on either side. Urinary bladder is unremarkable. GI: No dilated bowel loops. No obvious wall thickening. Normal appendix. No significant diverticular disease. PERITONEUM: No ascites or free air. RETROPERITONEUM: No lymphadenopathy or soft tissue mass within the retroperitoneum. There are subcentimeter lymph nodes scattered throughout the retroperitoneum which are nonspecific. REPRODUCTIVE: No significant abnormality. VASCULATURE: No abdominal aortic aneurysm. MUSCULOSKELETAL: No acute fracture. Degenerative joint disease. OTHER: No other abnormality. THIS IS AN ELECTRONICALLY VERIFIED FINAL REPORT 04/27/2021 11:14 PM - Electronically signed by Lissett Lawrence M.D. JS: DESMOND Report ID: [id number] Reading Location: [id number] CT ABDOMEN PELVIS W/O CONTRAST (Canceled) MDM Number of Diagnoses or Management Options Amount and/or Complexity of Data Reviewed Clinical lab tests: ordered and reviewed Tests in the radiology section of CPT??: ordered and reviewed Risk of Complications, Morbidity, and/or Mortality Presenting problems: moderate Diagnostic procedures: moderate Management options: moderate General comments: Differential diagnosis: UTI, pyelonephritis, ureterolithiasis Patient Progress Patient progress: stable Reviewed: previous chart, nursing note and vitals Interpretation: labs and CT scan Clinical Impression 1. Right flank pain Patient presents emergency room with severe right flank pain. 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 Culture still pending. She was given Bactrim to take. She came in when the pain became severe. Labs were obtained came back with an elevated white blood cell count of 15.41. All of her other labs however were negative. Urinalysiswas negative as was the CMP lipase and test. I went over these results with the patient and a CT scan of the abdomen pelvis was done and revealed no acute findings. She will be discharged home. She will continue to check on the growth of the urine culture. She is advised to follow-up withher regular doctor for recheck. * Maurizio Padilla RN - 04/27/2021 9:31 PM CDT Pt to ER room 8 w/c/o right lower abdominal and flank pain starting at 1930 today when she started taking bactrim. Pt states that she is currently being Tx for a presumed UTI. PT alert and oriented x4 with respirations that are even and unlabored. Call light within reach. * Steven Gray RN - 04/27/2021 9:22 PM CDT Pt ambulatory to Ed with c/o right sided abdominal and flank pain. Pt states she is being treated for possible UTI with Bactrim that she started yesterday. Pt says she has burning and frequency and blood in her urine. documented in this encounter Plan of Treatment Not on file documented as of this encounter Procedures Procedure Name Priority Date/Time Associated Diagnosis Comments CT RENAL STONE STUDY (ABDOMEN AND PELVIS W/O CONTRAST) STAT 04/27/2021 11:03 PM CDT EXTRA TUBES STAT 04/27/2021 10:08 PM CDT GOLD TOP TUBE STAT 04/27/2021 10:08 PM CDT LAVENDER TOP TUBE STAT 04/27/2021 10: 08 PM CDT CBC WITH AUTO DIFFERENTIAL STAT 04/27/2021 10:08 PM CDT HUMAN CHORIONIC GONADOTROPIN SCRN SERUM STAT 04/27/2021 10:08 PM CDT LIPASE STAT 04/27/2021 10:08 PM CDT CMP (COMPREHENSIVE METABOLIC PANEL) STAT 04/27/2021 10:08 PM CDT COMPLETE BLOOD COUNT (CBC) WITH DIFF STAT 04/27/2021 10:08 PM CDT URINALYSIS REFLEX IF INDICATED BY ABNORMAL RESULTS STAT 04/27/2021 9:38 PM CDT CULTURE, URINE STAT 04/27/2021 9:38 PM CDT documented in this encounter Results * CT RENAL STONE STUDY (ABDOMEN AND PELVIS W/O CONTRAST) (04/27/2021 11:03 PM CDT) Anatomical Region Laterality Modality Abdomen N/A Computed Tomogra phy 04/27/2021 11:1 4 PM CDT Impressions 04/27/2021 11:17 PM CDT IMPRESSION: ?? No urinary tract calcification or obstruction, as above. Shotty lymph nodes scattered throughout the retroperitoneum which are nonspecific. Narrative 04/27/2021 11:17 PM CDT EXAM DESCRIPTION: ?? CT RENAL STONE STUDY (ABDOMEN AND PELVIS W/O CONTRAST) REASON FOR STUDY: ?? Flank pain, kidney stone suspected Right lower abdominal and right flank pain, onset 1930 hours today, burning, frequency and blood in urine TECHNIQUE: ??CT scan of the abdomen and pelvis performed without intravenous and ??without oral contrast using helical scanning technique. Reconstructed coronal and sagittal MPR images reviewed. All images stored on PACS. ??Automated exposure control was used as a dose optimization technique for this examination. COMPARISON: ?? None available FINDINGS: ??The sensitivity for detection of visceral lesions is diminished without the use of intravenous contrast. LOWER CHEST: ??Normal heart size. ??No pericardial effusion. ??Mild linear scar/atelectatic change at the lower lungs. LIVER: ??Normal size. ??No identified cystic or solid masses. GALLBLADDER: ??No stones identified. No wall thickening or inflammatory changes. BILE DUCTS: ??No intrahepatic or extrahepatic ductal dilatation. SPLEEN: ??Normal size. ??No focal lesions. PANCREAS: ??No identified cystic or solid masses. ??No significant calcifications. No adjacent inflammation or peripancreatic fluid collections. Pancreatic duct not dilated. ADRENALS: ??Normal. KIDNEYS/URINARY TRACT: ??Tiny hypodensity at the right renal midpole laterally is too small to characterize. ??No definite lesion on the left. ??No urinary tract calcification or obstruction on either side. Urinary bladder is unremarkable. GI: ??No dilated bowel loops. No obvious wall thickening. ??Normal appendix. ??No significant diverticular disease. PERITONEUM: ??No ascites or free air. RETROPERITONEUM: ??No lymphadenopathy or soft tissue mass within the retroperitoneum. ??There are subcentimeter lymph nodes scattered throughout the retroperitoneum which are nonspecific. REPRODUCTIVE: ??No significant abnormality. VASCULATURE: ??No abdominal aortic aneurysm. MUSCULOSKELETAL: ??No acute fracture. ??Degenerative joint disease. OTHER: ??No other abnormality. THIS IS AN ELECTRONICALLY VERIFIED FINAL REPORT 04/27/2021 11:14 PM - Electronically signed by Lissett Lawrence M.D. JS: DESMOND D: ??04/27/2021 11:14 PM T: ??04/27/2021 11:14 PM Report ID: [id number] Reading Location: ??[id number] Procedure Note Lissett Lawrence MD - 04/27/2021 EXAM DESCRIPTION: CT RENAL STONE STUDY (ABDOMEN AND PELVIS W/O CONTRAST) REASON FOR STUDY: Flank pain, kidney stone suspected Right lower abdominal and right flank pain, onset 1930 hours today, burning, frequency and blood in urine TECHNIQUE: CT scan of the abdomen and pelvis performed without intravenous and without oral contrast using helical scanning technique. Reconstructed coronal and sagittal MPR images reviewed. All images stored on PACS. Automated exposure control was used as a dose optimization technique for this examination. COMPARISON: None available FINDINGS: The sensitivity for detection of visceral lesions is diminished without the use of intravenous contrast. LOWER CHEST: Normal heart size. No pericardial effusion. Mild linear scar/atelectatic change at the lower lungs. LIVER: Normal size. No identified cystic or solid masses. GALLBLADDER: No stones identified. No wall thickening or inflammatory changes. BILE DUCTS: No intrahepatic or extrahepatic ductal dilatation. SPLEEN: Normal size. No focal lesions. PANCREAS: No identified cystic or solid masses. No significant calcifications. No adjacent inflammation or peripancreatic fluid collections. Pancreatic duct not dilated. ADRENALS: Normal. KIDNEYS/URINARY TRACT: Tiny hypodensity at the right renal midpole laterally is too small to characterize. No definite lesion on the left. No urinary tract calcification or obstruction on either side. Urinary bladder is unremarkable. GI: No dilated bowel loops. No obvious wall thickening. Normal appendix. No significant diverticular disease. PERITONEUM: No ascites or free air. RETROPERITONEUM: No lymphadenopathy or soft tissue mass within the retroperitoneum. There are subcentimeter lymph nodes scattered throughout the retroperitoneum which are nonspecific. REPRODUCTIVE: No significant abnormality. VASCULATURE: No abdominal aortic aneurysm. MUSCULOSKELETAL: No acute fracture. Degenerative joint disease. OTHER: No other abnormality. THIS IS AN ELECTRONICALLY VERIFIED FINAL REPORT 04/27/2021 11:14 PM - Electronically signed by Lissett Lawrence M.D. JS: DESMOND Report ID: [id number] Reading Location: [id number] IMPRESSION: No urinary tract calcification or obstruction, as above. Shotty lymph nodes scattered throughout the retroperitoneum which are nonspecific. Chandan Borges MD IMG CT ORDERABLES Final R esult * Human Chorionic Gonadotropin Scrn Serum [id number] (04/27/2021 10:08 PM CDT) PREG-HCG Negative 04/27/2021 10:45 PM CDT [facility] Blood No Phlebotomy Charged / Unknown 04/27/2021 10:08 PM CDT 04/27/2021 10:18 PM CDT Chandan Borges MD CHEMISTRY ORDERABLES Cheri l Result Performing Organization Address City/[facility]/ZIP Co de Phone Number [facility] [address] [place] [address] * Lavender Top Tube (04/27/2021 10:08 PM CDT) Blood No Phlebotomy Charged / Unknown 04/27/2021 10:08 PM CDT 04/27/2021 10:18 PM CDT Chandan Borges MD HEMATOLOGY ORDERABLES Fin al Result [facility] [address] [place] [address] * Gold Top Tube (04/27/2021 10:08 PM CDT) Blood No Phlebotomy Charged / Unknown 04/27/2021 10:08 PM CDT 04/27/2021 10:18 PM CDT us Chandan Borges MD CHEMISTRY ORDERABLES Cheri reed Result [facility] [address] [place] [address] * (ABNORMAL) CBC with Auto Differential (04/27/2021 10:08 PM CDT) WBC 15.41(H) 4.00 - 12.00 10(3)/[facility] 04/27/2021 10:35 PM CDT [facility] RBC 4.52 3.80 - 5.30 10(6)/[facility] 04/27/2021 10:35 PM CDT [facility] HEMOGLOBIN (HGB) 13.1 12.0 - 15.8 g/dL 04/27/2021 10:35 PM CDT [facility] HEMATOCRIT (HCT) 39.2 36.0 - 47.0 % 04/27/2021 10:35 PM CDT [facility] MCV 86.7 82.0 - 96.0 fL 04/27/2021 10:35 PM CDT [facility] MCH 29.0 26.0 - 34.0 pg 04/27/2021 10:35 PM CDT [facility] MCHC 33.4 31.0 - 36.0 g/dL 04/27/2021 10:35 PM CDT [facility] PLATELET COUNT 329 140 - 440 10(3)/mcL 04/27/2021 10:35 PM CDT [facility] RDW 12.4 11.8 - 15.5 % 04/27/2021 10:35 PM CDT [facility] MPV 10.0 9.7 - 12.4 fL 04/27/2021 10:35 PM CDT [facility] NEUTROPHILS 78.1(H) 47.0 - 73.0 % 04/27/2021 10:35 PM CDT [facility] LYMPHOCYTES 14.5(L) 18.0 - 42.0 % 04/27/2021 10:35 PM CDT [facility] MONOCYTES 6.3 4.0 - 12.0 % 04/27/2021 10:35 PM CDT [facility] EOSINOPHILS 1.0 0.0 - 5.0 % 04/27/2021 10:35 PM CDT [facility] BASOPHILS 0.1 0.0 - 1.0 % 04/27/2021 10:35 PM CDT [facility] ABSOLUTE NEUTROPHILS 12.04(H) 1.60 - 7.70 10(3)/[facility] 04/27/2021 10:35 PM CDT [facility] ABSOLUTE LYMPHOCYTES 2.23 1.30 - 3.20 10(3)/[facility] 04/27/2021 10:35 PM CDT [facility] ABSOLUTE MONOCYTES 0.97 0.20 - 1.00 10(3)/[facility] 04/27/2021 10:35 PM CDT [facility] ABSOLUTE EOSINOPHIL 0.16 0.00 - 0.40 10(3)/[facility] 04/27/2021 10:35 PM CDT [facility] ABSOLUTE BASOPHILS 0.01 0.00 - 0.10 10(3)/[facility] 04/27/2021 10:35 PM CDT [facility] Blood Venipuncture / Unknown 04/27/2021 10:08 PM CDT 04/27/2021 10:17 PM CDT us Chandan Borges MD HEMATOLOGY ORDERABLES Fin al Result [facility] [address] [place] [address] * Lipase (04/27/2021 10:08 PM CDT) LIPASE 31.8 13 - 60 U/L 04/27/2021 10:54 PM CDT [facility] Blood Venipuncture / Unknown 04/27/2021 10:08 PM CDT 04/27/2021 10:17 PM CDT us Chandan Borges MD CHEMISTRY ORDERABLES Cheri l Result [facility] [address] [place] [address] * (ABNORMAL) CMP (Comprehensive Metabolic Panel) (04/27/2021 10:08 PM CDT) SODIUM 134(L) 136 - 144 mmol/L 04/27/2021 10:54 PM CDT [facility] POTASSIUM 3.5 3.5 - 5.1 mmol/L 04/27/2021 10:54 PM CDT [facility] CHLORIDE 99(L) 100 - 110 mmol/L 04/27/2021 10:54 PM CDT [facility] CO2, VENOUS 24 22 - 32 mmol/L 04/27/2021 10:54 PM CDT [facility] ANION GAP 14.5 8.0 - 20.0 mmol/L 04/27/2021 10:54 PM CDT [facility] GLUCOSE 98 70 - 99 mg/dL 04/27/2021 10:54 PM CDT [facility] BUN 10 6 - 20 mg/dL 04/27/2021 10:54 PM CDT [facility] CREATININE, BLOOD 0.73 0.60 - 1.10 mg/dL 04/27/2021 10:54 PM CDT [facility] BUN/CREATININE RATIO 14 12 - 20 ratio 04/27/2021 10:54 PM CDT [facility] TOTAL PROTEIN 7.3 6.0 - 8.3 g/dL 04/27/2021 10:54 PM CDT [facility] ALBUMIN 4.4 3.5 - 5.2 g/dL 04/27/2021 10:54 PM CDT [facility] Comment: The colormetric methods used for the determination of Albumin may lead to falsely elevated test results in patients suffering from renal failure or insufficiency due to interference with other proteins. A/G RATIO 1.5 1.0 - 2.0 04/27/2021 10:54 PM CDT [facility] CALCIUM 9.4 8.9 - 10.3 mg/dL 04/27/2021 10:54 PM CDT [facility] T BILI <0.3 <=1.2 mg/dL 04/27/2021 10:54 PM CDT [facility] SGOT (AST) 23 <=32 U/L 04/27/2021 10:54 PM CDT [facility] SGPT (ALT) 31 <=41 U/L 04/27/2021 10:54 PM CDT [facility] ALKALINE PHOSPHATASE 68 35 - 105 U/L 04/27/2021 10:54 PM CDT [facility] GFR, EST. NONAFRICAN >60 >=60 04/27/2021 10:54 PM CDT [facility] GFR, EST. >60 >=60 021 10:54 PM CDT [facility] Comment: Creatinine Clearance is the preferred criteria for selecting drug dose adjustments in renally impaired patients. ??The GFR is provided as additional pertinent clinical information. GFR is reported in mL/min/1.73 sq m. Blood Venipuncture / Unknown 04/27/2021 10:08 PM CDT 04/27/2021 10:17 PM CDT us Chandan Borges MD CHEMISTRY ORDERABLES Cheri reed Result [facility] [address] [place] [address] * Culture, Urine (04/27/2021 9:38 PM CDT) CULTURE RESULTS MIXED GROWTH OF 3 OR MORE ORGANISMS, PROBABLE COLLECTION CONTAMINATION, SUGGEST REPEAT URINE CULTURE. 04/29/2021 10:23 AM CDT [facility] Urine URINE SPECIMEN COLLECTION, CLEAN CATCH / Unknown Non-Phlebotomy Collection / Unknown 04/27/2021 9:38 PM CDT 04/27/2021 9:45 PM CDT us Chandan Borges MD MICROBIOLOGY - GENERAL OR DERABLES Final Result [facility] [address] [place] [address], * (ABNORMAL) URINALYSIS REFLEX IF INDICATED BY ABNORMAL RESULTS (04/27/2021 9:38 PM CDT) SPECIFIC GRAVITY 1.025 1.003 - 1.030 04/27/2021 10:05 PM CDT [facility] URINE PH 6.0 5.0 - 9.0 04/27/2021 10:05 PM CDT [facility] WBC ESTERASE 25 /uL(A) Negative 04/27/2021 10:05 PM CDT [facility] NITRITE Negative Negative 04/27/2021 10:05 PM CDT [facility] PROTEIN, RANDOM URINE 15 mg/dL(A) Negative 04/27/2021 10:05 PM CDT [facility] URINE GLUCOSE, QUAL Negative Negative 04/27/2021 10:05 PM CDT [facility] URINE KETONES Negative Negative 04/27/2021 10:05 PM CDT [facility] UROBILINOGEN Normal Normal mg/dL 04/27/2021 10:05 PM CDT [facility] URINE BILIRUBIN Negative Negative 10:05 PM CDT [facility] URINE BLOOD 50 /uL(A) Negative rosa/ul 04/27/2021 10:05 PM CDT [facility] URINALYSIS COLOR Yellow 04/27/20 10:05 PM CDT [facility] URINALYSIS CLARITY Slightly Cloudy 04/27/2021 10:05 PM CDT [facility] WBC (Urine) 0-5 Negative, 0-5 /hpf 04/27/2021 10:05 PM CDT [facility] URINE RBC'S 0-2 Negative, 0-2 /hpf 04/27/2021 10:05 PM CDT [facility] EPITHELIAL CELLS Large amount squamous /lpf 04/27/2021 10:05 PM CDT [facility] BACTERIA, URINE Few(A) Negative /hpf 04/27/2021 10:05 PM CDT [facility] URINE MUCOUS Many 04/27/2021 10:05 PM CDT [facility] Urine URINE SPECIMEN COLLECTION, CLEAN CATCH / Unknown Non-Phlebotomy Collection / Unknown 04/27/2021 9:38 PM CDT 04/27/2021 9:45 PM CDT us Chandan Borges MD URINE ORDERABLES Final Re sult [facility] [address] [place] [address] documented in this encounter Visit Diagnoses Diagnosis Right flank pain- Primary Abdominal pain, unspecified site documented in this encounter Administered Medications Inactive Administered Medications - up to 3 most recent administrations Medication Order MAR Action Action Date Dose Rate Site 0.9 % sodium chloride solution at 500 mL/hr, Intravenous, ONCE, 1 dose, On Tue04/27/21 at 2200 New Bag 04/27/2021 10:14 PM CDT 1,000 mL 500 mL/hr documented in this encounter Active and Recently Administered Medications Times are shown in CDT. Scheduled Medication Order 04/26/2021 04/27/2021 04/28/2021 0.9 % sodium chloride solution (COMPLETED) at 500 mL/hr, Intravenous, ONCE, 1 dose, On Tue04/27/21 at 2200 2214 (New Bag - Provider: Maurizio Padilla RN) 0022 (Stopped - Provider: Kaylen Lemon RN) documented in this encounter Care Teams Priming Machine Operator Relationship Specialty Start Date End Date Kaley Tapia PA PCP - General Family Medicine 06/18/16 documented as of this encounter
--- OUTSIDE RECORDS SUMMARY | 2024-10-06 23:22 | XMS_ITS | Encounter Summary ---
Author Organization [facility] Healthcare Address [address] [place] [address] Care Team Providers Care It Security Consultant Name Role Phone Kaley Tapia Primary Care Pr ovider Encounter Details Date Type Department Care Team (Latest Contact Info) Description 04/19/2021 11:39 AM CDT - 04/19/2021 12:48 PM CDT Hospital Encounter [facility] [address] [place] [id number] Discharge Disposition: Discharge to home or self care Social History Tobacco Use Types Packs/Day Years Used Date Smoking Tobacco: Never Assessed Comments Unknown Sex and Gender Information Value Date Recorded Sex Assigned at Not on file Legal Sex Female 9:13 AM AUDIT INTERN Gender Identity Not on file Sexual Orientation Not on file documented as of this encounter Medications at Time of Discharge albuterol (PROAIR RESPICLICK) 90 mcg/actuation inhaler Inhale 2 puffs every 4 (four) hours as needed for wheezing 12/21/2016 cetirizine (ZyrTEC) 10 mg capsule Take 10 mg by mouth daily 07/18/2018 documented as of this encounter Discharge Disposition Disposition Code Departure Means Destination Discharge to home or self care documented in this encounter Plan of Treatment Not on file documented as of this encounter Procedures Procedure Name Priority Date/Time Associated Diagnosis Comments XR ANKLE RIGHT 3 OR MORE VIEWS ED 04/19/2021 11:56 AM CDT documented in this encounter Results * XR Ankle Right 3 or More Views (04/19/2021 11:56 AM CDT) Anatomical Region Laterality Modality Lower Extremities, Ankle Right Compute d Radiography 04/19/2021 12:0 2 PM CDT Narrative 04/19/2021 12:03 PM CDT EXAM DESCRIPTION: ?? XR ANKLE RIGHT 3 OR MORE VIEWS REASON FOR STUDY: ?? Patient states she was playing volleyball last night and twisted her right ankle - pain since Duration: 1 day TECHNIQUE: ?? AP, lateral, and oblique radiographic views acquired of the right ankle. COMPARISON: ?? None. FINDINGS: BONES/JOINTS: ??No acute fracture or dislocation. ??The ankle mortise is well seated without widening of the medial or lateral clear spaces. SOFT TISSUES: ??Soft tissue swelling is greatest laterally. OTHER: ??No other significant finding. IMPRESSION: ?? 1. ??No acute osseous abnormality is identified. THIS IS AN ELECTRONICALLY VERIFIED FINAL REPORT 04/19/2021 12:03 PM - Electronically signed by Chacho Gonzalez D.O. : D: ??04/19/2021 12:03 PM T: ??04/19/2021 12:03 PM Report ID: [id number] Reading Location: ??[id number] Procedure Note Chacho Gonzalez DO - 04/19/2021 EXAM DESCRIPTION: XR ANKLE RIGHT 3 OR MORE VIEWS REASON FOR STUDY: Patient states she was playing volleyball last nightand twisted her right ankle - pain since Duration: 1 day TECHNIQUE: AP, lateral, and oblique radiographic views acquired of theright ankle. COMPARISON: None. FINDINGS: BONES/JOINTS: No acute fracture or dislocation. The ankle mortise iswell seated without widening of the medial or lateral clear spaces. SOFT TISSUES: Soft tissue swelling is greatest laterally. OTHER: No other significant finding. IMPRESSION: 1. No acute osseous abnormality is identified. THIS IS AN ELECTRONICALLY VERIFIED FINAL REPORT 04/19/2021 12:03 PM - Electronically signed by Chacho Gonzalez D.O. : Report ID: [id number] Reading Location: [id number] [facility] BIN PACKER IMG XR PROCEDURES Final Resu lt documented in this encounter Visit Diagnoses Not on filedocumented in this encounter Additional Health Concerns Infection Onset Date Last Indicated Resolved Time MRSA Comment:Backloaded July 29, 2011 07/01/2011 07/01/201105/10 5:00 AM CDT documented as of this encounter Care Teams It Security Consultant Relationship Specialty Start Date End Date Kaley Tapia PA PCP - General 04/19/21 documented as of this encounter
--- OUTSIDE RECORDS SUMMARY | 2024-10-06 23:22 | XMS_ITS | Encounter Summary ---
Author Organization [facility] Healthcare Address [address] [place] [address] Care Team Providers Care Telephoner Name Role Phone Unavailable Primary Care Provider Unavailabl e Encounter Details Date Type Department Care Team (Late st Contact Info) Description 01/12/2010 1:28 PM CDT - 01/12/2010 11:59 PM CDT Hospital Encounter [facility] Social History Tobacco Use Types Packs/Day Years Used Date Smoking Tobacco: Never Assessed Comments Unknown Sex and Gender Information Value Date Recorded Sex Assigned at Not on file Legal Sex Female 9:13 AM LAB ASSOCIATE Gender Identity Not on file Sexual Orientation Not on file documented as of this encounter Plan of Treatment Not on file documented as of this encounter Visit Diagnoses Not on filedocumented in this encounter
--- OUTSIDE RECORDS SUMMARY | 2024-10-06 23:22 | XMS_ITS | Encounter Summary ---
Author Organization [facility] Healthcare Address [address] [place] [address] Care Team Providers Care Deicer Kit Assembler Name Role Phone Unavailable Primary Care Provider Unavailabl e Encounter Details Date Type Department Care Team (Late st Contact Info) Description 06/06/2007 8:07 PM CDT - 06/06/2007 11:19 PM CDT Hospital Encounter [facility] Gerry Ang MD [address] [place] [address] Social History Tobacco Use Types Packs/Day Years Used Date Smoking Tobacco: Never Assessed Comments Unknown Sex and Gender Information Value Date Recorded Sex Assigned at Not on file Legal Sex Female 9:13 AM CONCRETE SMOOTHER Gender Identity Not on file Sexual Orientation Not on file documented as of this encounter Plan of Treatment Not on file documented as of this encounter Visit Diagnoses Not on filedocumented in this encounter
--- OUTSIDE RECORDS SUMMARY | 2024-10-06 23:22 | XMS_ITS | Encounter Summary ---
Author Organization [facility] Healthcare Address [address] [place] [address] Care Team Providers Care Deputy Insurance Commissioner Name Role Phone Unavailable Primary Care Provider Unavailabl e Encounter Details Date Type Department Care Team (Late st Contact Info) Description 07/06/2010 10:56 AM CDT - 07/06/2010 11:26 AM CDT Hospital Encounter [facility] Jun Mohan MD [address] [place] [address] Jun Chong MD [address] [place] [address] Cellulitis and abscess of leg Social History Tobacco Use Types Packs/Day Years Used Date Smoking Tobacco: Never Assessed Comments Unknown Sex and Gender Information Value Date Recorded Sex Assigned at Not on file Legal Sex Female 9: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
--- OUTSIDE RECORDS SUMMARY | 2024-10-06 23:22 | XMS_ITS | Encounter Summary ---
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
--- OUTSIDE RECORDS SUMMARY | 2024-10-06 23:22 | XMS_ITS | Encounter Summary ---
Author Organization [facility] Healthcare Address [address] [place] [address] Care Team Providers Care Head Orthopedic Team Physician Name Role Phone Unavailable Primary Care Provider Unavailabl e Encounter Details Date Type Department Care Team (Late st Contact Info) Description 08/02/2008 5:45 PM CDT - 08/02/2008 11:59 PM CDT Hospital Encounter [facility] Social History Tobacco Use Types Packs/Day Years Used Date Smoking Tobacco: Never Assessed Comments Unknown Sex and Gender Information Value Date Recorded Sex Assigned at Not on file Legal Sex Female 9:13 AM MOLDER CLOSED MOLDS Gender Identity Not on file Sexual Orientation Not on file documented as of this encounter Plan of Treatment Not on file documented as of this encounter Visit Diagnoses Not on filedocumented in this encounter
--- OUTSIDE RECORDS SUMMARY | 2024-10-06 23:22 | XMS_ITS | Encounter Summary ---
Author Organization [facility] Healthcare Address [address] [place] [address] Care Team Providers Care Rn Bsn Name Role Phone Kaley Tapia Primary Care Pr ovider Reason for Visit * Auth/Cert Specialty Diagnoses / Procedures Referred By Contac t Referred To Contact Diagnoses 36 weeks gestation of Procedures na Referral ID Status Reason Start Date Expiration Date Visits Re quested Visits Authorized [id number] 1 1 Encounter Details Date Type Department Care Team (Late st Contact Info) Description 07/17/2022 11:00 AM CDT Anesthesia Event [facility] [address] [place] [id number] Greg Kohli MD [address] [place] [address] DR ROLON [address] [place] [address] Reji Ann Jr., COMMUNITY THEATER ACTOR [address] [place] [address] Anesthesia Record Procedure Summary Procedure Name Responsible Anesthesiologist Anesthesia Start Time Anesthesia Stop Time Labor Analgesia Greg Kohli MD 07/17/22 1 100 07/17/220 Events Date Time Event Comment 07/17/2022 1100 An Start 1100 Time out - Regional 1100 Face Time 1128 Epidural Placed 1134 Face Time 2230 Handoff to RN I completed my handoff to the receiving nurse during which we: 1. Patient identified 2. Responsible provider identified 3. Pertinent medical history reviewed 4. Procedure type and surgical course discussed 5. Intraoperative anesthetic management and any significant issues discussed 6. Expectations and concerns for postop period discussed 7. Questions solicited from receiving nurse 8. Patient disposition at the time of handoff: No value filed. 0 An Stop 07/18/2022 0336 Meds Name Total EPINEPHrine 1:200,000 - lidocaine 2 % PF 5 mL * Agents No agents on file. * Blood No blood administrations on file. Lines, Drains, and Airways Type Details Placement Removal Peripheral IV Placement Date: 07/16/22; Placement Time: 1999; Catheter Size: 18 G; Orientation: Left, Posterior; Location: Hand; Inserted by: Jacquelyn Orellana RN; Removal Date: 07/18/22; Removal Time: 851; Removal Reason: Therapy completed 07/16/221999 by Brissa Stallworth RN 07/18/22851 by Frieda Nam RN Intrauterine Pressure Catheter Placement Date: 07/17/22; Placement Time: 1010; Inserted by: Jacky Stallworth RN; Removal Date: 07/17/22; Removal Time: 2157; Removal Reason: Per protocol 07/17/22 1010 by Brissa Stallworth RN 07/17/222157 by John Yañez RN Epidural Placement Date: 07/17/22; Placement Time: 1132 (created via procedure documentation); 07/18/22; 0025 07/17/22 1132 by Reji Ann Jr., [facility] 07/18/22 0025 by John Yañez, YARI Urethral Catheter Placement Date: 07/17/22; Placement Time: 1315; Inserted by: Jacky Stallworth RN; Balloon Size: 10 mL; Urine Returned: Yes; Removal Date: 07/17/22; Removal Time: 2155; Removal Reason: Per protocol 07/17/22 1315 by Brissa Stallworth RN 07/17/222155 by John Yañez, YARI documented in this encounter Social History Tobacco Use Types Packs/Day Years Used Date Smoking Tobacco: Never AUDIT-C Answer Date Recorded Q1: How often do you have a drink containing alc ohol? 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 Gender Identity Not on file Sexual Orientation Not on file documented as of this encounter OR Notes * Anesthesia Postprocedure Evaluation - Reji Ann Jr., CRNA - 07/18/2022 3:34 AM CDT Patient: Mckayla Orellana Procedure Summary Date: 07/17/22 Room / Location: Anesthesia Start: 1100 Anesthesia Stop: 2229 Procedure: Labor Analgesia Diagnosis: Scheduled Providers: Responsible Provider: Greg Kohli MD Anesthesia Type: epidural ASA Status: 2 Anesthesia Type: epidural Last vitals BP 124/60 Pulse 82 Temp 37.4 ??C (99.4 ??F) (Temporal) Resp 20 SpO2 97% Anesthesia Post Evaluation Patient location during evaluation: PACU Patient participation: complete - patient participated Level of consciousness: fully awake Pain score: 0 Pain management: adequate Airway patency: adequate Cardiovascular status: acceptable Respiratory status: acceptable Hydration status: acceptable Pt is: normothermic Nausea/Vomiting status: none No notable events documented. * Anesthesia Procedure Notes - Reji Ann Jr., CRNA - 07/17/2022 11:30 AM CDTAssociated Order(s): Epidural Block Epidural Block Patient location: L&D End time: 07/17/2022 11:30 AM Reason for block: labor analgesia Staff: Placed by: COMMUNITY THEATER ACTOR: Reji Ann Jr., CRNA Procedure prep: Preprocedure checklist: patient identified, procedure contraindications assessed, procedure consentobtained, surgical consent, IV checked, risks, benefits and alternatives discussed, monitors and equipment checked and timeout performed Patient Position: left lateral decubitus (patient unable to tolerate sitting position. fhr demonstrates bradycardia with sitting position.) Procedure performed while patient: awake Monitoring: oximetry and blood pressure Prep solution: chlorhexadine/alcohol PPE: provider hat/mask, sterile gloves and sterile drape Skin infiltrated with lidocaine 1%: yes Epidural: Approach: midline Location: L3-4 Number of attempts:2 Epidural needle: Injection technique: IZZY saline Needle type: Tuohy Needle gauge: 17 G Needle length: 15 cm Loss of resistance: 12 cm Catheter: Catheter type: multi-orifice. Catheter at skin depth: 17 cm Negative aspiration of blood: no Negative aspiration of CSF: no Test dose: negative Assessment: Sensory level - left: full eval pending Sensory level - right: full eval pending Events: patient tolerated procedure well with no complications Additional comments: Epidural placed by Reji Ann CRNA * Anesthesia Preprocedure Evaluation - Reji Ann Jr., CRNA - 07/17/2022 9:57 AM CDT Images from the original note were not included. Anesthesia Evaluation Mckayla Orellana is a 26 y.o. female * No procedures listed * * No Diagnosis Codes entered * HISTORY Past Medical History Neurological Neuro/Psych system: negative Cardiovascular + Hypertension (pre-eclampsia) Respiratory + Asthma (last inhaler use over 30 days ago) Hepatic / Heme + History of anemia Gastrointestinal GI system: negative Renal / Renal/ system: negative Musculoskeletal/Pain Musculoskeletal/Pain system: negative Endocrine / Other + Obesity (BMI >30)- morbid obesity (BMI>40). Functional Capacity Functional capacity: 6-10 METs Day of Surgery assessments + Possibility of assessed - known to be . Patient Active Problem List Diagnosis ??? 36 weeks gestation of History reviewed. No pertinent past medical history. History reviewed. No pertinent surgical history. OB History 1 Para Term AB Living SAB IAB Ectopic Multiple Live Births No Known Allergies Taking? Last Dose Start Date End Date Provider albuterol (PROAIR RESPICLICK) 90 mcg/actuation inhaler -- 12/21/16 -- ProviderTeena MD cetirizine (ZyrTEC) 10 mg capsule -- 07/18/18 -- ProviderTeena MD Current Facility-Administered Medications: ??? butorphanol (STADOL) 1 mg/mL injection 1 mg, 1 mg, intravenous, Q2H PRN, 1 mg at 07/17/22912 ??? carboprost (HEMABATE) injection 250 mcg, 250 mcg, intramuscular, Once PRN ??? Carrier Fluids for Secondary Infusion - 0.9% Sodium Chloride, 30 mL, intravenous, PRN ??? Lactated Ringer's (LR) bolus 1,000 mL, 1,000 mL, intravenous, Once PRN, Last Rate: 1,000 mL/hr at 07/17/22917, 1,000 mL at 07/17/22917 ??? Lactated Ringer's (LR) bolus 1,000 mL, 1,000 mL, intravenous, TID PRN ??? lidocaine PF (XYLOCAINE) 10 mg/mL (1 %) preservative free injection 100 mg, 10 mL, infiltration, Once PRN ??? loperamide (IMODIUM) capsule 2 mg, 2 mg, oral, Once PRN ??? methylergonovine (METHERGINE) injection 0.2 mg, 0.2 mg, intramuscular, Once PRN ??? miSOPROStol (CYTOTEC) split tablet 25 mcg, 25 mcg, vaginal, Q4H JOSÉ, 25 mcg at 07/17/22 0542 ??? miSOPROStoL (CYTOTEC) tablet 800 mcg, 800 mcg, rectal, Once PRN ??? ondansetron ODT (ZOFRAN-ODT) disintegrating tablet 4 mg, 4 mg, oral, Q6H PRN OR ondansetron(ZOFRAN) injection 4 mg, 4 mg, intravenous, Q6H PRN ??? oxytocin (PITOCIN) injection 10 Units, 10 Units, intramuscular, Once PRN ??? sodium chloride 0.9% flush 0.5-20 mL, 0.5-20 mL, intra-catheter, Q8H JOSÉ ??? sodium chloride 0.9% flush 0.5-20 mL, 0.5-20 mL, intra-catheter, PRN ??? terbutaline (BRETHINE) injection 0.125 mg, 0.125 mg, intravenous, Once PRN OR terbutaline (BRETHINE) injection 0.25 mg, 0.25 mg, subcutaneous, Once PRN ??? tranexamic acid (CYKLOKAPRON) 1,000 mg/100 mL (10 mg/mL) in sodium chloride (premix) 1,000 mg, 1,000 mg, intravenous, Once PRN Social History Tobacco Use Smoking Status Never Smokeless Tobacco Not on file Alcohol Use: Not At Risk ??? Frequency of Alcohol Consumption: Never ??? Average Number of Drinks: Not on file ??? Frequency of Binge Drinking: Not on file Substance and Sexual Activity Drug Use Never History reviewed. No pertinent family history. PAT Physical Exam Airway Exam: Mallampati: II Cervical ROM: FROM TM distance: >4 Cardiovascular Exam: Rate: regular Rhythm: regular Pulmonary Exam: LCTA, bilat Dental Exam: Appears intact Abdominal exam: (gravid) Current state: Patient's current state is cooperative. Vitals: 07/17/22 0422 07/17/22 0730 07/17/22 0900 BP: 139/69 Pulse: 57 Resp: 20 Temp: 36.4 ??C (97.5 ??F) 36.1 ??C (96.9 ??F) PT: No results found for requested labs within last 720 hours. INR: No results found for requested labs within last 720 hours. APTT: No results found for requested labs within last 720 hours. Hgb A1C: No results found for requested labs within last 720 hours. CBC RBC: 07/16/2022: 3.92 M/cumm RDW: No results found for requested labs within last 720 hours. MCHC: 07/16/2022: 34.6 g/dL MCH: 07/16/2022: 28.1 pg MCV: 07/16/2022: 81.1 fL (L) Hct: 07/16/2022: 31.8 % (L) Hgb: 07/16/2022: 11.0 g/dL (L) WBC: 07/16/2022: 10.2 K/cumm (H) MPV: 07/16/2022: 11.3 fL Platelets: 07/16/2022: 256 K/cumm RDW CV: 07/16/2022: 13.2 % RDW Sd: 07/16/2022: 38.9 fL BMP Glucose: 07/16/2022: 85 mg/dL Calcium: 07/16/2022: 8.6 mg/dL Sodium: 07/16/2022: 134 mmol/L (L) Potassium: 07/16/2022: 3.7 mmol/L CO2: 07/16/2022: 23 mmol/L Chloride: 07/16/2022: 102 mmol/L BUN: 07/16/2022: 7 mg/dL (L) Creatinine: 07/16/2022: 0.50 mg/dL (L) DOS Physical Exam Medical history, medications, and allergies reviewed. Attestation: This PAT evaluation 07/17/2022. Airway Exam: Mallampati: II Cervical ROM: FROM TM distance: >4 Cardiovascular Exam: Rate: regular Rhythm: regular Pulmonary Exam: LCTA, bilat Dental Exam: Appears intact Abdominal Exam: Abdomen is soft. (gravid) Current state: Patient's current state is cooperative. Anesthesia Plan ASA 2 My patient is approved for the Anesthesia Controlled Medication protocol when under care of a COMMUNITY THEATER ACTOR Planned anesthesia: Epidural Informed Consent: Discussed plan with COMMUNITY THEATER ACTOR and attending. Anesthesia plan and risks discussed with patient. Consent and Attending signature: I and/or my designee have discussed the anesthesia plan, benefits, possible alternatives, parental presence at time of induction (if indicated), and clinically relevant risks that may include dental injury, unintentional awareness, and/or other complications. The patient and/or parent/legal guardian understand, and agree to proceed. All questions answered. documented in this encounter Miscellaneous Notes * Addendum Note - Reji Ann Jr., CRNA - 07/18/2022 3:36 AM CDT Addendum created 07/18/22 0336 by Reji Ann Jr., CRNA Review and Sign - Ready for Procedure, Review and Sign - Signed documented in this encounter Plan of Treatment Not on file documented as of this encounter Procedures Procedure Name Priority Date/Time Associated Diagnosis Comments ANESTHESIA EPIDURAL BLOCK Routine 07/17/2022 11:30 AM CDT documented in this encounter Results * Epidural Block (07/17/2022 11:30 AM CDT) Narrative Reji Ann Jr., CRNA - 07/17/2022 11:30 AM CDT Reji Ann Jr., CRNA ? 07/17/2022 11:32 AM Epidural Block Patient location: L&D End time: 07/17/2022 11:30 AM Reason for block: labor analgesia Staff: Placed by: COMMUNITY THEATER ACTOR: Reji Ann Jr., CRNA Procedure prep: Preprocedure checklist: patient identified, procedure contraindications assessed, procedure consent obtained, surgical consent, IV checked, risks, benefits and alternatives discussed, monitors and equipment checked and timeout performed Patient Position: left lateral decubitus (patient unable to tolerate sitting position. ??fhr demonstrates bradycardia with sitting position.) Procedure performed while patient: awake Monitoring: oximetry and blood pressure Prep solution: chlorhexadine/alcohol PPE: provider hat/mask, sterile gloves and sterile drape Skin infiltrated with lidocaine 1%: yes Epidural: Approach: midline Location: L3-4 Number of attempts:2 Epidural needle: Injection technique: IZZY saline Needle type: Tuohy Needle gauge: 17 G Needle length: 15 cm Loss of resistance: 12 cm Catheter: Catheter type: multi-orifice. Catheter at skin depth: 17 cm Negative aspiration of blood: no Negative aspiration of CSF: no Test dose: negative Assessment: Sensory level - left: full eval pending Sensory level - right: full eval pending Events: patient tolerated procedure well with no complications Additional comments: Epidural placed by Reji Ann CRNA Greg Kohli MD ANESTHESIA ORDERABLES Final Result documented in this encounter Visit Diagnoses Not on filedocumented in this encounter Administered Medications Inactive Administered Medications - up to 3 most recent administrations Medication Order MAR Action Action Date Dose Rate Site lidocaine-EPINEPHrine (XYLOCAINE with EPI) 2 %-1:200,000 preservative free injection epidural, As needed, Starting on 07/17/22 at 1128, Anesthesia Intra-op, Indications: Administration of Local AnesthesiaIndications:Administratio n of Local Anesthesia Given 07/17/2022 11:30 AM CDT 3 mL Given 07/17/2022 11:28 AM CDT 2 mL documented in this encounter Care Teams Rn Bsn Relationship Specialty Start Date End Date Kaley Tapai PA PCP - General 04/19/21 documented as of this encounter
--- OUTSIDE RECORDS SUMMARY | 2024-10-06 23:22 | XMS_ITS | Encounter Summary ---
Author Organization [facility] Healthcare Address [address] [place] [address] Care Team Providers Care Embedded Systems Designer Name Role Phone Kaley Tapia Primary Care Pr ovider Reason for Visit * Reason Comments Ankle Pain Encounter Details Date Type Department Care Team (Late st Contact Info) Description 04/19/2021 12:49 PM CDT - 04/19/2021 1:00 PM CDT Emergency [facility] Emergency Department [address] [place] [address] Sprain of right ankle, unspecified ligament, initial encounter (Primary Dx) Discharge Disposition: Discharge to home or self care Social History Tobacco Use Types Packs/Day Years Used Date Smoking Tobacco: Never Assessed Comments Unknown Sex and Gender Information Value Date Recorded Sex Assigned at Not on file 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 Gender Identity Not on file Sexual Orientation Not on file documented as of this encounter Last Filed Vital Signs Vital Sign Reading Time Taken Comments Blood Pressure 127/85 04/19/2021 11:35 AM CDT Pulse 75 04/19/2021 11:35 AM CDT Temperature 36.2 ??C (97.2 ??F) 04/19/2021 11:35 AM C DT Respiratory Rate 17 04/19/2021 11:35 AM CDT Oxygen Saturation 98% 04/19/2021 11:35 AM CDT Inhaled Oxygen Concentration - - Weight 106.1 kg (234 lb) 04/19/2021 11:35 AM CDT Height 147.3 cm (4' 10 ) 04/19/2021 11:35 AM CDT Body Mass Index 48.91 04/19/2021 11:35 AM CDT documented in this encounter Discharge Diagnoses Diagnosis Sprain of other ligament of right ankle, initial encounter - SPRAIN OF OTHER LIGAMENT OF RIGHT ANKLE, INITIAL ENCOUNTER Exposure to other specified factors, initial encounter - EXPOSURE TO OTHER SPECIFIED FACTORS, INITIAL ENCOUNTER Activity, unspecified - ACTIVITY, UNSPECIFIED Unspecified place or not applicable - UNSPECIFIED PLACE OR NOT APPLICABLE documented in this encounter Discharge Instructions * Attachments The following attachments cannot be sent through Care Everywhere. * Sprain, Ankle (Adult) (Jamaican) documented in this encounter Medications at Time of Discharge albuterol (PROAIR RESPICLICK) 90 mcg/actuation inhaler Inhale 2 puffs every 4 (four) hours as needed for wheezing 12/21/2016 cetirizine (ZyrTEC) 10 mg capsule Take 10 mg by mouth daily 07/18/2018 documented as of this encounter Discharge Disposition Disposition Code Departure Means Destination Discharge to home or self care documented in this encounter ED Notes * Salma Stevens, AND TAXI INSTRUCTOR BUS TROLLEY - 04/19/2021 12:52 PM CDT HPI Chief Complaint Patient presents with ??? Ankle Pain 25-year-old female presents to ED with complaints of right lateral ankle pain. Patient states last night she sprained her ankle. Denies any other injuries and has no other complaints. Denies any numbness or tingling. Patient has not done anything for her symptoms. Patient History: There are no problems to display for this patient. History reviewed. No pertinent past medical history. No past surgical history on file. History reviewed. No pertinent family history. Social History Tobacco Use ??? Smoking status: Not on file Substance Use Topics ??? Alcohol use: Not on file ??? Drug use: Not on file Social History Social History Narrative ??? Not on file Review of Systems Review of Systems Musculoskeletal: Positive for arthralgias and joint swelling. All other systems reviewed and are negative. Physical Exam ED Triage Vitals [04/19/21 1135] Temp Pulse Resp BP SpO2 36.2 ??C (97.2 ??F) 75 17 127/85 98 % Temp src Heart Rate Source Patient Position BP Location FiO2 (%) Temporal -- -- -- -- Physical Exam Vitals and nursing note reviewed. Constitutional: General: She is not in acute distress. Appearance: Normal appearance. She is not ill-appearing, toxic-appearing or diaphoretic. HENT: Head: Normocephalic and atraumatic. Right Ear: External ear normal. Left Ear: External ear normal. Eyes: Extraocular Movements: Extraocular movements intact. Conjunctiva/sclera: Conjunctivae normal. Cardiovascular: Rate and Rhythm: Normal rate. Pulses: Normal pulses. Pulmonary: Effort: Pulmonary effort is normal. No respiratory distress. Musculoskeletal: General: Swelling and tenderness (Right lateral ankle) present. Cervical back: Normal range of motion. Skin: General: Skin is warm and dry. Capillary Refill: Capillary refill takes less than 2 seconds. Neurological: General: No focal deficit present. Mental Status: She is alert and oriented to person, place, and time. Psychiatric: Mood and Affect: Mood normal. Behavior: Behavior normal. Thought Content: Thought content normal. Judgment: Judgment normal. MDM Medical Decision Making Differential Diagnosis or Management Options: Sprain Fracture Dislocation Critical care performed: No ED Course as of Apr 19 1253 Time: 04/19 1245 Comment: 1. No acute osseous abnormality is identified. By: Salma Stevens NP Final diagnoses: Sprain of right ankle, unspecified ligament, initial encounter Salma Stevens NP 04/19/21 1253 Cosigned by Maurizio Fink MD at 04/19/2021 1:02 PM CDT Associated attestation - Maurizio Fink MD - 04/19/2021 1:02 PM CDT ED Attestation I agree with management. * Lilly Blake, YARI - 04/19/2021 11:34 AM CDT Patient presents to the ed with c.o. right ankle pain. Patient states she was playing volleyball and twisted her right ankle. documented in this encounter Plan of Treatment [...] PM T: ??04/19/2021 12:03 PM Report ID: [id number] Reading Location: ??[id number] Procedure Note Chacho Gonzalez DO - 04/19/2021 [...] by Chacho Gonzalez D.O. : Report ID: [id number] Reading Location: [place] [address] Salma Stevens AND TAXI INSTRUCTOR BUS TROLLEY IMG XR PROCEDURES Final Resu lt documented in this encounter Visit Diagnoses Diagnosis Sprain of right ankle, unspecified ligament, initial encounter- Primary documented in this encounter Orders Nursing Count Last Ordered Date First Orde red Date APPLY GERMAN WRAP 1 04/19/2021 documented in this encounter Additional Health Concerns Infection Onset Date Last Indicated Resolved Time MRSA Comment:Backloaded July 29, 2011 07/01/2011 07/01/201105/10 5:00 AM CDT documented as of this encounter Care Teams Embedded Systems Designer Relationship Specialty Start Date End Date Kaley Tapia PA PCP - General 04/19/21 documented as of this encounter
--- OUTSIDE RECORDS SUMMARY | 2024-10-06 23:22 | XMS_ITS | Encounter Summary ---
Author Organization [facility] Healthcare Address [address] [place] [address] Care Team Providers Care Needlemaker Name Role Phone Kaley Tapia Primary Care Pr ovider Encounter Details Date Type Department Care Team (Late st Contact Info) Description 07/16/2022 11:59 PM CDT Anesthesia Event [facility] [address] [place] [id number] Reji Ann Jr., CRNA [address] [place] [address] Anesthesia Record Procedure Summary Procedure Name Responsible Anesthesiologist Anesthesia Start Time Anesthesia Stop Time OB INDUCTION Events No events on file. Meds * Agents No agents on file. * Blood No blood administrations on file. Lines, Drains, and Airways No LDAs on file. 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 Anesthesia Evaluation Mckayla Orellana is a 26 y.o. female * No surgery found * HISTORY Past Medical History Neurological Neuro/Psych [...] Exam: LCTA, bilat Dental Exam: Appears intact Current state: Patient's current state is cooperative. [...] bilat Dental Exam: Appears intact Abdominal Exam: (gravid) Current state: Patient's current state is cooperative. Anesthesia Plan ASA 2 My patient is approved for the Anesthesia Controlled Medication protocol when under care of a FELLER MACHINE OPERATOR Planned anesthesia: Epidural Informed Consent: Discussed plan with FELLER MACHINE OPERATOR and attending. Anesthesia plan and risks discussed [...] All questions answered. documented in this encounter Plan of Treatment Not on file documented as of this encounter Visit Diagnoses Not on filedocumented in this encounter Care Teams Needlemaker Relationship Specialty Start Date End Date Kaley Tapia PA PCP - General 04/19/21 documented as of this encounter
--- OUTSIDE RECORDS SUMMARY | 2024-10-06 23:22 | XMS_ITS | Encounter Summary ---
Author Organization 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
--- OUTSIDE RECORDS SUMMARY | 2024-10-06 23:22 | XMS_ITS | Encounter Summary ---
Author Organization [facility] Healthcare Address [address] [place] [address] Care Team Providers Care Export Documents Clerk Name Role Phone Unavailable Primary Care Provider Unavailabl e Encounter Details Date Type Department Care Team (Late st Contact Info) Description 05/27/2010 10:14 PM CDT - 05/27/2010 10:55 PM CDT Hospital Encounter [facility] Gerry Zee MD [address] [facility] [address] [address] [place] [address] Jun Chong MD [address] [place] [address] Acute upper respiratory infection Social History Tobacco Use Types Packs/Day Years Used Date Smoking Tobacco: Never Assessed Comments Unknown Sex and Gender Information Value Date Recorded Sex Assigned at Not on file 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
--- OUTSIDE RECORDS SUMMARY | 2024-10-06 23:22 | XMS_ITS | Encounter Summary ---
Author Organization [facility] Healthcare Address [address] [place] [address] Care Team Providers Care Punch Card Operator Name Role Phone Kaley Tapia Primary Care Pr ovider Reason for Visit * Reason Comments Scheduled Induction * Auth/Cert Specialty Diagnoses / Procedures Referred By Contac t Referred To Contact Diagnoses 36 weeks gestation of Procedures na Referral ID Status Reason Start Date Expiration Date Visits Re quested Visits Authorized [id number] 1 1 Encounter Details Date Type Department Care Team (Latest Contact Info) Description 07/16/2022 7:03 PM CDT - 07/19/2022 2:50 PM CDT Hospital Encounter [address] [id number] Greg Kohli MD [address] [place] [address] DR ROLON B [address] [id number] 36 weeks gestation of (Primary Dx) Discharge Disposition: Discharge to home or self care Social History Tobacco Use Types Packs/Day Years Used Date Smoking Tobacco: Never AUDIT-C Answer Date Recorded Q1: How often do you have a drink containing alc ohol? Never 07/16/2022 Average Number of Drinks Not on file 022 Frequency of Binge Drinking Not on file 04/2022 Comments No Sex and Gender Information Value Date Recorded Sex Assigned at Not on file Legal Sex Female 9:13 AM SECOND MATE Gender Identity Not on file Sexual Orientation Not on file documented as of this encounter Last Filed Vital Signs Vital Sign Reading Time Taken Comments Blood Pressure 148/86 07/19/2022 11:08 AM CDT Pulse 77 07/19/2022 9:10 AM CDT Temperature 36.5 ??C (97.7 ??F) 07/19/2022 9:10 AM CD T Respiratory Rate 16 07/19/2022 9:10 AM CDT Oxygen Saturation 96% 07/18/2022 7:45 AM CDT Inhaled Oxygen Concentration - - Weight 125.2 kg (276 lb) 07/17/2022 7:30 AM CDT Height 148.6 cm (4' 10.5 ) 07/17/2022 7:30 AM CD T Body Mass Index 56.7 07/17/2022 7:30 AM CDT documented in this encounter Discharge Instructions * Discharge Instr - Diet* Jacquelyn Orellana - 07/19/2022 2:10 PM CDT Return to regular home diet documented in this encounter Medications at Time [...] 1 07/19/2022 documented as of this encounter Ordered Prescriptions Prescription Sig Dispense Quantity Refills Last Filled Start Date End Date ibuprofen (ADVIL,MOTRIN) 600 mg tabletIndications:C ramps Take 1 tablet (600 mg total) by mouth every 6 (six) hours as needed for pain 30 tablet 1 07/19/2022 HYDROcodone-acetami nophen (NORCO) 5-325 mg per tabletIndications:P ain Take 1 tablet by mouth every 4 (four) hours as needed for pain 12 tablet 07/19/2022 documented in this encounter Discharge Disposition Disposition Code Departure Means Destination Discharge to home or self care documented in this encounter Progress Notes * Greg Kohli MD - 07/19/2022 9:50 AM CDT Post day # 2 ; induced for pre-eclampsia at 37 weeks Status post #1 S: feeling Ok, pain control adequate, good progress Bonding well with baby O: afebrile, Vitals stable, lochia appropriate Only one elevated pressure Chest: good air movement Cv: RRR Abd: soft, NT, fundus firm Ext: (-) A/P Doing well, no big issues Plan discharge today F/u in office in 2 days for BP check * Greg Kohli MD - 07/18/2022 11:56 AM CDT Post day # 1 Status post S: feeling Ok, pain control adequate, good progress Bonding well with baby O: afebrile, Vitals stable, lochia appropriate Chest: good air movement Cv: RRR Abd: soft, NT, fundus firm Ext: (-) A/P Doing well, no big issues Plan discharge tomorrow documented in this encounter Procedure Notes * Greg Kohli MD - 07/17/2022 10:12 PM CDT Procedures Delivery note Pre op dx 1) 37 week 2) pre-eclampsia Post op dx: Same Procedure: / 1st degree laceration and repair OB: Mirtha Kohli MD Anesth: epidural EBL: 250cc Comp: none Findings: delivery of vigorous male from vertex presentation APGARs and weight pending Placenta intact with 3v cord Mom and baby doing well. documented in this encounter Miscellaneous Notes * Plan of Care - Qiana Brandt RN - 07/19/2022 3:54 AM CDT Goals: Clinical Goals for the Shift: vss, pain control Summary: Problem: Activity: Goal: Will verbalize the importance of balancing activity with adequate rest periods Outcome: Progressing Problem: Lack of Knowledge: Goal: Will have increased knowledge of Care Outcome: Progressing Problem: Coping: Goal: Ability to cope will improve Outcome: Progressing Goal: Ability to identify and utilize available resources and services will improve Outcome: Progressing Problem: Life Cycle: Goal: Risk for hemorrhage will decrease Outcome: Progressing Goal: Chance of risk for complications during the period will decrease Outcome: Progressing Problem: Nutritional: Goal: Dietary intake will improve Outcome: Progressing Goal: Mother's verbalization of comfort with process will improve Outcome: Progressing Problem: Role Relationship: Goal: Ability to interact appropriately with will improve Outcome: Progressing Problem: Sensory: Goal: General experience of comfort will improve Outcome: Progressing * Plan of Care - Frieda Nam RN - 07/18/2022 4:18 PM CDT Problem: Activity: Goal: Will verbalize the importance of balancing activity with adequate rest periods Outcome: Progressing Problem: Lack of Knowledge: Goal: Will have increased knowledge of Care Outcome: Progressing Problem: Coping: Goal: Ability to cope will improve Outcome: Progressing Goal: Ability to identify and utilize available resources and services will improve Outcome: Progressing Problem: Life Cycle: Goal: Risk for hemorrhage will decrease Outcome: Progressing Goal: Chance of risk for complications during the period will decrease Outcome: Progressing Problem: Nutritional: Goal: Dietary intake will improve Outcome: Progressing Goal: Mother's verbalization of comfort with process will improve Outcome: Progressing Problem: Role Relationship: Goal: Ability to interact appropriately with will improve Outcome: Progressing Problem: Sensory: Goal: General experience of comfort will improve Outcome: Progressing Goals: Clinical Goals for the Shift: VSS, pain well managed Summary: VSS, pain well managed * Plan of Care - John Yañez RN - 07/18/2022 4:16 AM CDT Goals: Clinical Goals for the Shift: [place] adequately with labor progression, safe delivery, VSS. Summary: Successful vaginal delivery of a viable male infant. Apgars 9 and 9. Pt with a first degree perineal laceration, repaired. Labetalol 20 mg IV x1 dose given during labor for elevated pressures. Pt denies pain at this time and has not required prn pain meds. QBL less than 300 ml. Voiding without difficulty. Ambulating well independently. Pt and bonding well with infant. Will continue to monitor. Problem: Activity: Goal: Will verbalize the importance of balancing activity with adequate rest periods Outcome: Progressing Problem: Lack of Knowledge: Goal: Will have increased knowledge of Care Outcome: Progressing Problem: Coping: Goal: Ability to cope will improve Outcome: Progressing Goal: Ability to identify and utilize available resources and services will improve Outcome: Progressing Problem: Life Cycle: Goal: Risk for hemorrhage will decrease Outcome: Progressing Goal: Chance of risk for complications during the period will decrease Outcome: Progressing Problem: Nutritional: Goal: Dietary intake will improve Outcome: Progressing Goal: Mother's verbalization of comfort with process will improve Outcome: Progressing Problem: Role Relationship: Goal: Ability to interact appropriately with will improve Outcome: Progressing Problem: Sensory: Goal: General experience of comfort will improve Outcome: Progressing * Plan of Care - Brissa Stallworth RN - 07/17/2022 5:25 PM CDT Problem: Lack of Knowledge: Goal: Knowledge of disease or condition and prescribed therapeutic regimen will improve Outcome: Progressing Problem: Coping: Goal: Level of anxiety will decrease Outcome: Progressing Problem: Life Cycle: Goal: Will achieve delivery and avoid or minimize maternal and complications Outcome: Progressing Problem: Sensory: Goal: Pain level will decrease Outcome: Progressing Problem: Lack of Knowledge: Goal: Verbalization of understanding the information provided will improve Outcome: Progressing Problem: Coping: Goal: Ability to identify appropriate support needs for the childbearing process will improve Outcome: Progressing Goal: Ability to verbilize concerns and feelings about labor and delivery improve Outcome: Progressing Problem: Life Cycle: Goal: Ability to maintain clinical measurements within normal limits will improve Outcome: Progressing Goal: Ability to make normal progression through stages of labor will improve Outcome: Progressing Goal: Ability to effectively push during vaginal delivery will improve Outcome: Progressing Problem: Role Relationship: Goal: Ability to demonstrate positive interaction with the child will improve Outcome: Progressing Problem: Safety: Goal: Chance of risk for complications during labor and delivery will decrease Outcome: Progressing Problem: Sensory: Goal: Relief or control of pain from uterine contractions will improve Outcome: Progressing Goals: Clinical Goals for the Shift: Safe and Healthy Vaginal Delivery Summary: Patient is progressing well in labor. Bedside report given to Watson GREENBERG. Brissa Stallworth RN documented in this encounter Plan of Treatment Not on file documented as of this encounter Procedures Procedure Name Priority Date/Time Associated Diagnosis Comments CBC WITHOUT DIFFERENTIAL Routine 07/18/2022 7:44 AM CDT RAPID HIV 1/2 AG/AB COMBO STAT 07/16/2022 8:22 PM CDT EGFR STAT 07/16/2022 8:22 PM CDT URINALYSIS AND REFLEX TO MICROSCOPIC AND CULTURE Routine 07/16/2022 8:22 PM CDT ABO/RH Timed 07/16/2022 8:22 PM CDT URINALYSIS, MICROSCOPIC ONLY Routine 07/16/2022 8:22 PM CDT CBC WITHOUT DIFFERENTIAL STAT 07/16/2022 8:22 PM CDT ANTIBODY SCREEN Timed 07/16/2022 8:22 PM CDT HC ANTIBODY SCREEN RBC Timed 8:22 PM CDT URIC ACID Routine 07/16/2022 8:22 PM CDT LACTATE DEHYDROGENASE Routine 07/16/2022 8:22 PM CDT COMPREHENSIVE METABOLIC PANEL STAT 07/16/2022 8:22 PM CDT GROUP B STREPTOCOCCUS CULTURE Routine 06/29/2022 HIV 1/2 ANTIBODY PLUS P24 ANTIGEN Routine 05/04/2022 HIV 1/2 ANTIBODY PLUS P24 ANTIGEN Routine 01/20/2022 DRUGS OF ABUSE SCREEN, URINE WITHOUT CONFIRMATION Routine 01/20/2022 ABO/RH Routine 01/20/2022 RUBELLA IGG Routine 01/20/2022 RPR Routine 01/20/2022 HEPATITIS B SURFACE ANTIGEN Routine 01/20/2022 documented in this encounter Results * (ABNORMAL) CBC without differential (07/18/2022 7:44 AM CDT) WBC 17.4(H) 3.8 - 9.9 K/cumm [facility] ([facility]) Hgb 10.5(L) 11.9 - 15.5 g/dL [facility] ([facility]) Hct 30.9(L) 35.6 - 45.5 % [facility] ([facility]) Plt 243 150 - 400 K/cumm [facility] ([facility]) MPV 11.0 9.1 - 12.3 fL [facility] ([facility]) RBC 3.81(L) 3.90 - 5.20 M/cumm [facility] ([facility]) MCV 81.1(L) 81.3 - 96.4 fL [facility] ([facility]) MCH 27.6 27.1 - 33.3 pg [facility] ([facility]) MCHC 34.0 32.3 - 35.7 g/dL [facility] ([facility]) RDW CV 13.2 11.1 - 14.9 % [facility] ([facility]) RDW SD 38.5 35.7 - 48.1 fL [facility] ([facility]) NRBC abs 0.00 0.00 - 0.01 K/cumm [facility] ([facility]) Blood 07/18/2022 7:44 AM CDT 07/18/2022 7:57 AM CDT Greg Kohli MD LAB BLOOD ORDERABLES F inal Result Performing Organization Address City/Va Hospital/ZIP Co de Phone Number [facility] ([place]) 1 [facility] [place] [address] * Rapid HIV 1/2 Ag/Ab Combo (07/16/2022 8:22 PM CDT) Pathologist [facility] HIV 1/2 Ag/Ab Rapid Nonreactive Nonreactive [facility] ([place]) Blood 07/16/2022 8:22 PM CDT 07/17/2022 12:51 PM CDT Greg Kohli MD LAB BLOOD ORDERABLES F inal Result Performing Organization Address [facility] de Phone Number [facility] ([place]) 1 [facility] [place] [address] * eGFR (07/16/2022 8:22 PM CDT) Pathologist [facility] eGFR 131 mL/min/1. 73 m2 [facility] ([place]) Comment: Interpretive Data Reference Interval Normal ?>/= 90 mL/min/1.73m2 Mildly decreased* ? 60 - 89 mL/min/1.73m2 Mildly to moderately decreased ?45 - 59 mL/min/1.73m2 Moderately to severely decreased ??30 - 44 mL/min/1.73m2 Severely decreased ?15 - 29 mL/min/1.73m2 Kidney Failure ?< 15 ??mL/min/1.73m2 *Relative to young adult level Estimated glomerular filtration rate is determined by the 2020 CKD-EPI equation recommended by the National Kidney Foundation (A Unifying Approach to GFR Estimation: Recommendations of the NKF-ASK Task Force on Reassessing the Inclusion of Race in Diagnosing Kidney Disease, JASN 2020). The CKD-EPI equation should not be used for patients with unstable renal function and has not been validated in children and those over 70. Current interpretive data was last reviewed 2021. Blood 07/16/2022 8:22 PM CDT 07/16/2022 8:43 PM CDT Greg Kohli MD LAB BLOOD ORDERABLES F inal Result [facility] ([place]) 1 [facility] [place] [address] * (ABNORMAL) Urinalysis, microscopic only (07/16/2022 8:22 PM CDT) WBC, ur 0-5 0 - 5 /HPF [facility] ([facility]) RBC, ur 0-2 0 - 2 /HPF [facility] ([facility]) Epithelial cells, squamous, ur 11-20(A) 0 - 5 /HPF [facility] ([facility]) Bacteria, ur 2+(A) [facility] ([facility]) Mucous, ur Present(A) [facility] ([facility]) Culture Reflex Comment Reflex conditions for urine culture (WBC >10) not met. [facility] ([facility]) Urine, clean voided 07/16/2022 8:22 PM CDT 07/16/2022 8:43 PM CDT Greg Kohli MD LAB URINE ORDERABLES F inal Result [facility] ([facility]) 1 [facility] [place] [address] * Antibody screen (07/16/2022 8:22 PM CDT) Avis, indirect, Gel Interpretation Negative ABSC [facility] ([facility]) Blood 07/16/2022 8:22 PM CDT 07/16/2022 8:43 PM CDT Narrative [facility] ([facility]) - 07/16/2022 9:22 PM CDT Has the patient had Daratumumab or Isatuximab in the past 6 months?->Unknown Greg Kohli MD LAB BLOOD BANK TEST OR DERABLES Final Result Performing Organization Address [facility] de Phone Number [facility] ([facility]) [address] [place] [address] * ABO/Rh (07/16/2022 8:22 PM CDT) ABO/Rh O Positive [facility] ([facility] Blood 07/16/2022 8:22 PM CDT 07/16/2022 8:43 PM CDT Narrative [facility] ([facility]) - 07/16/2022 9:22 PM CDT Has the patient had Daratumumab or Isatuximab in the past 6 months?->Unknown Greg Kohli MD LAB BLOOD BANK TEST OR DERABLES Final Result Performing Organization Address [facility] de Phone Number [facility] ([facility]) 1 [facility] [place] [address] * (ABNORMAL) Urinalysis reflex to microscopic and culture Urine, clean voided (07/16/2022 8:22 PM CDT) Color, ur Yellow Yellow [facility] ([facility]) Clarity, ur Turbid(A) Clear [facility] ([facility]) Specific gravity, ur 1.030 1.003 - 1.030 [facility] ([facility]) pH, urine 6.5 [facility] ([facility]) Protein, ur ql 1+(A) Negative [facility] ([facility]) Glucose, ur ql Negative Negative [facility] ([facility]) Ketones, ur Negative Negative [facility] ([facility]) Bilirubin, ur Negative Negative [facility] ([facility]) Blood, ur Negative Negative [facility] ([facility]) Urobilinogen, ur <2.0 <2.0 mg/dL [facility] ([facility]) Nitrite, ur Negative Negative [facility] ([facility]) Leukocyte esterase, ur Negative Negative [facility] ([facility]) UA reflex comment Reflex to microscopic UA will be performed. [facility] ([facility]) Urine, clean voided 07/16/2022 8:22 PM CDT 07/16/2022 8:43 PM CDT Narrative [facility] ([facility]) - 07/16/2022 8:47 PM CDT ?? Urine pH is affected by diet, medications, systemic acid-base disturbances, and renal tubular function. ??pH may affect urinary stone formation. ??For example, urine pH below 6.0 may help reduce the tendency for calcium phosphate stones and pH greater than 6.0 may reduce the tendency for uric acid stone formation. Source: [facility] [employer]. Last revised 10-20-2017 Greg Kohli MD LAB MICROBIOLOGY - GEN ERAL ORDERABLES Final Result Performing Organization Address City/Va Hospital/ZIP Co de Phone Number [facility] ([place]) 1 [facility] [place] [address] * Lactate dehydrogenase (LD) (07/16/2022 8:22 PM CDT) Lactate dehydrogenase (LDH) 193 100 - 250 Units/L [facility] ([facility]) Blood 07/16/2022 8:22 PM CDT 07/16/2022 8:43 PM CDT Greg Kohli MD LAB BLOOD ORDERABLES F inal Result [facility] ([place]) 1 [facility] [place] [address] * Uric acid (07/16/2022 8:22 PM CDT) Uric acid 5.5 2.5 - 7.0 mg/dL [facility] ([facility]) Blood 07/16/2022 8:22 PM CDT 07/16/2022 8:43 PM CDT us Greg Kohli MD LAB BLOOD ORDERABLES F inal Result [facility] ([facility]) 1 [facility] Department [place] [address] * (ABNORMAL) Comprehensive metabolic panel (07/16/2022 8:22 PM CDT) Sodium 134(L) 135 - 145 mmol/L [facility] ([facility]) Potassium, pl 3.7 3.3 - 4.9 mmol/L [facility] ([facility]) Chloride 102 97 - 110 mmol/L [facility] ([facility]) CO2 23 22 - 32 mmol/L [facility] ([facility]) Anion gap 10 2 - 15 mmol/L [facility] ([facility]) BUN 7(L) 8 - 25 mg/dL [facility] ([facility]) Creatinine 0.50(L) 0.60 - 1.10 mg/dL [facility] ([facility]) Glucose 85 70 - 199 mg/dL [facility] ([facility]) Comment: Interpretive Data Fasting glucose >/= 126 mg/dl is diagnostic for diabetes. ?? Fasting is defined as no caloric intake for at least 8 hours. Fasting glucose between 100 mg/dl to 125 mg/dl is diagnostic of prediabetes. In a patient with classic symptoms of hyperglycemia or hyperglycemic crisis, a random glucose >/= 200 mg/dl is diagnostic for diabetes. In the absence of unequivocal hyperglycemia, results should be confirmed by repeat testing. The classification and Diagnosis of Diabetes Diabetes Care 2017;40 (Suppl. 1):S11. Current interpretive data was last revised 2017. Calcium 8.6 8.5 - 10.3 mg/dL [facility] ([facility]) Bilirubin, total <0.2 0.1 - 1.2 mg/dL [facility] ([facility]) Protein, pl 5.9(L) 6.5 - 8.5 g/dL [facility] ([facility]) Albumin 3.2(L) 3.5 - 5.0 g/dL [facility] ([facility]) Alk phos 103 40 - 130 Units/L [facility] ([facility]) ALT 9 7 - 45 Units/L [facility] ([facility]) AST 12 10 - 45 Units/L [facility] ([facility]) Blood 07/16/2022 8:22 PM CDT 07/16/2022 8:43 PM CDT us Greg Kohli MD LAB BLOOD ORDERABLES F inal Result [facility] ([facility]) 1 [facility] Department [place] [address] * (ABNORMAL) CBC without differential (07/16/2022 8:22 PM CDT) WBC 10.2(H) 3.8 - 9.9 K/cumm [facility] ([facility]) Hgb 11.0(L) 11.9 - 15.5 g/dL [facility] ([facility]) Hct 31.8(L) 35.6 - 45.5 % [facility] ([facility]) Plt 256 150 - 400 K/cumm [facility] ([facility]) MPV 11.3 9.1 - 12.3 fL [facility] ([facility]) RBC 3.92 3.90 - 5.20 M/cumm [facility] ([facility]) MCV 81.1(L) 81.3 - 96.4 fL [facility] ([facility]) MCH 28.1 27.1 - 33.3 pg [facility] ([facility]) MCHC 34.6 32.3 - 35.7 g/dL [facility] ([facility]) RDW CV 13.2 11.1 - 14.9 % [facility] ([facility]) RDW SD 38.9 35.7 - 48.1 fL [facility] ([facility]) NRBC abs 0.00 0.00 - 0.01 K/cumm [facility] ([facility]) Blood 07/16/2022 8:22 PM CDT 07/16/2022 8:43 PM CDT Greg Kohli MD LAB BLOOD ORDERABLES F inal Result [facility] [place]) 4 [facility] Department of Laboratories [place], [place] [id number] * Group B streptococcal culture (06/29/2022) SCRIBED Group B Strep Negative Greg Kohli MD LAB MICROBIOLOGY - GEN ERAL ORDERABLES Final Result * HIV 1/2 Antibody plus p24 Antigen Blood (05/04/2022) SCRIBED HIV P24 Negative Blood Greg Kohli MD LAB MICROBIOLOGY - GEN ERAL ORDERABLES Final Result * Rubella IgG antibody (01/20/2022) Rubella IgG Scribed Immune Blood Greg Kohli MD LAB MICROBIOLOGY - GEN ERAL ORDERABLES Final Result * RPR Blood (01/20/2022) SCRIBED RPR Non-Reacti ve Blood Greg Kohli MD LAB MICROBIOLOGY - GEN ERAL ORDERABLES Final Result * Hepatitis B Surface Antigen (01/20/2022) SCRIBED HBsAg Negative Blood Greg Kohli MD LAB MICROBIOLOGY - GEN ERAL ORDERABLES Final Result * Drugs of Abuse Screen, Urine without Confirmation (01/20/2022) SCRIBED Drug screen Negative Urine Greg Kohli MD LAB URINE ORDERABLES F inal Result * ABO/Rh (01/20/2022) SCRIBED ABO/Rh O+ Blood Greg Kohli MD LAB BLOOD BANK TEST OR DERABLES Final Result * HIV 1/2 Antibody plus p24 Antigen Blood (01/20/2022) SCRIBED HIV P24 Negative Blood Greg Kohli MD LAB MICROBIOLOGY - GEN ERAL ORDERABLES Final Result documented in this encounter Visit Diagnoses Diagnosis 36 weeks gestation of - Primary 36 weeks gestation of documented in this encounter Admitting Diagnoses Diagnosis 36 weeks gestation of documented in this encounter Administered Medications Inactive Administered Medications - up to 3 most recent administrations Medication Order MAR Action Action Date Dose Rate Site butorphanol (STADOL) 1 mg/mL injection - ADS Override Pull Starting on 07/17/22 at 0913, For 1 dose, Created by cabinet override butorphanol (STADOL) 1 mg/mL injection 1 mg 1 mg, intravenous, Administer over 1 Minutes, Every 2 hours PRN, 1st line for pain, Starting on 07/17/22 at 0901 Given 07/17/2022 9:13 AM CDT 1 mg fentaNYL-bupivacaine preservative free in 0.9% sodium chloride 2 mcg/mL- 0.1 % cassette (premix) Continuous Rate: 8 mL/hr, Patient Bolus Dose: 5 mL, Lockout Interval: 15 Minutes, epidural, Continuous, Starting on 07/17/22 at 1130, Until 07/17/22 at 2259, 100 mL, Indications: Pain, RoutineIndications:Pain New Syringe/Cartridge 07/17/2022 6:13 PM CDT 100 mL New Syringe/Cartridge 07/17/2022 11:25 AM CDT 100 mL labetaloL (NORMODYNE,TRANDATE) injection 20 mg 20 mg, intravenous, at 120 mL/hr, Administer over 2 Minutes, Once, On 07/17/22 at 1930, For 1 dose Given 07/17/2022 6:57 PM CDT 20 mg 120 mL/hr Lactated Ringer's (LR) bolus 1,000 mL 1,000 mL, intravenous, at 1,000 mL/hr, Administer over 1 Hours, Once as needed, for epidural placement per anesthesia request, Starting on Tue07/16/22 at 1917, For 1 dose, L&D Pre-Delivery, Administer only on provider request. Start 15 minutes prior to epidural placement New Bag 07/17/2022 9:18 AM CDT 1,000 mL 1000 mL/hr Lactated Ringer's (LR) bolus 1,000 mL 1,000 mL, intravenous, 3 times daily PRN, for nonreassuring heart rate, variable decelerations, or late deceleration., Starting on Tue07/16/22 at 1921, For 1 dose, L&D Pre-Delivery New Bag 07/17/2022 10:30 AM CDT 1,000 mL Lactated Ringer's (LR) infusion 125 mL/hr, intravenous, Continuous, Starting on 07/17/22 at 1245 New Bag 07/17/2022 8:16 PM CDT 125 mL/hr 125 mL/hr New Bag 07/17/2022 12:02 PM CDT 125 mL/hr 125 mL/hr lidocaine PF (XYLOCAINE) 10 mg/mL (1 %) preservative free injection 100 mg 100 mg (10 mL), infiltration, Once as needed, other, repair, Starting on Tue07/16/22 at 1917, For 1 dose, L&D Pre-Delivery Given 07/17/2022 10:03 PM CDT 100 mg miSOPROStol (CYTOTEC) 25 MCG split tablet - ADS Override Pull Starting on Tue07/16/22 at 2047, For 1 dose, Created by beverly override miSOPROStol (CYTOTEC) split tablet 25 mcg 25 mcg, vaginal, Every 4 hours scheduled, First dose on Tue07/16/22 at 2114 Given 07/17/2022 5:42 AM CDT 25 mcg Given 07/17/2022 1:29 AM CDT 25 mcg Given 07/16/2022 8:49 PM CDT 25 mcg ondansetron (ZOFRAN) injection 4 mg 4 mg, intravenous, Administer over 2 Minutes, Every 6 hours PRN, nausea, vomiting, if not tolerating PO, Starting on Tue07/16/22 at 1922, L&D Pre-Delivery, Indications: Nausea and VomitingIndications:Nausea and Vomiting Given 07/17/2022 5:59 PM CDT 4 mg ondansetron (ZOFRAN) injection 4 mg 4 mg, intravenous, Administer over 2 Minutes, Every 6 hours PRN, nausea, vomiting, if not tolerating PO, Starting on 07/17/22 at 2259, Indications: Nausea and VomitingIndications:Nausea and Vomiting ondansetron ODT (ZOFRAN-ODT) disintegrating tablet 4 mg 4 mg, oral, Every 6 hours PRN, nausea, vomiting, Starting on 07/17/22 at 2259, Indications: Nausea and VomitingIndications:Nausea and Vomiting oxytocin 30 unit/500 mL (0.06 unit/mL) in sodium chloride 0.9% (premix) solution 95-334 milliunits/min (95-334 mL/hr), 0.06 units/mL, intravenous, Continuous, Starting on Tue07/19/22 at 1445, Until Tue07/19/22 at 1844, Indications: Hemorrhage Prevention, 334 roverto-units/minutes for 30 minutes then decrease infusion to 95 roverto-units/min for 3.5 hours., RoutineIndications:Postpart um Hemorrhage Prevention oxytocin 30 unit/500 mL (0.06 unit/mL) in sodium chloride 0.9% (premix) solution 0.5-20 milliunits/min (0.5-20 mL/hr), 0.06 units/mL, intravenous, Titrated, Starting on 07/17/22 at 1400, Until 07/17/22 at 2259, Indications: Induction of Labor, Start at 2 roverto-units/min and increase by 2 roverto-units/minutes every 30 minutes until contraction frequency is every 2-3 minutes. Discontinue for distress or uterine hyperstimulation., RoutineIndications:Inductio n of Labor Rate/Dose Change 07/17/2022 4:40 PM CDT 4 milliunits/min 4 mL/hr Rate/Dose Change 07/17/2022 3:02 PM CDT 3 milliunits/min 3 mL/hr Rate/Dose Change 07/17/2022 2:14 PM CDT 4 milliunits/min 4 mL/hr vit-iron fum-folic ac tablet 1 tablet 1 tablet, oral, Daily, First dose on 07/18/22 at 0900, Begin when normal bowel activity resumes., Indications: Vitamin Deficiency PreventionIndications:Vitamin Deficiency Prevention Given 07/19/2022 11:16 AM CDT 1 tablet Given 07/18/2022 8:51 AM CDT 1 tablet terbutaline (BRETHINE) injection 0.25 mg 0.25 mg, subcutaneous, Once as needed, distress and uterine tachysystole if no IV access, Starting on Tue07/16/22 at 1917, For 1 dose, L&D Pre-Delivery, Notify physician immediately if administration is required., Indications: distress and uterine tachysystoleIndications: distress and uterine tachysystole Given 07/17/2022 10:40 AM CDT 0.25 mg Left Upper Arm documented in this encounter Historical Medications * This list may reflect changes made after this encounter. cetirizine (ZyrTEC) 10 mg capsule Take 10 mg by mouth daily 07/18/2018 albuterol (PROAIR RESPICLICK) 90 mcg/actuation inhaler Inhale 2 puffs every 4 (four) hours as needed for wheezing 12/21/2016 added in this encounter Active and Recently Administered Medications Times are shown in CDT. Scheduled Medication Order 07/17/2022 07/18/2022 07/19/2022 labetaloL (NORMODYNE,TRANDATE) injection 20 mg (COMPLETED) 20 mg, intravenous, at 120 mL/hr, Administer over 2 Minutes, Once, On 07/17/22 at 1930, For 1 dose 1857 (Given - Provider: John Yañez RN) miSOPROStol (CYTOTEC) split tablet 25 mcg (CANCELED) 25 mcg, vaginal, Every 4 hours scheduled, First dose on Tue07/16/22 at 2115 0129 (Given - Provider: Cher Melendrez, YARI)0542 (Given - Provider: Brissa Stallworth RN)0918 (Not Given - Provider: Brissa Stallworth RN - Reason: Order Discontinued) vit-iron fum-folic ac tablet 1 tablet 1 tablet, oral, Daily, First dose on 07/18/22 at 0900, Begin when normal bowel activity resumes., Indications: Vitamin Deficiency Prevention 0851 (Given - Provider: Frieda Nam, YARI) 1116 (Given - Provider: Jacquelyn Orellana) Continuous Medication Order 07/17/2022 07/18/2022 07/19/2022 fentaNYL-bupivacaine preservative free in 0.9% sodium chloride 2 mcg/mL- 0.1 % cassette (premix) (CANCELED) Continuous Rate: 8 mL/hr, Patient Bolus Dose: 5 mL, Lockout Interval: 15 Minutes, epidural, Continuous, Starting on 07/17/22 at 1130, Until 07/17/22 at 2259, 100 mL, Indications: Pain, Routine 1125 (New Syringe/Cartridge - Provider: Brissa Stallworth RN)1813 (New Syringe/Cartridge - Provider: John Yañez RN)2205 (Stopped (Dual Sign) - Provider: John Yañez RN) Lactated Ringer's (LR) infusion (CANCELED) 125 mL/hr, intravenous, Continuous, Starting on 07/17/22 at 1245 1202 (New Bag - Provider: Brissa Stallworth RN)2016 (New Bag - Provider: John Yañez RN)2259 (Due: Stopped - Provider: Greg Kohli MD) oxytocin 30 unit/500 mL (0.06 unit/mL) in sodium chloride 0.9% (premix) solution 95-334 milliunits/min (95-334 mL/hr), 0.06 units/mL, intravenous, Continuous, Starting on 07/19/22 at 1445, Until 07/19/22 at 1844, Indications: Hemorrhage Prevention, 334 roverto-units/minutes for 30 minutes then decrease infusion to 95 roverto-units/min for 3.5 hours., Routine 1445 (Due) oxytocin 30 unit/500 mL (0.06 unit/mL) in sodium chloride 0.9% (premix) solution (CANCELED) 0.5-20 milliunits/min (0.5-20 mL/hr), 0.06 units/mL, intravenous, Titrated, Starting on 07/17/22 at 1400, Until 07/17/22 at 2259, Indications: Induction of Labor, Start at 2 roverto-units/min and increase by 2 roverto-units/minutes every 30 minutes until contraction frequency is every 2-3 minutes. Discontinue for distress or uterine hyperstimulation., Routine 1334 (New Bag - Provider: Brissa Stallworth RN)1414 (Rate/Dose Change - Provider: Brissa Stallworth RN)1502 (Rate/Dose Change - Provider: Brissa Stallworth RN)1612 (Canceled Entry - Provider: Brissa Stallworth RN)1640 (Rate/Dose Change - Provider: Brissa Stallworth RN)2259 (Due: Stopped - Provider: Greg Kohli MD) PRN Medication Order 07/17/2022 07/18/2022 07/19/2022 benzocaine-menthoL (DERMOPLAST) 20-0.5 % topical spray 1 spray 1 spray, topical, As needed, other, perianal area for pain, Starting on 07/17/22 at 2259, Up to 6 times a day., Apply to affected area: perineum, Indications: Minor Skin Wound Pain 0020 (Due) butorphanol (STADOL) 1 mg/mL injection 1 mg (CANCELED) 1 mg, intravenous, Administer over 1 Minutes, Every 2 hours PRN, 1st line for pain, Starting on 07/17/22 at 0901 0913 (Given - Provider: Brissa Stallworth RN) HYDROcodone-acetaminophen (NORCO) 5-325 mg per tablet 1 tablet 1 tablet, oral, Every 4 hours PRN, 1st line for pain, may give 2 tablets, Starting on 07/17/22 at 2259, May give two tablets if needed, Indications: Pain ibuprofen (ADVIL,MOTRIN) tablet 600 mg 600 mg, oral, Every 6 hours PRN, other, cramping, Starting on 07/17/22 at 2259, Indications: Cramps Lactated Ringer's (LR) bolus 1,000 mL (COMPLETED) 1,000 mL, intravenous, at 1,000 mL/hr, Administer over 1 Hours, Once as needed, for epidural placement per anesthesia request, Starting on Tue07/16/22 at 1917, For 1 dose, L&D Pre-Delivery, Administer only on provider request. Start 15 minutes prior to epidural placement 0918 (New Bag - Provider: Brissa Stallworth, YARI) Lactated Ringer's (LR) bolus 1,000 mL (COMPLETED) 1,000 mL, intravenous, 3 times daily PRN, for nonreassuring heart rate, variable decelerations, or late deceleration., Starting on Tue07/16/22 at 1921, For 1 dose, L&D Pre-Delivery 1030 (New Bag - Provider: Brissa Stallworth, YARI) lidocaine PF (XYLOCAINE) 10 mg/mL (1 %) preservative free injection 100 mg (COMPLETED) 100 mg (10 mL), infiltration, Once as needed, other, repair, Starting on Tue07/16/22 at 191, For 1 dose, L&D Pre-Delivery 2203 (Given - Provider: John Yañez, YARI) ondansetron (ZOFRAN) injection 4 mg (CANCELED)(Linked Group 1) 4 mg, intravenous, Administer over 2 Minutes, Every 6 hours PRN, nausea, vomiting, if not tolerating PO, Starting on Tue07/16/22 at 1922, L&D Pre-Delivery, Indications: Nausea and Vomiting 1759 (Given - Provider: John Yañez, YARI) ondansetron (ZOFRAN) injection 4 mg(Linked Group 2) 4 mg, intravenous, Administer over 2 Minutes, Every 6 hours PRN, nausea, vomiting, if not tolerating PO, Starting on 07/17/22 at 2259, Indications: Nausea and Vomiting ondansetron ODT (ZOFRAN-ODT) disintegrating tablet 4 mg(Linked Group 2) 4 mg, oral, Every 6 hours PRN, nausea, vomiting, Starting on 07/17/22 at 2259, Indications: Nausea and Vomiting terbutaline (BRETHINE) injection 0.25 mg (COMPLETED)(Linked Group 3) 0.25 mg, subcutaneous, Once as needed, distress and uterine tachysystole if no IV access, Starting on Tue07/16/22 at 1917, For 1 dose, L&D Pre-Delivery, Notify physician immediately if administration is required., Indications: distress and uterine tachysystole 1039 (Due)1040 (Given - Provider: Brissa Stallworth, YARI) Linked Groups Order Group 1: ondansetron ODT (ZOFRAN-ODT) disintegrating tablet 4 mg (CANCELED) 4 mg, oral, Every 6 hours PRN, nausea, vomiting, Starting on Tue07/16/22 at 1922, L&D Pre-Delivery, Indications: Nausea and Vomiting Or ondansetron (ZOFRAN) injection 4 mg (CANCELED)Jump to med 4 mg, intravenous, Administer over 2 Minutes, Every 6 hours PRN, nausea, vomiting, if not tolerating PO, Starting on Tue07/16/22 at 1922, L&D Pre-Delivery, Indications: Nausea and Vomiting Group 2: ondansetron ODT (ZOFRAN-ODT) disintegrating tablet 4 mgJump to med 4 mg, oral, Every 6 hours PRN, nausea, vomiting, Starting on 07/17/22 at 2259, Indications: Nausea and Vomiting Or ondansetron (ZOFRAN) injection 4 mgJump to med 4 mg, intravenous, Administer over 2 Minutes, Every 6 hours PRN, nausea, vomiting, if not tolerating PO, Starting on 07/17/22 at 2259, Indications: Nausea and Vomiting Group 3: terbutaline (BRETHINE) injection 0.125 mg (COMPLETED) 0.125 mg, intravenous, Once as needed, distress and uterine tachysystole, Starting on Tue07/16/22 at 1917, For 1 dose, L&D Pre-Delivery, Notify physician immediately if administration is required., Indications: distress and uterine tachysystole Or terbutaline (BRETHINE) injection 0.25 mg (COMPLETED)Jump to med 0.25 mg, subcutaneous, Once as needed, distress and uterine tachysystole if no IV access, Starting on Tue07/16/22 at 1917, For 1 dose, L&D Pre-Delivery, Notify physician immediately if administration is required., Indications: distress and uterine tachysystole documented in this encounter Orders Medications Ordered That Home ht Not Have Been Administered Count Last Ordered Date First Ordered Date oxytocin 30 unit/500 mL (0.0 6 unit/mL) in sodium chloride 0.9% (premix) solution 1 07/19/2022 benzocaine-menthoL (DERMOPLA ST) 20-0.5 % topical spray 1 spray 1 07/17/2022 Carrier Fluids for Secondary Infusion - 0.9% Sodium Chloride 2 07/17/2022 07/16/2022 HYDROcodone-acetaminophen (N ORCO) 5-325 mg per tablet 1 tablet 1 07/17/2022 ibuprofen (ADVIL,MOTRIN) tablet 600 mg 1 labetaloL (NORMODYNE,TRANDAT E) injection 20 mg 1 07/17/2022 tczszay-mudhb-emoyzez (MMR) 1,000-12,500 TCID50/0.5 mL live vaccine 0.5 mL 1 07/17/2022 naloxone (NARCAN) 0.4 mg/mL injection 0.04-0.4 mg 1 07/17/2022 ondansetron (ZOFRAN) injection 4 mg 1 07/17 ondansetron ODT (ZOFRAN-ODT) disintegrating tablet 4 mg 2 07/17/2022 07/16/2022 sodium chloride 0.9% flush 0.5-20 mL 4 05/202207/16/2022 carboprost (HEMABATE) injection 250 mcg 1 1 loperamide (IMODIUM) capsule 2 mg 1 methylergonovine (METHERGINE ) injection 0.2 mg 1 07/16/2022 miSOPROStoL (CYTOTEC) tablet 800 mcg 1 04/2022 oxytocin (PITOCIN) injection 10 Units 1 04/2022 terbutaline (BRETHINE) injection 0.125 mg 1 07/16/2022 tranexamic acid (CYKLOKAPRON ) 1,000 mg/100 mL (10 mg/mL) in sodium chloride (premix) 1,000 mg 1 07/16/2022 Nursing Count Last Ordered Date First Orde red Date DISCHARGE ACTIVITY 3 07/19/2022 DISCHARGE CALL PROVIDER 3 07/19/2022 DISCHARGE INSTRUCTIONS 8 07/19/2022 Admission Count Last Ordered Date First Orde red Date ADMIT TO L&D INPATIENT 1 07/16/2022 Transfer Count Last Ordered Date First Orde red Date TRANSFER PATIENT TO NEW UNIT 2 07/17/2022 Discharge Count Last Ordered Date First Orde red Date DISCHARGE PATIENT 1 07/19/2022 CORE MEASURES Count Last Ordered Date First Ord ered Date REASON FOR NO VTE PROPHYLAXIS AT ADMISSION 2 07/17/2022 07/16/2022 documented in this encounter Care Teams Punch Card Operator Relationship Specialty Start Date End Date Kaley Tapia PA PCP - General 04/19/21 documented as of this encounter
--- OUTSIDE RECORDS SUMMARY | 2024-10-06 23:22 | XMS_ITS | Encounter Summary ---
Author Organization [facility] Healthcare Address [address] [place] [address] Care Team Providers Care Vendor Analyst Name Role Phone Kaley Tapia Primary Care Pr ovider Reason for Visit * Reason Comments Problem Pt lost mucous plug at home, occasional contractions, instructed to come in by accreditation manager OB Encounter Details Date Type Department Care Team (Latest Contact Info) Description 07/12/2022 8:52 PM CDT - 07/12/2022 11:35 PM CDT Hospital Encounter [facility] [address] [id number] Greg Kohli MD [address] [place] [address] DR ROLON [address] [facility] [address] [place] [address] Discharge Disposition: Discharge to home or self care Social History Tobacco Use Types Packs/Day Years Used Date Smoking Tobacco: Never Assessed Comments Yes Sex and Gender Information Value Date Recorded Sex Assigned at Not on file 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 * Attachments The following attachments cannot be sent through Care Everywhere. * Preeclampsia (Discharge Care) (Lao) documented in this encounter Medications at Time of Discharge albuterol (PROAIR RESPICLICK) 90 mcg/actuation inhaler Inhale 2 puffs every 4 (four) hours as needed for wheezing 12/21/2016 cetirizine (ZyrTEC) 10 mg capsule Take 10 mg by mouth daily 07/18/2018 documented as of this encounter Discharge Disposition Disposition Code Departure Means Destination Discharge to home or self care documented in this encounter Nursing Notes * Qiana Brandt RN - 07/12/2022 11:[address] Persaud updated with lab results and recent blood pressures. Discharge order received with instructions to return 07/13/22 for nst and 2nd steroid injection. Labor and preeclampsia precautions reviewed with pt. Pt verbalized understanding. Pt discharged home in stable condition. Pt ambulatory off floor. Maldonado Brandt RN documented in this encounter Plan of Treatment Not on file documented as of this encounter Procedures Procedure Name Priority Date/Time Associated Diagnosis Comments EGFR STAT 07/12/2022 10:05 PM CDT DIFFERENTIAL AUTO STAT 07/12/2022 10: 05 PM CDT CBC WITH AUTO DIFFERENTIAL STAT 07/12/2022 10:05 PM CDT URIC ACID STAT 07/12/2022 10:05 PM CDT LACTATE DEHYDROGENASE STAT 07/12/2022 10:05 PM CDT COMPREHENSIVE METABOLIC PANEL STAT 07/12/2022 10:05 PM CDT URINALYSIS AND REFLEX TO MICROSCOPIC AND CULTURE STAT 07/12/2022 9:01 PM CDT PROTEIN / CREATININE RATIO, URINE, RANDOM STAT 07/12/2022 9:01 PM CDT URINALYSIS, MICROSCOPIC ONLY STAT 07/12/2022 9:01 PM CDT documented in this encounter Results * eGFR (07/12/2022 10:05 PM CDT) eGFR 130 mL/min/1. 73 m2 [facility] ([facility]) Comment: Interpretive Data Reference Interval Normal ?>/= [...] of Race in Diagnosing Kidney Disease, JASN 202). The CKD-EPI equation should not be used for patients with unstable renal function and has not been validated in children and those over 70. Current interpretive data was last reviewed 2021. Blood 07/12/2022 10:0 5 PM CDT 07/12/2022 10:09 PM CDT Blu Persaud MD LAB BLOOD ORDERABLES Final Result [facility] ([facility]) [address] [facility] Department [place] [address] * Differential, auto (07/12/2022 10:05 PM CDT) Neutrophil abs 6.0 1.7 - 6.5 K/cumm [facility] ([place]) Imm gran abs 0.1 0.0 - 0.1 K/cumm [facility] ([facility]) Lymphocyte abs 2.2 0.8 - 3.3 K/cumm [facility] ([facility]) Monocyte abs 0.7 0.2 - 0.8 K/cumm [facility] ([facility]) Eosinophil abs 0.4 0.0 - 0.5 K/cumm [facility] ([facility]) Basophil abs 0.0 0.0 - 0.1 K/cumm [facility] ([facility]) Neutrophil pct 63.6 % [facility] ([facility]) Comment: Interpretive Data Percent cell count reference ranges are not reported, since discordance with absolute values may lead to misinterpretation of CBC data. Current Interpretive Data was last revised on 2018. Imm gran pct 0.6 % [facility] ([facility]) Comment: Interpretive Data Percent cell count reference ranges are not reported, since discordance with absolute values may lead to misinterpretation of CBC data. Current Interpretive Data was last revised on 2018. Lymphocyte pct 23.6 % [facility] ([facility]) Comment: Interpretive Data Percent cell count reference ranges are not reported, since discordance with absolute values may lead to misinterpretation of CBC data. Current Interpretive Data was last revised on 2018. Monocyte pct 7.5 % [facility] ([facility]) Comment: Interpretive Data Percent cell count reference ranges are not reported, since discordance with absolute values may lead to misinterpretation of CBC data. Current Interpretive Data was last revised on 2018. Eosinophil pct 4.4 % [facility] ([facility]) Comment: Interpretive Data Percent cell count reference ranges are not reported, since discordance with absolute values may lead to misinterpretation of CBC data. Current Interpretive Data was last revised on 2018. Basophil pct 0.3 % [facility] ([facility]) Comment: Interpretive Data Percent cell count reference ranges are not reported, since discordance with absolute values may lead to misinterpretation of CBC data. Current Interpretive Data was last revised on 2018. Blood 07/12/2022 10:0 5 PM CDT 07/12/2022 10:09 PM CDT Blu Persaud MD LAB BLOOD ORDERABLES Final Result [facility] ([facility]) 1 [facility] [employer] [place] [address] * Lactate dehydrogenase (LD) (07/12/2022 10:05 PM CDT) Lactate dehydrogenase (LDH) 192 100 - 250 Units/L [facility] ([place]) Blood 07/12/2022 10:0 5 PM CDT 07/12/2022 10:09 PM CDT Blu Persaud MD LAB BLOOD ORDERABLES Final Result Performing Organization Address [facility] Co de Phone Number [facility] ([place]) 1 [facility] [place] [address] * Uric acid (07/12/2022 10:05 PM CDT) Uric acid 4.9 2.5 - 7.0 mg/dL [facility] ([place]) Blood 07/12/2022 10:0 5 PM CDT 07/12/2022 10:09 PM CDT Blu Persaud MD LAB BLOOD ORDERABLES Final Result Performing Organization Address [facility] Co de Phone Number [facility] ([place]) 1 [facility] [place] [address] * (ABNORMAL) Comprehensive metabolic panel (07/12/2022 10:05 PM CDT) Sodium 133(L) 135 - 145 mmol/L [facility] ([facility]) Potassium, pl 3.4 3.3 - 4.9 mmol/L [facility] ([facility]) Chloride 103 97 - 110 mmol/L [facility] ([facility]) CO2 20(L) 22 - 32 mmol/L [facility] ([facility]) Anion gap 10 2 - 15 mmol/L [facility] ([place]) BUN 7(L) 8 - 25 mg/dL [facility] ([facility]) Creatinine 0.51(L) 0.60 - 1.10 mg/dL [facility] ([facility]) Glucose 88 70 - 199 mg/dL [facility] ([place]) [...] interpretive data was last revised 2017. Calcium 8.5 8.5 - 10.3 mg/dL [facility] ([facility]) Bilirubin, total <0.2 0.1 - 1.2 mg/dL [facility] ([place]) Protein, pl 5.8(L) 6.5 - 8.5 g/dL [facility] ([place]) Albumin 3.2(L) 3.5 - 5.0 g/dL [facility] ([facility]) Alk phos 100 40 - 130 Units/L [facility] ([place]) ALT 9 7 - 45 Units/L [facility] ([facility]) AST 12 10 - 45 Units/L [facility] ([facility]) Blood 07/12/2022 10:0 5 PM CDT 07/12/2022 10:09 PM CDT us Blu Persaud MD LAB BLOOD ORDERABLES Final Result [facility] Department [place] [address] * (ABNORMAL) CBC with auto differential (07/12/2022 10:05 PM CDT) Pathologist [facility] WBC 9.4 3.8 - 9.9 K/cumm [facility] ([facility]) Hgb 11.1(L) 11.9 - 15.5 g/dL [facility] ([place]) Hct 32.4(L) 35.6 - 45.5 % [facility] ([facility]) Plt 268 150 - 400 K/cumm [facility] ([place]) MPV 10.9 9.1 - 12.3 fL [facility] ([place]) RBC 3.94 3.90 - 5.20 M/cumm [facility] ([place]) MCV 82.2 81.3 - 96.4 fL [facility] ([place]) MCH 28.2 27.1 - 33.3 pg [facility] ([facility]) MCHC 34.3 32.3 - 35.7 g/dL [facility] ([facility]) RDW CV 13.2 11.1 - 14.9 % [facility] ([facility]) RDW SD 39.4 35.7 - 48.1 fL [facility] NRBC abs 0.00 0.00 - 0.01 K/cumm [facility] ([facility]) Blood 07/12/2022 10:0 5 PM CDT 07/12/2022 10:09 PM CDT Blu Persaud MD LAB BLOOD ORDERABLES Final Result [facility] ([facility]) [address] [facility] Department [place] [address] * (ABNORMAL) Protein / creatinine ratio, urine, random (07/12/2022 9:01 PM CDT) Pathologist [facility] Protein, ur, quant 56.0 mg/dL [facility] ([facility]) Comment: Interpretive Data No reference range established. Current interpretive data was last revised 2019. Creatinine Ur 177.5 mg/dL [facility] ([facility]) Comment: Interpretive Data No reference range established. Current interpretive data was last revised 2019. Protein/creatinin e ratio 315.5(H) 0.0 - 180.0 mg/g CR [facility] ([facility]) Urine 07/12/2022 9:01 PM CDT 07/12/2022 10:44 PM CDT Blu Persaud MD LAB URINE ORDERABLES Final Result Performing Organization Address [facility] de Phone Number [facility] ([facility]) 1 [facility] [employer] [place] [address] * (ABNORMAL) Urinalysis, microscopic only (07/12/2022 9:01 PM CDT) WBC, ur 0-5 0 - 5 /HPF [facility] RBC, ur 0-2 0 - 2 /HPF [facility] Epithelial cells, squamous, ur 6-10(A) 0 - 5 /HPF [facility] ([facility]) Bacteria, ur 1+(A) [facility] ([facility]) Mucous, ur Present(A) [facility] ([place]) Culture Reflex Comment Reflex conditions for urine culture (WBC >10) not met. [facility] ([facility] Urine, clean voided 07/12/2022 9:01 PM CDT 07/12/2022 9:07 PM CDT Blu Persaud MD LAB URINE ORDERABLES Final Result Performing Organization Address [facility] de Phone Number [facility] ([facility]) 1 [facility] [employer] [place] [address] * (ABNORMAL) Urinalysis reflex to microscopic and culture Urine, clean voided (07/12/2022 9:01 PM CDT) Color, ur Yellow Yellow [facility] ([facility]) Clarity, ur Turbid(A) Clear [facility] ([facility]) Specific gravity, ur 1.029 1.003 - 1.030 [facility] ([facility]) pH, urine 6.0 [facility] ([facility]) Protein, ur ql 1+(A) Negative [facility] ([facility]) Glucose, ur ql Negative Negative [facility] ([facility]) Ketones, ur 1+(A) Negative [facility] ([facility]) Bilirubin, ur Negative Negative [facility] ([facility]) Blood, ur Negative Negative [facility] ([facility]) Urobilinogen, ur 2.0(A) <2.0 mg/dL [facility] ([facility]) Nitrite, ur Negative Negative [facility] ([facility]) Leukocyte esterase, ur 1+(A) Negative [facility] ([facility]) UA reflex comment Reflex to microscopic UA will be performed. [facility] ([facility]) Urine, clean voided 07/12/2022 9:01 PM CDT 07/12/2022 9:07 PM CDT Narrative [facility] ([facility]) - 07/12/2022 9:10 PM CDT ?? Urine pH is affected by diet, medications, systemic acid-base disturbances, and renal tubular function. ??pH may affect urinary stone formation. ??For example, urine pH below 6.0 may help reduce the tendency for calcium phosphate stones and pH greater than 6.0 may reduce the tendency for uric acid stone formation. Source: [employer]. Last revised 10-20-2017 us Blu Persaud MD LAB MICROBIOLOGY - GENERAL ORDERABLES Final Result [facility] ([place]) [address] [facility] Department [place] [address] documented in this encounter Visit Diagnoses Not on filedocumented in this encounter Administered Medications Inactive Administered Medications - up to 3 most recent administrations Medication Order MAR Action Action Date Dose Rate Site betamethasone (CELESTONE) injection 12 mg 12 mg, intramuscular, Once, On 07/12/22 at 2245, For 1 dose Given 07/12/2022 10:10 PM CDT 12 mg Left Anterior Thigh documented in this encounter Active and Recently Administered Medications Times are shown in CDT. Scheduled Medication Order 07/10/2022 07/11/2022 07/12/2022 betamethasone (CELESTONE) injection 12 mg (COMPLETED) 12 mg, intramuscular, Once, On 07/12/22 at 2245, For 1 dose 2210 (Given - Provid er: Qiana Brnadt RN) documented in this encounter Orders Medications Ordered That Home ht Not Have Been Administered Count Last Ordered Date First Ordered Date betamethasone (CELESTONE) injection 12 mg 1 07/12/2022 Discharge Count Last Ordered Date First Orde red Date DISCHARGE PATIENT 1 07/12/2022 documented in this encounter Care Teams Vendor Analyst Relationship Specialty Start Date End Date Kaley Tapia PA PCP - General 04/19/21 documented as of this encounter
--- OUTSIDE RECORDS SUMMARY | 2024-10-06 23:22 | XMS_ITS | Encounter Summary ---
Author Organization 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 - 10/09/2010 11:59 PM PRODUCE MANAGER Hospital Encounter [facility] Tom Betancourt MD [address] [place], [place] [id number] Encounter for other specified aftercare; Cellulitis and abscess of trunk Social History Tobacco Use Types Packs/Day Years Used Date Smoking Tobacco: Never Assessed Comments Unknown Sex and Gender Information Value Date Recorded Sex Assigned at Not on file Legal Sex Female 9:13 AM 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
--- OUTSIDE RECORDS SUMMARY | 2024-10-06 23:22 | XMS_ITS | Encounter Summary ---
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
--- OUTSIDE RECORDS SUMMARY | 2024-10-06 23:22 | XMS_ITS | Encounter Summary ---
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
--- OUTSIDE RECORDS SUMMARY | 2024-10-06 23:22 | XMS_ITS | Encounter Summary ---
Author Organization [facility] Healthcare Address [address] [place] [address] Care Team Providers Care Mobile Security Architect Name Role Phone Unavailable Primary Care Provider Unavailabl e Encounter Details Date Type Department Care Team (Late st Contact Info) Description 03/30/2008 4:05 AM CDT - 03/30/2008 5:42 AM CDT Hospital Encounter [facility] Zaid Gould MD [address] [place] [address] Jun Chong MD [address] [place] [address] Social History Tobacco Use Types Packs/Day Years Used Date Smoking Tobacco: Never Assessed Comments Unknown Sex and Gender Information Value Date Recorded Sex Assigned at Not on file 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
--- OUTSIDE RECORDS SUMMARY | 2024-10-06 23:22 | XMS_ITS | Encounter Summary ---
Author Organization [facility] Healthcare Address [address] [place] [address] Care Team Providers Care Application Internship Name Role Phone Kaley Tapia Primary Care Pr ovider Reason for Visit * Reason Comments Headache Hypertension Encounter Details Date Type Department Care Team (Latest Contact Info) Description 07/13/2022 3:52 PM CDT - 07/13/2022 6:03 PM CDT Hospital Encounter [facility] [address] [place] [address] Greg Kohli MD [address] [place] [address] [address]ON [address] [address] Discharge Disposition: Discharge to home or self care Social History Tobacco Use Types Packs/Day Years Used Date Smoking Tobacco: Never Tobacco Cessation:Counseling Given: Not Answered Comments Yes Sex and Gender Information Value Date Recorded Sex Assigned at Not on file 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 * at 35 to 38 Weeks (Discharge Care) ([place]) documented in this encounter Medications at Time [...] MAR Action Action Date Dose Rate Site acetaminophen (TYLENOL) tablet 1,000 mg 1,000 mg, oral, Once, On Tue07/13/22 at 1700, For 1 dose Given 07/13/2022 4:25 PM CDT 1,000 mg betamethasone (CELESTONE) injection 12 mg 12 mg, intramuscular, Once, On Tue07/13/22 at 1730, For 1 dose Given 07/13/2022 5:50 PM CDT 12 mg Left Dorsogluteal/Butt ock documented in this encounter Active and Recently Administered Medications Times are shown in CDT. Scheduled Medication Order 07/11/2022 07/12/2022 07/13/2022 acetaminophen (TYLENOL) tablet 1,000 mg (COMPLETED) 1,000 mg, oral, Once, On Tue07/13/22 at 1700, For 1 dose 1625 (Given - Provid er: Erica Posey RN) betamethasone (CELESTONE) injection 12 mg (COMPLETED) 12 mg, intramuscular, Once, On Tue07/13/22 at 1730, For 1 dose 1750 (Given - Provid er: Rupinder Galan RN) documented in this encounter Orders Discharge Count Last Ordered Date First Orde red Date DISCHARGE PATIENT 1 07/13/2022 documented in this encounter Care Teams Application Internship Relationship Specialty Start Date End Date Kaley Tapia PA PCP - General 04/19/21 documented as of this encounter
== END 2024-10-03 10:00 | disposition home or self-care (01) | DRG 788 ==
LOC: ANHLDR 16:50 → ANHOBPP 09-30 22:57 → ANHOB2 10-01 07:43
PROVIDERS: Obstetrics & Gynecology; Admitting Provider Obstetrics & Gynecology; PCP Physician Assistant; Visit Provider Obstetrics & Gynecology
PROC: 10D00Z1 Extraction of Products of Conception, Low, Open Approach (ICD-10-PCS; CPT 59514; principal; 2024-09-30 18:40)
DX: O13.4 Gestational [pregnancy-induced] hypertension without significant proteinuria, complicating childbirth (principal); Z37.0 Single live birth; Z3A.38 38 weeks gestation of pregnancy; O36.8330 Maternal care for abnormalities of the fetal heart rate or rhythm, third trimester, not applicable or unspecified
CPT/HCPCS: 36415; 80053; 80307; 84550; 85025; 86592; 86703; 86850; 86900; 86901; 88307; A9270; G0432; J0456; J0690; J1171; J1200; J1885; J1940; J2003; J2274; J2405; J2590; J2704; J2795; J3010; J7120

== ENCOUNTER 2025-09-02 13:07 | Outpatient (CLI) | payer OTHER, MEDICAID, SELFPAY ==
--- NOTE | ~2025-09-02 | XR_ITS ---
EXAMINATION: XR knee RT min 4V, 09/02/2025 13:10 SOFA INSPECTOR HISTORY: fall 8 months ago, rt anterior knee pain COMPARISON: No comparisons available. Findings: No acute fracture or malalignment. No significant degenerative changes. Soft tissues unremarkable. Impression: No acute fracture or malalignment. Reviewed, dictated and finalized at location P. INSPECTOR Impression: No acute fracture or malalignment.
--- OUTSIDE RECORDS SUMMARY | 2025-09-02 15:18 | XMS_ITS | Data Portability ---
Author Organization [place] - [facility] [employer], Main Office Address [address] [place] [address] Assessment No assessment recorded. Plan of Treatment Reminders Order Date Submit Date Provider Last Modified By Organization Details Last Modified Time Details Appointments None recorded. Lab lipid panel, serum 2022 023 [email or web address] 146 [facility], [address], [place], [address], 3 16:15:21 HbA1c (hemoglobin A1c), blood 2022 023 [email or web address] 146 [facility], [address], [place], [address], 3 16:15:21 TSH + free T4, serum 2022 023 [email or web address] 146 [facility], [address], [place], [address], 3 16:15:20 vitamin B12 + folate, serum or blood 2022 023 [email or web address] 146 [facility], [address], [place], [address], 3 16:15:20 iron + TIBC + ferritin, serum 2022 023 [email or web address] 146 [facility], [address], [place], [address], 3 16:15:20 CMP, serum or plasma 2022 023 [email or web address] [address] [facility], [address], [place], [address], 3 16:15:20 CBC w/ auto diff 2022 023 SLATER [facility], [address], [place], [address], 3 09:29:48 vitamin D, 25-hydroxy, total, serum 2022 023 [facility] 146 [facility], [address], [place], [address], 3 16:15:21 Referral None recorded. Procedures upper endoscopy procedure (EGD) (PROC) 2022 023 BEATRICE Valles MD, [address], [address], [place], [address], 3 14:10:56 Surgeries None recorded. Imaging RF, upper gastrointes tinal tract, w/ contrast PO 2022 023 [facility] (Imaging), [address], [place], [address], 3 15:10:48 US, abdomen, complete [email or web address] (Imaging), [address], [place], [address], 3 15:07:55 Medication Orders pantoprazol e 40 mg tablet,sajan yed release 2022 023 [id number] [facility], [address], [place], [address], 3 20:50:04 Patient TargetsNo targets recorded. Patient InstructionsNo instructions recorded. Reason for Referral None Reported. Results Created Date Observation Date Name Description Value Unit Range Abnormal Flag Note LastModifiedBy Organization Detail LastModifiedTime 11/20/19 22 11/15/2021 XR, forea rm No observ ation record ed. [id number] [facility] [address], [place], [address], 12/08/2022 18:04:48 01/09/20 22 10/23/2021 colon oscop y proce dure (PROC ) No observ ation record ed. [id number] Not Available 12/08/2022 18:04:48 09/12/20 23 09/12/2023 upper endos copy proce dure (EGD) (PROC ) No observ ation record ed. [facility] Mike Valles MD [address], [place], [address], 09/12/2023 17:31:44 09/16/20 23 09/16/2023 RF, upper gastr ointe rose l tract , w/ contr ast PO No observ ation record ed. [email or web address] (Imaging) [address], [place], [address], 10/27/2023 10:21:46 Result Notes None recorded. Problems Name Problem SNOMED Code Status Onset Date Resolution Date Notes Provider Name and Address Organization Details Recorded Time Acute tonsillitis 63019746 Active Not Available [facility] 3 18:03:37 Gastroesophag eal reflux disease 695382756 Active CHANDLER Lawson [place] [employer] [facility] 3 12:28:36 Fever 511305976 Active Not Available [facility] 3 18:03:38 Body mass index 40+ - severely obese 679548579 Active Not Available [facility] 3 18:03:38 Vomiting 252747534 Active Not Available [facility] 3 18:03:38 Attention deficit hyperactivity disorder, predominantly inattentive type 34148527 Active 2021 CHANDLER Lawson, [place] [facility] [employer] [facility] 3 12:28:30 Fatigue 38974480 Active 2022 MAISHA Lanier [address], [address], [place], [address] , [place] [facility] 3 12:51:05 Leukocytosis 661599920 Active 2022 MAISHA Lanier [address], [address], [place], [address] , [place] [facility] 3 22:44:32 Liver enzymes level above reference range 532706267 Active 2022 MAISHA Lanier [address], [address], [place], [address] , [place] [facility] 3 22:44:52 Asthma 716312924 Active 2022 CHANDLER Lawson, [place] [facility] 3 11:05:17 Herpes labialis 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 Active 2022 MAISHA Lanier [address], [address], [place], [address] , [facility] 3 13:22:30 Burning epigastric pain 04735732 Active 2022 MAISHA Lanier [address], [address], [place], [address] , [place] [facility] 3 15:10:37 Acid reflux 267752266 Active 2022 MAISHA Lanier [address], [address], [place], [address] , [place] [facility] 3 15:10:40 Nausea and vomiting 04912217 Active 2022 MAISHA Lanier [address], [place], [address] , [place] [facility] 3 15:10:45 Problem Notes None recorded. Procedures Surgical History Date Name Laterality Status Provider Name and Address Organization Details Recorded Time 08/31/2022 Date of Last Pap Smear completed Not Available [facility] 12/08/2022 18:02:46 other completed Not Available [facility] 10/2022 18:02:47 Imaging Results None recorded. Procedure Notes None recorded. Medical Equipment None [...] enidate ER 10 mg capsule,ext ended release [id number]- 50 Take 1 capsule every day by oral route. 08/16 completed Not Available Not Available Not Available dexmethylph enidate ER 20 mg capsule,ext ended release [id number]- 50 Take 1 capsule every day by [...] Not Available Not Avai lable Estarylla 0.25 mg-0.035 mg tablet TK 1 T PO QD 12/18 completed Not Available Not Available Not Available albuterol sulfate 90 mcg/actuati on breath activated powder inhaler Inhale 2 puffs every 4 hours by inhalatio n route. 09/07 completed Not Available Not Available Not Available Vitals Date Recorded Body height Body temperature Body mass index (BMI) Body weight Respiratory rate Heart rate Oxygen saturation Systolic And Diastolic Provider Name and Address Organization Details Last Updated DateTime 3 148.59 cm 97.2 [degF] 49.9 kg/m2 883532. 95 g 16 /min 98 /min 98 % 128/82 mm[Hg] CHANDLER Lawson [place] [employer] [facility] 3 12:37:38 Date Recorded Body height Provider Name an d Address Organization Details Last Updated DateTime 08/30/2023 148.59 cm CHANDLER Lawson [facility] 08/30/2023 14:44:59 Date Recorded Body mass index (BMI) Body weight Heart rate Oxygen saturation Systolic And Diastolic Provider Name and Address Organization Details Last Updated DateTime 08/30/2023 49.1 kg/m2 960282.5 8 g 87 /min 97 % 122/84 mm[Hg] Alicia Turner MA [facility] 3 14:50:37 Date Recorded Body mass index (BMI) Body height Oxygen saturation Heart rate Body temperature Body weight Systolic And Diastolic Provider Name and Address Organization Details Last Updated DateTime 1 47.3 kg/m2 148.59 cm 98 % 97 /min 97.5 [degF] 478448. 25 g 120/80 mm[Hg] Not Available [facility] 3 18:02:57 Date Recorded Body mass index (BMI) Body height Oxygen saturation Heart rate Respiratory rate Body temperature Body weight Systolic And Diastolic Provider Name and Address Organization Details Last Updated DateTime 2 52.4 kg/m2 148.59 cm 97 % 90 /min 16 /min 97.9 [degF] 545766. 05 g 128/80 mm[Hg] Not Available [facility] 3 18:02:57 Social History Question Answer Notes LastModified by Organizat ion Details LastModified Time Tobacco Smoking Status Never Smoker Not Available [facility] 12/08/2022 18:02:35 What Is Your Level Of Caffeine Consumption? Moderate [id number] Information not available 12/08/2022 How Much Tobacco Do You Chew? None [id number] Information not available 12/08/2022 What Type Of Diet Are You Following? REGULAR [id number] Information not available 12/08/2022 Which Illicit Or Recreational Drugs Have You Used? None [id number] Information not available 12/08/2022 Are There Any Guns Present In Your Home? Yes [id number] Information not available 12/08/2022 How Much Tobacco Do You Smoke? No [id number] Information not available 12/08/2022 How Many Years Have You Smoked Tobacco? 0 [id number] Information not available 12/08/2022 Sex: Unknown Functional Status Question Answer Note LastModified by Organizat ion Details LastModified Time Do you or have you ever used any other forms of tobacco or nicotine? No [email or web address] Information not available 03/21/2023 What is your level of alcohol consumption? 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 Occasional [id number] Information not available 12/08/2022 Mental Status None recorded. Family History Relationship Description Onset Age of this Age Resolved Age Notes LastModified by Organization Details LastModified Time Mother Cerebrovascu lar accident [id number] Not available 12/08/2022 18:02:48 Mother Disorder of thyroid gland [id number] Not available 12/08/2022 18:02:48 Mother Depressive disorder [id number] Not available 12/08/2022 18:02:48 Mother Asthma [id number] Not available 12/08/2022 18:02:48 Mother Anxiety disorder [id number] Not available 12/08/2022 18:02:48 Father Hypertensive disorder [id number] Not available 12/08/2022 18:02:48 Father Alcoholism [id number] Not available 12/08/2022 18:02:48 Father Depressive disorder [id number] Not available 12/08/2022 18:02:48 Medical History Condition Response NERVE DISEASE N BLINDNESS N RHEUMATIC FEVER N KIDNEY STONES N BLADDER PROBLEMS N OTHER # 1 N POLIO N LUNG DISEASE/DISORDER N RADIATION / CHEMOTHERAPY N COPD N Other # 2 N BLOOD DISEASES N SURGERY N EAR OR HEARING PROBLEMS N MUMPS N BOWEL PROBLEMS N DEPRESSION (INCLUDING POST ) N STROKE/TIA N ULCERS N BENIGN PROSTATIC HYPERPLASIA N MEASLES N MYOCARDIAL INFARCTION N OBESITY Y GERD/NAUSEA N ANEURYSM N URINARY/BLADDER/KIDNEY PROBLEMS N INPATIENT PSYCH CARE N CORONARY ARTERY DISEASE (CAD) N ADDICTION CONCERNS N ENDOMETRIOSIS N Impotence [...] HAVE YOU BEEN HOSPITALIZED OR SEEN IN [facility] IN THE PAST YEAR ? N ATHEROSCLEROSIS [...] virus, quadrivalent, preservative 1 completed Not Available [facility] 12/08/2022 18:04:43 COVID-19, mRNA, LNP-S, PF, 30 mcg/0.3 mL dose 1 completed Not Available [facility] 12/08/2022 18:04:43 COVID-19, mRNA, LNP-S, PF, 30 mcg/0.3 mL dose 1 completed Not Available [facility] 12/08/2022 18:04:43 COVID-19, mRNA, LNP-S, PF, 30 mcg/0.3 mL dose 0 completed Not Available [facility] 12/08/2022 18:04:43 influenza, unspecified formulation 6 completed Not Available [facility] 12/08/2022 18:04:43 influenza, unspecified formulation 5 completed Not Available [facility] 12/08/2022 18:04:43 Past Encounters Encounter ID Performer Location Encounter Start Date Encounter Closed Date Diagnosis/Indication Diagnosis SNOMED-CT Code Diagnosis ICD10 Code Diagnosis IMO Codes Diagnosis Note [id number] MAISHA Lanier [facility] [place] [address] [place] [address] 12/18/2020 00:00:00 01/02/2021 00:56:22 [id number] MAISHA Lanier [facility] [place] [address] [place] [address] 09/07/2021 00:00:00 09/07/2021 21:49:41 [id number] MAISHA Lanier [facility] [place] [address] [place] [address] 09/21/2022 00:00:00 10/07/2022 17:08:04 [id number] MAISHA Lanier [facility] [place] [address] [place] [address] 03/21/2023 12:26:25 03/21/2023 12:56:05 Fatigue 33444433 R53.83 check full fatigue lab panel. Diabetes m ellitus screening 868841939 Z13.1 screening diabetes due Cholesterol screening 27 7492453 Z13.220 fasting lipids due. Long-term drug therapy 678430157 Z79.899 Attention deficit hyperactivity disorder, predominantly inattentive type 23170788 F90.0 stable on adderall medication . [id number] MAISHA Lanier [facility] [place] [address] [place] [address] 08/30/2023 14:44:13 08/30/2023 15:15:48 Burning epigastric pain 81319396 R10.13 check abdominal u/s , will proceed with EGD testing as well due to nature of symptoms and underlying reflux. Acid reflux 498256256 K2 1.9 check UGI series acutely. start pantoprazo le 40mg daily. Nausea and vomiting 1692 1999 R11.2 evaluation as ordered above. Health Concerns Section Related Observation LastModified by Organization Detai ls LastModified Time None Recorded Concern Status LastModified by Organization Details LastModified Time None Recorded Advance Directives Directive None Recorded Payers Insurance Date Sequence Insurance Name Policy Number Policy Montesinos Covered Member ID Montesinos Member ID Guarantor Name 09/05/2023 1 [facility] - DOS ON OR AFTER 21 (MEDICAID REPLACEMENT - HMO) Mckayla Orellana [id number] Mckayla Orellana Notes Date Note Type Note Provider Name and Address Organization Details Recorded Time 3 text/html Adult ADHDReported by PatientPsychiatry ADHDFor timing of symptoms, patient reportschronic. For adhd context, patient reportsincreased productivity at work,improved school performance,able to set limits with obligations,no dysfunction in family, andno financial problems. For modifying factors, patient reportsmedications as directed. For adhd associated symptoms inattention, patient reportsable to pay attention,well organized,does not make careless mistakes,not easily distracted,attention to detail,not forgetful,no difficulty focusing,not bored easily,no daydreaming,no confusion,no difficulty processing information, andno difficulty following instructions. For adhd associated symptoms impulsivity, patient reportspatient,does not interrupt conversations/activities,d oes not blurt out inappropriate comments, andshows emotion with restraint. For adhd associated symptoms hyperactivity, patient reportsdoes not fidget/squirm,no excessive talking,does not run/move in inappropriate situations,not constantly in motion, andno difficulty with quiet tasks/activities. FatigueReported by PatientHPIFor severity, patient reportsworseningbut reportsnormal sleep patternsandnormal activity. For timing, patient reportsworse. For context, patient reportssymptoms do not improve on weekends/vacationsandprobl ems/stress at work or home. For quality, patient reportscontinuous. For duration, patient reportsconstant. For modifying factors, patient reportsno new stressors in life. For associated symptoms, patient reportsno drug/alcohol withdrawal,no depression,no anxiety,no sleep disturbances,no snoring,periods of not breathing (apnea) have not been observed, andno recent change in weight. MAISHA Lanier [address] [facility], [facility] [address], [place], [address], [place] [facility] 04/08/2023 23:29:57 3 text/html Abdominal PainReported by PatientAbdominal PainFor quality, patient reportsburning. For onset/timing, patient reportsworse. For associated symptoms, patient reportsheartburn. For location, patient reportsepigastric. For duration, patient reportsstarted: (3 days ago). Reflux/GERDReported by PatientHPIFor quality, patient reportsburning. For severity, patient reportsworseningbut reportsmoderate. For context, patient reportsrelated to any meal,related to spicy foods, andpositionalbut reportsnon-smoker,no drug/alcohol abuse, andno drug alcohol withdrawal. For aggravating factors, patient reportslying downandworsened by food. For associated symptoms, patient reportsnausea,vomiting,reg urgitation, andheartburn. For duration, patient reportspresent for 1-6 months. For onset/timing, patient reportsdailyandoccurs immediately after meals. For alleviating factors, patient reportsnothing helps. MAISHA Lanier [address] [facility], [place] [address], [place], [address], [facility] 09/01/2023 21:01:44 OBGyn Episode No OBEpisode recorded.
--- OUTSIDE RECORDS SUMMARY | 2025-09-02 15:18 | XMS_ITS | Clinical Summary ---
Author Organization [facility] Address [address] [place] [address] Care Team Providers Care Angle Shearer Name Role Phone Kaley Tapia Primary Care [...] Date 36 weeks gestation of 07/16/2024 Immunizations Immunization Administration Dates Next Due Influenza, Unspecified 07/05/2022 [...] on file Legal Sex Female 9:13 AM [employer] Gender Identity Not on file Sexual Orientation [...] THER Hollie Kohli MD Complications:None Delivery Location:This [facility] ([facility]) Last Filed Vital Signs Vital Sign Reading Time Taken Comments Blood Pressure 130/89 06/03/2023 3:54 PM CDT Pulse 97 06/03/2023 3:54 PM CDT Temperature 36 C (96.8 F) 06/03/2023 3:54 PM CDT Respiratory Rate 18 06/03/2023 3:54 PM CDT Oxygen Saturation 100% 06/03/2023 3:54 PM CDT Inhaled Oxygen Concentration - - Weight 109.3 kg (241 lb) 06/03/2023 3:54 PM CDT Height 147.3 cm (4' 10) 06/03/2023 3:54 PM CDT Body Mass Index 50.37 06/03/2023 3:54 PM CDT Plan of Treatment Health Maintenance Due Date Last Done Comments Cervical Cancer Screening 1993 Depression Screening 1993 Hepatitis C Screening 1993 Varicella Vaccines (1 of 2 - 13+ 2-dose series) 2006 Regular Well Visit/Exam 18-64 2011 Pneumococcal vaccine <65 (1 of 2 - PCV) 2012 HPV Vaccines (1 - 3-dose SCD M series) 2020 Covid-19 Vaccine ( - 2024-2 6 season) 2025 06/21/2022, 09/07/2021, 06/22/2021, Additional history exists Influenza Vaccine (#1) 2025 , 07/14/2021, 07/14/2021, Additional history exists DTaP/Tdap/Td Vaccine (7 - Td or Tdap) 06/29/2032 06/29/2022, 10/18/2016, 03/22/1995, Additional history exists Hepatitis B Screening Completed 07/09/1994 , 02/01/1994, 1993 Insurance [facility] Advance Directives For more information, please contact: [phone] * Full Code (Latest Code Status on File) Date Activated Date Inactivated Comments 07/17/2022 10:59 PM 07/19/2022 8:51 PM * Full Code Date Activated Date Inactivated Comments 07/16/2022 7:26 PM 07/17/2022 10:59 PM Full CPR in case of cardiopulmonary arrest Healthcare Agents on File Name Relationship Healthcare Agent [facility] Communication Trever Bishop Significant Other Health Care Agent Care Teams Angle Shearer Relationship Specialty Start Date End Date Kaley Tapia PA PCP - General 04/19/21
--- OUTSIDE RECORDS SUMMARY | 2025-09-02 15:19 | XMS_ITS | Data Portability ---
Author Organization MARIANN Ancelmo HORN Address [address] [facility] [address] Care Team Providers Care Commercial Real Estate Manager Name Role Phone MARINE RAD Public Housing Interviewer Assessment No assessment recorded. Plan of Treatment Reminders Order Date Submit Date Provider Last Modified By Organization Details Last Modified Time Details Appointments ANY 15 2025 03:00P M MAISHA Lanier Not available Not available Not available Lab None recorded. Referral None recorded. Procedures None recorded. Surgeries None recorded. Imaging None recorded. Medication Orders dextroamp hetamine- amphetami ne 20 mg tablet 2024 025 [email or web address] [address], [address], 08/21/2025 15:56:33 dextroamp hetamine- amphetami ne 20 mg tablet 2024 025 [email or web address] [facility] [address], [address], 08/21/2025 15:56:33 valacyclo vir 1 gram tablet 2024 025 [facility] [address], [address], 2024 14:44:31 pantopraz ole 40 mg tablet,de layed release 2024 025 [facility] [place], [address] [place] [address], [address], 2024 14:44:31 dextroamp hetamine- amphetami ne 20 mg tablet 2024 025 [email or web address] [address], [address], 08/21/2025 15:56:33 Patient TargetsNo targets recorded. Patient Instructions Encounter Date Encounter Id Patient Instructions Last Modified By Organization Details Last Modified Time 03/16/2024 [id number] A healthy lifestyle: care [email or web address] Not available 04/08/2024 19:17:31 2024 [id number] A healthy lifestyle: care instructions Not available 12/08/2024 17:25:38 02/15/2025 [id number] A healthy lifestyle: care instructions Not available 02/15/2025 16:37:00 Reason for Referral Orthopedic Surgeon Referral for Pain of knee region Referring Physician: Kaley Tapia, Internal Medicine, Encounter Date: 08/21/2025 Results Created Date Observation Date Name Description Value Unit Range Abnormal Flag Note LastModifiedBy Organization Detail LastModifiedTime 03/26/2003/26/2024 pap test, thinp rep, cervi pepper Pap, thin prep neg Not Available Not Available 05/10 11:43:17 09/02/20 25 09/02/2025 XR, knee, 1 or 2 view No observ ation record ed. [email or web address] [facility] [address], [place], [address], 09/02/2025 15:41:48 Result Notes None recorded. Problems Name Problem SNOMED Code Status Onset Date Resolution Date Notes Provider Name and Address Organization Details Recorded Time Heart murmur 19359012 Completed 01/20/2022 Removal Reason: as a infant, resolved CHANDLER [place], [place] [facility] 10:07:25 Asthma 094838490 Active [place]ANDL[place] [facility] 2 10:07:52 Anemia 323606482 Completed 01/20/2022 Heidy Hernandez [place] [facility] 2 10:08:06 Pregnanc y 51950164 Completed 202107/28/2022 Heidy [place] [facility] 2 09:45:51 Herpes labialis 6356259 Active 2023 Tiana [place] [facility] 4 12:28:16 Leukocyt osis 535550459 Active 2023 [place] [facility] 4 12:28:26 Gastroes ophageal reflux disease 744960307 Active 2023 [place] [facility] 4 12:28:33 Attentio n deficit hyperact ivity disorder 244201266 Active 2023 T[place] [facility] 4 12:28:57 Obesity 267753936 Active 2023 MAISHA Lanier Attn: Accounting ,[address] [place], [address] , [place] [facility] 4 19:17:28 Body mass index 40+ - severely obese 768074943 Active 2023 MAISHA Lanier Attn: Accounting ,[address] [place], [address] , [place] [facility] 4 19:17:29 Gastroes ophageal reflux disease without esophagi tis 664142913 Active 2024 MAISHA Lanier Attn: Accounting ,[address] [place], [address] , [place] [facility] 5 17:24:30 Hyperten sive disorder 62918074 Active 2024 MAISHA Lanier Attn: Accounting ,[address] [place], [address] , [place] - [facility] 5 17:24:41 Positive screenin g for depressi on on PHQ-9 (Patient Health Question naire 9) 72674883959 9100 Active 2024 MAISHA Lanier Attn: Accounting ,[address] [facility], [place], [address] , [facility] - [facility] 5 00:50:02 Obese class III 442045739 Active 2024 MAISHA Lanier Attn: Accounting ,[address] [facility], [place], [address] , [facility] - [facility] 5 16:36:22 Long-ter m current use of drug therapy 403998482 Active 2024 MAISHA Lanier Attn: Accounting ,[address] [facility], [place], [address] , [facility] - [facility] 5 13:41:02 Problem Notes None recorded. Procedures Surgical History Date Name Laterality Status Provider Name and Address Organization Details Recorded Time 09/30/20 24 section completed Lauren Nelson [place] [facility] 2024 14:25:41 08/31/20 22 Date of Last Pap Smear completed Heidy Hernandez Radha [facility] 09/08/2022 16:38:49 colonoscopy completed Heidy Hernandez Radha [facility] 01/20/2022 10:10:32 Imaging Results None recorded. Procedure Notes None recorded. Medical Equipment None Reported. Allergies No known drug allergies Medications Name Sig Start Date Stop Date Status Note LastModified by Organization Details LastModified Time amoxicill in 500 mg capsule TAKE 2 CAPSULES BY MOUTH TWICE DAILY 06/20 completed Not Available Not Available Not Available nystatin 100,000 unit/mL oral suspensio n TAKE 5 MILLILIT ERS BY MOUTH 4 TIMES A DAY 02/15 completed Not Available Not Available Not Available labetalol 200 mg tablet Take 1 tablet every day by oral route for 90 days. 02/15 completed Not Available Not Available Not Available fluconazo le 150 mg tablet TAKE ONE TAB BY MOUTH ON DAYS 1, 3, AND 7 11/12 /2025 completed Not Available Not Available Not Available valacyclo vir 1 gram tablet TAKE 2 TABLETS EVERY 12 HOURS BY MOUTH NEEDED active Not Available Not Available No t Available hydrocodo ne 5 mg-acetam inophen 325 mg tablet TAKE 1 TO TWO TABLETS BY MOUTH EVERY 4 HOURS NEEDED FOR PAIN 03/16 completed Not Available Not Available Not Available ondansetr on HCl 4 mg tablet TAKE 1 TO 2 TALETS BY MOUTH EVERY 6-8 HOURS FOR NAUSEA 03/16 completed Not Available Not Available Not Available prednison e 20 mg tablet TAKE 3 TABLETS BY MOUTH EVERY DAY FOR 2 DAYS THEN TAKE 2 TABLETS BY MOUTH EVERY DAY FOR 2 DAYS THEN TAKE 1 TABLET BY MOUTH EVERY DAY FOR 2 DAYS 06/11 completed Not Available Not Available Not Available valacyclo vir 500 mg tablet TAKE 1 TABLET BY MOUTH EVERY DAY 01/20 completed Not Available Not Available Not Available sulfameth oxazole 800 mg-trimet hoprim 160 mg tablet TAKE 1 TABLET BY MOUTH TWICE DAILY FOR 10 DAYS 01/20 completed Not Available Not Available Not Available butalbita l-acetami nophen-ca ffeine 50 mg-325 mg-40 mg tablet Take 1 tablet every 3 months by oral route for 10 days. active NEEDS REFILLED Not Available Not Available Not Available cephalexi n 500 mg capsule TAKE 1 CAPSULE BY MOUTH FOUR TIMES DAILY FOR 10 DAYS 06/20 completed Not Available Not Available Not Available pantopraz ole 40 mg tablet,de layed release Take 1 tablet every day by oral route. 2024 active Not Available Not Available Not Avai lable nystatin 100,000 unit/gram topical cream APPLY LIBERALL Y TO AFFECTED AREA TWICE A DAY active Not Available Not Available No t Available dextroamp hetamine- amphetami ne 20 mg tablet Take 1 tablet twice a day by oral route for 30 days. 2024 active Not Available Not Available Not Avai lable dextroamp hetamine- amphetami ne 15 mg tablet TAKE 1 TABLET BY MOUTH TWICE DAILY 01/20 completed Not Available Not Available Not Available mupirocin 2 % topical ointment APPLY TOPICALL Y TO RASH THREE TIMES DAILY FOR 7 DAYS 01/20 completed Not Available Not Available Not Available ibuprofen 600 mg tablet TAKE 1 TABLET BY MOUTH EVERY 6 HOURS NEEDED FOR CRAMPS 11/19 completed Not Available Not Available Not Available methylpre dnisolone 4 mg tablets in a dose pack FOLLOW PACKAGE DIRECTIO NS 01/20 completed Not Available Not Available Not Available albuterol sulfate HFA 90 mcg/actua tion aerosol inhaler Inhale 2 puffs every 4-6 hours by inhalati on route. 2024 active Not Available Not Available Not Avai lable nitrofura ntoin monohydra te/macroc rystals 100 mg capsule TAKE 1 CAPSULE BY MOUTH TWICE A DAY 11/19 completed Not Available Not Available Not Available Zyrtec active Not Available Not Availa ble Not Available hydrocodo ne 5 mg-acetam inophen 300 mg tablet TAKE 1 TABLET BY MOUTH EVERY 4 HOURS NEEDED FOR PAIN 11/19 completed Not Available Not Available Not Available hydrochlo rothiazid e 12.5 mg tablet Take 1 tablet every day by oral route. 2024 active Not Available Not Available Not Avai lable Vitals Date Recorded Respiratory rate Systolic And Diastolic Provider Name and Address Organization Details Last Updated DateTime 2024 16 /min 132/84 mm[Hg] MAISHA Lanier Attn: Accounting,[address] [place], [address], [facility] 2024 14:43:55 Date Recorded Body height Body mass index (BMI) Body weight Oxygen saturation Heart rate Systolic And Diastolic Provider Name and Address Organization Details Last Updated DateTime 147.32 cm 56.3 kg/m2 109625. 14 g 97 % 88 /min 122/82 mm[Hg] Lauren Nelson MA [facility] 14:27:47 Date Recorded Body height Body mass index (BMI) Body weight Oxygen saturation Heart rate Respiratory rate Systolic And Diastolic Provider Name and Address Organization Details Last Updated DateTime 5 147.32 cm 54.8 kg/m2 439057. 2 g 97 % 105 /min 16 /min 120/82 mm[Hg] Lauren Nelson MA [facility] 16:34:25 Date Recorded Body height Body mass index (BMI) Body weight Respiratory rate Oxygen saturation Heart rate Systolic And Diastolic Provider Name and Address Organization Details Last Updated DateTime 4 147.32 cm 53.9 kg/m2 303467. 83 g 20 /min 99 % 96 /min 110/72 mm[Hg] Lauren Nelson MA [facility] 4 15:46:51 Date Recorded Body height Provider Name an d Address Organization Details Last Updated DateTime 05/22/2025 147.32 cm MAISHA Lanier Attn: Accounting,[address] [place], [address], [facility] 05/22/2025 14:19:09 Date Recorded Body height Body mass index (BMI) Body weight Oxygen saturation Heart rate Systolic And Diastolic Provider Name and Address Organization Details Last Updated DateTime 5 147.32 cm 52.7 kg/m2 619152. 28 g 98 % 100 /min 148/82 mm[Hg] Lauren Nelson MA [facility] 5 15:17:35 Social History Question Answer Notes LastModified by Organizat ion Details LastModified Time Tobacco Smoking Status Never Smoker CHANDLER Frost, [facility] 01/20/2022 10:10:07 Do You Have An Advance Directive? No Information not available 03/16/2024 Are You Blind Or Do You Have [...] No Information not available 01/20/2022 Are You Deaf Or Do You Have Serious Difficulty Hearing? No Information not available 03/16/2024 What Type Of Diet Are You Following? REGULAR [email or web address] Information not available 12/12/2023 What Was The Date Of Your Most Recent Tobacco Screening? 08/21/2025 Information not available 08/21/2025 Do You Use Protection During Sex? No Information not available 01/20/2022 What Is Your Relationship Status? Single [email or web address] Information not available 12/12/2023 Do You Use Your Seat Belt Or Car Seat Routinely? Yes [email or web address] Information not available 12/12/2023 Are You Sexually Active? Yes Information not available 01/20/2022 Do You Have Smoke And Carbon Monoxide Detectors In Your Home? Yes [email or web address] Information not available 12/12/2023 Do You Use Sunscreen Routinely? Yes [email or web address] Information not available 12/12/2023 Has Tobacco Cessation Counseling Been Provided? Yes Information not available 03/16/2024 On What Date Was Tobacco Cessation Counseling Provided? 08/21/2025 Information not available 08/21/2025 Sex: Female Functional Status Question Answer Note LastModified by Organizat ion Details LastModified Time Do you use any illicit or recreational drugs? No Information not available 01/20/2022 Do you or have you ever used any other forms of tobacco or nicotine? No Information not available 01/20/2022 What is your level of alcohol consumption? None Information not available 01/20/2022 Are you currently employed? Yes [email or web address] Information not available 12/12/2023 Are you able to care for yourself independently? Yes [email or web address] Information not available 12/12/2023 What is your occupation? [employer] Information not available 03/16/2024 Mental Status Question Answer Note LastModified by Organization D etails LastModified Time Do you feel stressed (tense, restless, nervous, or anxious, or unable to sleep at night)? [id number] Information not available 03/16/2024 Family History Relationship Description Onset Age of this Age Resolved Age Notes LastModified by Organization Details LastModified Time Father Carcinoma of prostate [email or web address] Not available 2021 10:09:14 Father Hypertensive disorder [email or web address] Not available 2021 10:09:39 Father Hypercholest erolemia [email or web address] Not available 2021 10:09:50 Father Harmful pattern of use of alcohol [email or web address] Not available 2024 14:33:32 Mother Cerebrovascu lar accident [email or web address] Not available 10:09:23 Mother Asthma [email or web address] Not available 2024 14:33:37 Mother Attention deficit hyperactivit y disorder [email or web address] Not available 11/19 14:33:48 Mother Depressive disorder [email or web address] Not available 2024 14:33:59 Mother Disorder of thyroid gland tcarterma Not available 2024 14:34:08 Sister Attention deficit hyperactivit y disorder tcarterma Not available 11/19 14:33:48 Sister Disorder of thyroid gland tcarterma Not available 2024 14:34:08 Brother Attention deficit hyperactivit y disorder [email or web address] Not available 11/19 14:33:48 Son Autism spectrum disorder [email or web address] Not available 2024 15:15:39 Medical History Condition Response Headaches Y Asthma Y Gynecological History Statement/Question Response Date of LMP 08/04/2025 Sexually Active? Y On BCP's at Conception? [...] Organization Details Recorded Time DTP 4 completed [place]AND[place] [facility] 06/11/2022 13:57:25 Hib, unspecified formulation 4 completed [place] [facility] 06/11/2022 13:57:25 COVID-19, mRNA, LNP-S, PF, 30 mcg/0.3 mL dose 1 completed Heidy [place] [facility] 06/11/2022 13:57:25 Hib, unspecified formulation 4 completed Heidy Mary, [place] [facility] 06/11/2022 13:57:25 OPV, trivalent 4 completed Heidy Mary, [place] [facility] 06/11/2022 13:57:25 Tdap 7 completed Heidy Mary, [place] [facility] 06/11/2022 13:57:25 DTP 4 completed Heidy Mary, [place] [facility] 06/11/2022 13:57:25 OPV, trivalent 5 completed Heidy Mary, [place] [facility] 06/11/2022 13:57:25 OPV, trivalent 4 completed Heidy Mary, [place] [facility] 06/11/2022 13:57:25 Hep B, adolescent or pediatric 4 completed Heidy Hernandez, [place] [facility] 06/11/2022 13:57:25 Influenza, split virus, quadrivalent, preservative 9 completed Heidy Hernandez, [place] - [...] split virus, trivalent, preservative 1 completed Heidy [place] [facility] 06/11/2022 13:57:25 Influenza, split virus, quadrivalent, PF 0 completed Heidy [place] [facility] 06/11/2022 13:57:25 Hib, unspecified formulation 4 completed Heidy Hernandez, [place] [facility] 06/11/2022 13:57:25 COVID-19, mRNA, LNP-S, PF, 30 mcg/0.3 mL dose 1 completed Heidy [place] [facility] 06/11/2022 13:57:25 DTP 4 completed Heidy [place] [facility] 06/11/2022 13:57:25 COVID-19, mRNA, LNP-S, bivalent, PF, 30 mcg/0.3 mL dose 2 completed Heidy [place] [facility] 06/29/2022 17:09:15 [...] 15:21:58 influenza, unspecified formulation 4 completed Lauren Nelson [place] [facility] 08/23/2024 15:22:53 Past Encounters Encounter ID Performer Location Encounter Start Date Encounter Closed Date Diagnosis/Indication Diagnosis SNOMED-CT Code Diagnosis ICD10 Code Diagnosis IMO Codes Diagnosis Note [id number] MD Mandeep Hickman 14 OB [address] [facility] [place] [address] 01/20/2022 09:44:14 01/21/2022 06:04:56 Normal 41005166 Z34.90 [id number] MD Mandeep Hickman 14 OB 4 [facility] [place] [address] 02/12/2022 14:10:53 02/15/2022 05:51:06 Normal 14531942 Z34.90 [id number] MD Mandeep Hickman 14 OB 4 [facility] [place] [address] 03/12/2022 10:00:44 03/15/2022 08:05:46 Normal 70955416 Z34.90 [id number] MD Mandeep Hickman 14 OB 4 [facility] [place] [address] 04/09/2022 13:40:28 04/13/2022 07:46:50 Normal 65349105 Z34.90 [id number] MD Mandeep Hickman 14 OB 4 [facility] [place] [address] 04/30/2022 14:37:53 05/03/2022 15:11:46 Normal 34840363 Z34.90 [id number] MD Mandeep Hickman 14 OB 4 [facility] [place] [address] 05/21/2022 10:02:07 05/24/2022 09:50:08 Normal 87308315 Z34.90 [id number] MD Mandeep Hickman 14 OB 4 [facility] [place] [address] 06/11/2022 13:45:03 06/15/2022 09:57:56 Normal 44358661 Z34.90 [id number] MD Mandeep Hickman 14 OB 4 [facility] [place] [address] 06/29/2022 14:23:40 06/30/2022 08:25:41 Normal 90975803 Z34.90 Administra tion of diphtheria, pertussis, and tetanus vaccine 689931792 Z23 [id number] MD Mandeep Hickman 14 OB [address] [facility] [place] [address] 07/16/2022 14:38:51 07/19/2022 08:39:54 Normal 93475174 Z34.90 Pre-eclampsia 150012162 O14.93 [id number] MD Mandeep Hickman 14 OB [address] [facility] [place] [address] 07/23/2022 14:08:41 07/26/2022 09:17:11 Transient hypertension of - delivered 180711699 O13.9 [id number] MD Mandeep Hickman 14 OB 4 [facility] [place] [address] 07/28/2022 10:02:08 08/04/2022 12:33:41 Transient hypertension of - delivered 994738418 O13.9 [id number] MD Mandeep Hickman 14 OB [address] [facility] [place] [address] 08/10/2022 11:34:37 08/13/2022 13:29:36 care 401843297 Z39.2 Transient hypertension of - delivered 017713016 O13.9 [id number] MD Mandeep Hickman [address] [place] [address] [place] [address] 08/31/2022 10:42:22 09/01/2022 16:29:05 care 598849692 Z39.2 [id number] MD Mandeep Hickman [address] [place] [address] [place] [address] 06/20/2023 14:44:31 06/22/2023 11:36:51 Miscarriage 72436758 O03.9 [id number] MD Mandeep Hickman [address] [place] [address] [place] [address] 06/29/2023 16:52:40 06/30/2023 10:53:05 Miscarriage 13416497 O03.9 [id number] Adilson Allan MD [facility] [address] [place] [address] 03/16/2024 15:32:59 04/09/2024 16:08:15 Attention deficit hyperactivity disorder 161512161 F90.9 off medication for currently 42390780 Z33.1 10 weeks gestation, pt is stable at this time Body mass index 40+ - severely obese 227241559 Z68.43 Obesity 484407362 E66.8 [id number] Adilson Allan MD [facility] [address] [place] [address] 2024 14:04:29 2024 15:14:23 Attention deficit hyperactivity disorder 912617338 F90.9 Restart Adderall at 20 mg twice daily for ADHD management . Contract in place follow up in 3 months Positive s creening for depression on PHQ-9 (Patient Health Questionnaire 9) 9556443922 04739 Z13.31 Patient scored a 9 on screening today which most of it is related to her untreated ADHD and fatigue. No acute concerns with any anxiety or depression issues Gastroesop hageal reflux disease without esophagitis 012717456 K21.9 Restart pantoprazo le 40 mg daily for acid reflux management Herpes labialis 1187177 B00.1 Refill on Valtrex for p.r.n. use Hypertensive disorder 38 794271 I10 related. tapering down. on labetalol 200mg once daily now. 132/84 today on exam Body mass index 40+ - severely obese 906898797 Z68.43 BMI is 56.3 Obesity 183993429 E66.9 discussed healthy diet, exercise, controllin g carbohydra abdiaziz and added sugars in the diet [id number] Adilson Allan MD [facility] [address] [place] [address] 02/15/2025 16:08:37 02/20/2025 15:02:44 Body mass index 40+ - severely obese 475494873 Z68.43 BMI is 54.8 Attention deficit hyperactivity disorder 016673980 F90.9 Refill adderall at 20 mg twice daily for ADHD management . Contract in place follow up in 3 months Gastroesop hageal reflux disease without esophagitis 502618418 K21.9 stable on pantoprazo le 40 mg daily for acid reflux management Obese class III 79259923 5 E66.813 3654881399 BMI is 54.8 Positive s creening for depression on PHQ-9 (Patient Health Questionnaire 9) 5040467128 15580 Z13.31 5365939414 Patient was positive on screening today but overall does feel improved on her ADHD medication [id number] Adilson Allan MD [facility] [address] [place] [address] 05/22/2025 14:08:57 05/22/2025 14:26:50 Attention deficit hyperactivity disorder 118425696 F90.9 Refill adderall at 20 mg twice daily for ADHD management . Contract in place follow up in 3 months Long-term current use of drug therapy 870661368 Z79.899 16786926 Injury of right knee 140 4858920 7357423 S89.91XA 2590653 Supportive care at this time reassess if symptoms do not improve in the next 2-4 weeks [id number] MAISHA Lanier [facility] [address] [place] [address] 08/21/2025 15:08:27 08/22/2025 08:33:51 Gastroesophageal reflux disease without esophagitis 648414757 K21.9 stable on pantoprazo le 40 mg daily for acid reflux management Morbid obesity 683255290 E66.01 35147780 discussed healthy diet, exercise, controllin g carbohydra abdiaziz and added sugars in the diet Pain of knee region 1003 337206 M25.561 G89.29 50943842 Patient is taking Ibuprofen/ Alleve as needed Adult heal th examination 411695629 Z00.00 8141060 Refractory migraine 4238 57206 G43.919 [id number] Previously prescribed by test grader Intermittent asthma 4276 42156 J45.20 [id number] Previously prescribed by other doctor Attention deficit hyperactivity disorder 995470233 F90.9 Diabetes m ellitus screening 827705948 Z13.1 256720 Hyperlipid emia screening 689889811 Z13.220 065830 Thyroid di sorder screening 140308826 Z13.29 185014 Blood pres sure above reference range 14427041 R03.0 910069 related. tapering down. on labetalol 200mg once daily now. 132/84 today on exam Positive s creening for depression on PHQ-9 (Patient Health Questionnaire 9) 6492820963 70283 Z13.31 8636167222 Patient was positive on screening today but overall does feel improved on her ADHD medication Health Concerns Section Related Observation LastModified by Organization Detai ls LastModified Time None Recorded Concern Status LastModified by Organization Details LastModified Time None Recorded Advance Directives Directive N: Payers Insurance Date Sequence Insurance Name Policy Number Policy Montesinos Covered Member ID Montesinos Member ID Guarantor Name 02/14/2025 2 [facility] - DOS ON OR AFTER 21 (MEDICAID REPLACEMENT - HMO) Mckayla Orellana [id number] Mckayla Orellana 2024 2 [facility] (MEDICARE REPLACEMENT/A DVANTAGE - HMO) Mckayla Orellana [id number] Mckayla Orellana 08/21/2025 1 [facility] [id number] Mckayla Orellana [id number] Mckayla Orellana 03/16/2024 1 [facility] - DOS ON OR AFTER 21 (MEDICAID REPLACEMENT - HMO) Mckayla Orellana [id number] Mckayla Orellana 08/21/2025 2 [facility] - DOS ON OR AFTER 21 (MEDICAID REPLACEMENT - HMO) Mckayla Orellana [id number] Mckayla Orellana Notes Date Note Type Note Provider Name and Address Organization Details Recorded Time 03/16/2024 text/html ADHD hx. pt is now off medication after recently finding out she is . 10 weeks gestation. MAISHA Lanier Attn: [place], [address], [facility] 04/08/2024 19:17:43 2024 text/html ADHD hx. Patient has had her baby, is doing well is not is interested in getting back on her Adderall medication. Patient also had some hypertension and is on labetalol 200 mg daily. She is here for follow-up Patient is having acid reflux that is notable and she is interested in getting back on medication for management. She was on pantoprazole previously Patient needs a refill on her valacyclovir for cold sore treatment. MAISHA Lanier Attn: Accounting,[address] [facility], [place], [address], [facility] 12/08/2024 17:25:55 02/15/2025 text/html ADHD hx. Patient resumed Adderall medication in November after being and no . Routine follow-up today. Medication is working with no complaints or concerns Patient also had some hypertension and was on labetalol 200 mg daily but that has been discontinued by the party host. For acid reflux management patient is on pantoprazole 40 mg daily and having symptom improvement compared to last visit 3 months ago. MAISHA Lanier Attn: Accounting,[address] [facility], [place], [address], [facility] 03/07/2025 00:50:34 05/22/2025 text/html ADHD hx. Patient resumed Adderall medication in November after being and no . Routine follow-up today. Medication is working with no complaints or concerns MAISHA Lanier Attn: Accounting,[address] [facility], [place], [address], [facility] 06/07/2025 00:37:23 08/21/2025 text/html ROS as noted in the HPI 29yo female presents today for medication follow up and ongoing knee pain after injury. She reports taking her medication for ADHD twice daily. She feels that it has been getting less effective and is wondering if she can increase the dosage. She states her knee pain is a little better but that it is still bothering her. She feels that it has flared up after climbing steps last week. She is currently taking NSAIDs PRN for pain. She previously had the injury from tripping on a pothole for which she says her knee was twisted in a flexed position. Not Available Not Available Not Available OBGyn Episode Ob Episode Information Episode Created Date Number of Fetuses Patient Bloodtype Patient rh Status Prepregnancy Weight lbs Domestic Partner Domestic Partner Phone Father Name Customer Service Technician Status 01/21/20 22 1 O Positive CLOSED Fetus Data First Name Last Name Admitted to NICU Weight (g) Sex Living Outcome Pediatric Complications Fetus ID Race Codes Race Delivery Type false 2664.85 3 M true Full Term [id number] White Vaginal Miguelito Calculation Initial Miguelito Date Initial Exam Date Initial Exam Provider Initial Ultrasound Date Last Menstrual Period Date Ultra Sound Weeks Gestation 08/07/2022 01/20/2022 03/05/2022 10/31/2021 19 Eighteen To Twenty Week Miguelito Update Ultra Sound Date Fundal Height At Umbil Quickening Date Ultra Sound Latest Weeks Gestation Final Miguelito Confirmed By Final Miguelito Confirmed Date Final Miguelito Date Ultra Sound Latest Days Gestation 0 04/09/2022 08/07/20 22 0 Pre-darrick Flowsheet Flowsheet Date 01/20/2022 Murillo Score Blood Edema Fundus Height Fundus Units Glucose Ketones Leukocytes Nitrite Labor Signs Protein Cervic Dilation Cervic Effacement Cervic Station 11 wks 0cm 0% -4 Type Weight in lbs Pre/Post Dialysis Refused With clothes 241.080535147253 BP Diastolic BP Location Tested BP Systolic [...] in lbs Pre/Post Dialysis Refused With clothes 244.752567957410 BP Diastolic BP Location Tested BP Systolic [...] in lbs Pre/Post Dialysis Refused With clothes 251.26712518178 BP Diastolic BP Location Tested BP Systolic [...] in lbs Pre/Post Dialysis Refused With clothes 255.811783170644 BP Diastolic BP Location Tested BP Systolic [...] in lbs Pre/Post Dialysis Refused With clothes 261.15614523001 BP Diastolic BP Location Tested BP Systolic [...] in lbs Pre/Post Dialysis Refused With clothes 261.565730739624 BP Diastolic BP Location Tested BP Systolic [...] in lbs Pre/Post Dialysis Refused With clothes 268.601129978004 BP Diastolic BP Location Tested BP Systolic [...] in lbs Pre/Post Dialysis Refused With clothes 273.896297431680 BP Diastolic BP Location Tested BP Systolic [...] in lbs Pre/Post Dialysis Refused With clothes 276.448866113486 BP Diastolic BP Location Tested BP Systolic [...] in lbs Pre/Post Dialysis Refused With clothes 253.414062176926 BP Diastolic BP Location Tested BP Systolic [...] Estim ated Date of Delivery false Thalassemia ([place]er, Slovak, Mediterranean, Or Background): MCV < 80 false Neural Tube Defect (Meningomyelocele, Spina Bifi da, Or Anencephaly) false Congenital Heart Defect false Down Syndrome false Lavon-Sachs (eg, Muslim, Cajun, Albanian-Dennis) f alse Jony Disease false Sickle Cell Disease Or Trait () false Hemophilia Or Other Blood Disorders false Muscular Dystrophy false Cystic Fibrosis false Rochester's Chorea false Mental Retardation/Autism false If Yes, [...] Induce d Regional-Ep idural 37 false Rad Kohli MD false MIL for pre-eclam psia Discharge Information Feeding Method Contraceptive Method Maternal HG B and HCT Levels Combination
--- OUTSIDE RECORDS SUMMARY | 2025-09-02 15:19 | XMS_ITS | Clinical Summary ---
Author Organization [facility] Address [address] [place] [address] Phone Care Team Providers Care Furnace Combination Analyst Name Role Phone Kaley Tapia Primary Care Provider [phone] Allergies No known active allergies Medications beclomethasone [...] 88 04/28/2021 12:38 AM CDT Temperature 36.2 C (97.1 F) 04/27/2021 9:20 PM CDT Respiratory Rate 16 04/28/2021 12:38 AM CDT Oxygen Saturation 98% 04/28/2021 12:38 AM CDT Inhaled Oxygen Concentration - - Weight 104.3 kg (230 lb) 04/27/2021 9:20 PM CDT Height 147.3 cm (4' 10) 04/27/2021 9:20 PM CDT Body Mass Index 48.07 04/27/2021 9:20 PM CDT Plan of Treatment Health Maintenance Due Date Last Done Comments Hepatitis C Virus (HCV) Screening 1993 Varicella Immunization (1 of 2 - 13+ 2-dose series) 2006 Pap Smear 2014 Human Papillomavirus (HPV) Immunization (1 - 3-dose SCDM series) 2020 Cervical Cancer Screening (CCS) 2023 HPV/Cotest 2023 Influenza Immunization (#1) 06/10/202506/2020, 07/20/2019, 05/26/2018 SARS-COV-2 Immunization ( season) 2025 09/07/2021, 10/21/2020, 09/30/2020 Respiratory Syncytial Virus (RSV) [...] Insurance MEDICAID [employer] Care Teams Furnace Combination Analyst Relationship Specialty Start Date End Date Kaley Tapia PA PCP - General Family Medicine 06/18/16
== END 2025-09-02 13:08 | disposition home or self-care (01) ==
LOC: ANHBWCIMG 13:10
PROVIDERS: PCP Physician Assistant; Visit Provider Orthopaedic Surgery
DX: M25.561 Pain in right knee (principal); W19.XXXD Unspecified fall, subsequent encounter
CPT/HCPCS: 73564